=== PATIENT | male | born 1945 | race Caucasian/White ===

== ENCOUNTER 2016-10-16 18:36 | Inpatient (IN) ==
[2016-10-16] MEDS ORDERED: SOLU-MEDROL IV ONE (18:46)
[2016-10-16] MEDS ORDERED: DUONEB (A & A) INH ONE (18:46)
[2016-10-16] MEDS ORDERED: LEVAQUIN 750 MG in NS 150 ML IV ONE (18:46)
--- NOTE | 2016-10-16 18:56 | PROVIDER DOCUMENTATION ---
HPI-Respiratory General - General Chief Complaint: Shortness of Breath Stated Complaint: SOB/CP Time Seen by Provider: 10/16/16 18:45 Source: patient, EMS Allergies/Adverse Reactions: Patient Allergies Allergy/AdvReac Type Severity Reaction Status Date / Time codeine Allergy Unknown Verified 01/19/16 01:25 vancomycin Allergy NAUSEA/VOMI Verified 01/28/16 08:32 TING Home Medications: Home Medication List Medication Instructions Recorded Confirmed Last Taken Type Carvedilol [Coreg] 3.125 mg PO BID 08/24/12 10/16/16 10/16/16 08:00 History Pioglitazone HCl [Actos] 45 mg PO DAILY 08/24/12 10/16/16 10/16/16 08:00 History Gabapentin [Neurontin] 400 mg PO TID 07/28/14 10/16/16 10/16/16 08:00 History Furosemide [Lasix] 40 mg PO DAILY 08/08/14 10/16/16 10/16/16 08:00 History Omeprazole [Prilosec] 20 mg PO DAILY 06/24/15 10/16/16 10/16/16 08:00 History Potassium Chloride 10 meq PO DAILY 06/24/15 10/16/16 10/16/16 08:00 History Ipratropium/Albuterol INH 2 puff INH PRN PRN 10/18/15 10/16/16 10/16/16 History [Combivent Respimat Inhaler] Meclizine HCl [Antivert] 25 mg PO Q6H PRN PRN #20 tablet 10/18/15 10/16/1610/16 08:00 Rx Metformin HCl [Fortamet] 1,000 mg PO BID 10/18/15 10/16/16 10/16/16 08:00 History Topiramate [Topamax] 25 mg PO BID 10/18/15 10/16/16 10/16/16 History Escitalopram [Lexapro] 10 mg PO DAILY 01/19/16 10/16/16 10/16/16 08:00 History Glipizide [Glucotrol] 5 mg PO BID 01/19/16 10/16/16 10/16/16 08:00 History Sulindac 200 mg PO BID 01/19/16 10/16/16 10/16/16 08:00 History Morphine Sulfate [Morphine Sulfate 15 mg PO TID PRN 07/24/16 10/16/16 10/16/16 History ER] Atorvastatin Calcium [Lipitor] 40 mg PO DAILY 10/16/16 10/16/16 10/16/16 08:00 History Levofloxacin [Levaquin] 500 mg PO DAILY 10/16/16 10/16/16 10/16/16 08:00 History 1po qd Losartan [Cozaar] 50 mg PO DAILY 10/16/16 10/16/16 10/16/16 08:00 History Prednisone 10 mg PO DIRECTED 10/16/16 10/16/16 10/16/16 08:00 History Trazodone HCl 150 mg PO QHS 10/16/16 10/16/16 10/15/16 History - History of Present Illness-Resp Nature of Presenting Problem: Pt is a 71 yom who presents to ER via EMS with CC of chest pain and shortness of breath that has been intermittent since yesterday. Pt reports that his chest hurts more on his L side, but reports it's not as bad anymore (pt was given 4x81mg aspirin, 1xnitro, and breathing treatment [employer]). Pt is a diabetic and EMS reports that pt's blood sugar was 483 when they arrived on scene, and pt was also on his CPAPP. Pt reports that he has been diagnosed with a cold x3 days and is currently taking antibiotics. Quality of Pain: reports: tightness Severity in ED: reports: severe Onset/Duration: reports: 24 hours ago Timing: reports: still present, intermittent Cough Quality/Degree: reports: moderate, productive cough, sputum Current Respiratory Medication Therapy: Initiated A/A nebulizer Modifying Factors: improves with: albuterol nebulizer Associated Symptoms: reports: chest pain/soreness, cough, heart racing, hurts to breathe, hyperventilating, shortness of breath, short of breath, wheezing. denies: dizziness, lightheadedness, sinus pain, sore throat, sweaty Recently seen or treated by another doctor?: Yes (x3 days ago) Review of Systems - Adult - REVIEW OF SYSTEMS - ADULT Constitutional: denies: chills, fever, fatique, night sweats, weight gain, weight loss Eyes: reports: no symptoms reported Ears, Nose, Mouth & Throat: reports: no symptoms reported Cardiovascular: reports: chest pain, irregular heart rate, palpitations. denies : edema, heart murmur, orthopnea, poor circulation, PND, syncope Respiratory: reports: chronic cough, cough, shortness of breath, wheezing. denies: dyspnea on exertion, excessive sputum production, hemoptysis, pleurisy Gastrointestinal: reports: no symptoms reported Genitourinary: reports: no symptoms reported Musculoskeletal: reports: no symptoms reported Integumentary: reports: no symptoms reported Neurological: reports: no symptoms reported Psychiatric: reports: no symptoms reported Endocrine: reports: no symptoms reported Hematologic/Lymphatic: reports: no symptoms reported Allergic/Immunologic: reports: no symptoms reported All Other Systems: Reviewed and Negative Past History - Adult - PAST MEDICAL HISTORY-ADULT Review of Records: reports: Nursing Assessment Review, Medications Reviewed Cardiovascular: reports: HTN Respiratory: reports: COPD, sleep apnea Musculoskeletal: reports: intervertebral disc disease Endocrine/Immune: reports: Diabetes - PRIOR SURGERIES/PROCEDURES Surgical/Procedure History: reports: appendectomy, cholecystectomy, tonsillectomy, joint replacement (bilateral knees x 3), back/neck, other ( cataract surgery; right bka) - IMMUNIZATION STATUS Childhood Immunizations: See Nurse Assessment Flu Vaccine: See Nurse Assessment Physical Exam-General - PHYSICAL EXAM-ADULT Initial Vital Signs Reviewed: Yes - CONSTITUTIONAL General Appearance: alert, severe distress, obese. negative: appears well, no apparent distress, mild distress, moderate distress, cachetic, thin, anxious, lethargic, slow to respond, obtunded, combative - NECK Neck: non-tender, full range of motion, supple. negative: C-spine tenderness, limited range of motion, lymphadenopathy - RESPIRATORY Respiratory: chest non-tender, respiratory distress, accessory muscle use, rhonchi (bilateral), wheezing (bilateral inspiratory/expiratory). negative: lungs clear, normal breath sounds, decreased breath sounds - CARDIOVASCULAR Cardiovascular: normal peripheral pulses, tachycardia. negative: regular rate, rhythm, bradycardia - MUSCULOSKELETAL Extremity: normal range of motion, non-tender, normal gait, normal inspection, pedal edema (+3 LLE edema), swelling, other (Pt had RLE amputated at knee). negative: pulse deficit, tenderness - SKIN Integumentary: normal color, normal turgor, warm/dry. negative: abrasion(s), laceration(s), swelling, tenderness - NEUROLOGIC Neurologic: grossly normal, no motor/sensory deficits. negative: focal weakness , motor weakness, sensory deficit - PSYCHIATRIC Psych/Mental Status: normal thought content, normal thought process, oriented x 3, anxious, disheveled. negative: normal mood/affect, disoriented x 3, depressed affect, paranoid, tearful Progress - PLAN OF CARE/RESULTS Progress/Plan/Lab Results: Orders Category Date Time Status Saline Loc NOW Care 10/16/16 18:46 Active CHEST-PORTABLE [RAD] Stat Exams 10/16/16 19:33 Taken ABG [RESP] Routine Lab 10/16/16 20:15 Completed BLOOD CULTURE [BLDCUL] Stat Lab 10/16/16 19:01 Results CBC WITH DIFF [HEME] Stat Lab 10/16/16 18:42 Completed COMPREHENSIVE METABOLIC PANEL [CHEM] Stat Lab 10/16/16 18:42 Completed LACTATE, PLASMA [CHEM] Stat Lab 10/16/16 19:01 Completed PRO B-NATRIURETIC PEPTIDE Stat Lab 10/16/16 18:42 Completed TROPONIN T Stat Lab 10/16/16 18:42 Completed Albuterol 2.5MG/Ipratrop 0.5MG [Duoneb (A & A)] Med 10/16/16 18:46 Discontinued 3 ml INH NOW ONE CefTRIAXONE 1 GM/NS [Rocephin 1 gm/Ns] 50 ml Med 10/16/16 20:49 Discontinued IV NOW Insulin Human Regular [Humulin R] Med 10/16/16 20:48 Discontinued 10 unit IV NOW ONE Levofloxacin [Levaquin] 750 mg Med 10/16/16 18:46 Discontinued 0.9% Sodium Chloride Inj [Ns] 150 ml IV NOW Methylprednisolone Sod Succ [Solu-Medrol] Med 10/16/16 18:46 Discontinued 125 mg IV NOW ONE Aerosol Treatments Routine Oth 10/16/16 18:49 Completed Aerosol Treatments Stat Oth 10/16/16 18:49 Completed Pulse Oximetry Stat Oth 10/16/16 18:46 Completed EKG [EKG] Stat Ther 10/16/16 18:43 Ordered Laboratory Tests 10/16/16 10/16/16 03 18:42 18:42 18:42 WBC 10.32 RBC 4.47 L Hgb 13.6 L Hct 39.3 L MCV 87.9 MCH 30.4 MCHC 34.6 RDW Std Deviation 15.3 H Plt Count 273 MPV 9.9 Immature Gran % (Auto) 0.5 Neut % (Auto) 88.4 H Lymph % (Auto) 8.5 L [place] % (Auto) 2.4 Eos % (Auto) 0.1 Baso % (Auto) 0.1 Immature Gran # (Auto) 0.05 H Neut # (Auto) 9.12 H Lymph # (Auto) 0.88 L [place] # (Auto) 0.25 Eos # (Auto) 0.01 Baso # (Auto) 0.01 Segmented Neutrophils 88 H Band Neutrophils 2 H Lymphocytes 8 L Monocytes 2 Anisocytosis OCCASIONAL Spherocytes OCCASIONAL Ovalocytes OCCASIONAL Specimen Type Sample Site pH pCO2 pO2 HCO3 Base Excess Oxyhemoglobin ABG O2 Sat (Calculated) ABG O2 Saturation ABG Carboxyhemoglobin ABG Methemoglobin Vinay Test Total Hemoglobin Lactate Liter Flow Blood Gas Modality Sodium 133 L Potassium 4.5 Chloride 97 L Carbon Dioxide 17 L Anion Gap 19 BUN 19 Creatinine 1.0 Estimated GFR/1.73 m2 > 60 BUN/Creatinine Ratio 19 Glucose 436 H* Calculated Osmolality 287 Calcium 9.1 Total Bilirubin 0.29 AST 15 ALT 29 Alkaline Phosphatase 105 Troponin T < 0.010 Eie-N-Llvqwjtzvtf Pept Total Protein 7.1 Albumin 4.1 Globulin 3.0 Albumin/Globulin Ratio 1.4 Plasma Lactate 10/16/16 10/16/16 10/16/16 18:42 19:01 20:15 WBC RBC Hgb Hct MCV MCH MCHC RDW Std Deviation Plt Count MPV Immature Gran % (Auto) Neut % (Auto) Lymph % (Auto) [place] % (Auto) Eos % (Auto) Baso % (Auto) Immature Gran # (Auto) Neut # (Auto) Lymph # (Auto) [place] # (Auto) Eos # (Auto) Baso # (Auto) Segmented Neutrophils Band Neutrophils Lymphocytes Monocytes Anisocytosis Spherocytes Ovalocytes Specimen Type ARTERIAL Sample Site R RADIAL pH 7.35 pCO2 36 pO2 132 H HCO3 20.8 Base Excess -5.1 L Oxyhemoglobin 93.0 L ABG O2 Sat (Calculated) 17.7 ABG O2 Saturation 98.0 ABG Carboxyhemoglobin 3.70 H ABG Methemoglobin 1.5 Vinay Test YES Total Hemoglobin 13.4 Lactate 2.60 H Liter Flow 6.0 Blood Gas Modality COOL AEROSOL Sodium Potassium Chloride Carbon Dioxide Anion Gap BUN Creatinine Estimated GFR/1.73 m2 BUN/Creatinine Ratio Glucose Calculated Osmolality Calcium Total Bilirubin AST ALT Alkaline Phosphatase Troponin T Eok-Y-Lzliuigpfcj Pept 1068 H Total Protein Albumin Globulin Albumin/Globulin Ratio Plasma Lactate 3.2 H - EKG 1 Time of EKG reading by physician:: 18:46 EKG Read and Signed by:: Alpa Pearl EKG Interpretation (*Must complete 3 of following elements*): Abnormal (Low voltage QRS; Septal infarct, age undetermined) Rate: 92 Rhythm: NSR - XRAY 1 XRAY: Bilateral XRAY Study: Chest (Bronchitis; COPD; Possible RLL pneumonia) Impression: See EMR Report XRAY Interpretation: See report - CONSULTS/PCP/HOSPITALIST Notification #1 *Consult/PCP/Hospitalist*: Dr. Orantes (Hospitalist) Time Discussed: 02:02 Consult Disposition: Admit Departure - Departure Time of Disposition Order: 02:01 DIAGNOSIS: COPD exacerbation, Shortness of breath Disposition: ADMITTED INPATIENT 09 Certified Medical Emergency: Emergent Condition: Stable Attestation - Scribe Verification/Attestation Scribe:: Philip Jenkins Acting as Scribe for:: Robinson Parker Scribe documention review:: This chart was documented by a scribe and accurately reflects the service the provider performed and the decisions made by the provider.
[2016-10-16 19:45] LABS: BASO% 0.1 % (0.0-0.8); EOS# 0.01 X1000 (0.0-0.7); EOS% 0.1 % (0.0-10.0); HEMATOCRIT 39.3 % (42.0-52.0); HEMOGLOBIN 13.6 g/dL (14.0-18.0); IMM GRAN# 0.05 X1000 (0.0-0.04); IMM GRAN% 0.5 % (0.0-0.5); LYMPH# 0.88 X1000 (1.2-3.4); LYMPH% 8.5 % (20.5-51.1); MANUAL DIFF NEEDED? YES; MCH 30.4 PG (27-31); MCHC 34.6 g/dL (33-37); MCV 87.9 FL (81-99); MONO# 0.25 X1000 (0.11-0.59); MONO% 2.4 % (1.7-9.3); MPV 9.9 FL (7.4-10.4); NEUT% 88.4 % (42.2-75.2); PLT 273 X1000 (130-400); RBC 4.47 XMIL (4.7-6.1)
[2016-10-16 19:55] LABS: AGAP 19; ALBUMIN 4.1 g/dL (3.5-5.0); ALKALINE PHOSPHATASE 105 U/L (32-122); BUN 19 mg/dL (8-22); CALCIUM 9.1 mg/dL (8.8-10.2); CHLORIDE 97 mmol/L (98-107); COSMO 287; GOT 15 U/L (10-34); GPT 29 U/L (10-44); POTASSIUM 4.5 mmol/L (3.5-5.1); SODIUM 133 mmol/L (136-145); TCO2 17 mmol/L (25-35); TOTAL BILIRUBIN 0.29 mg/dL (0.20-1.00); TOTAL PROTEIN 7.1 g/dL (6.3-8.3)
[2016-10-16 20:29] LABS: ALLEN TEST YES; BE -5.1 mmoll (-3.0-3.0); BLOOD TYPE ARTERIAL; DRAW SITE R RADIAL; METHB 1.5 % (0.0-1.5); O2(CT) 17.7 mL/dL (15.0-23.0); PCO2(98.6) 36 mmHg (35-45); PO2(98.6) 132 mmHg (60-100); SAMPLE BLOOD; THB 13.4 g/dL (11.5-17.4); pH(98.6) 7.35 (7.35-7.45)
[2016-10-16 20:30] LABS: MODALITY COOL AEROSOL
[2016-10-16] MEDS ORDERED: HUMULIN R IV ONE (20:48)
[2016-10-16] MEDS ORDERED: ROCEPHIN 1 GM/NS 50 ML IV ONE (20:49)
[2016-10-16 21:08] LABS: BANDS 2 % (0-1); LYMPHS 8 % (21-51); MONO 2 % (1-9)
[2016-10-17] MEDS ORDERED: HUMULIN R IV ONE ×2 (02:02→02:37)
[2016-10-17] MEDS ORDERED: LASIX IV ONE (02:04)
[2016-10-17 02:17] LABS: URINE MICRO REVIEW NEEDED? NO; URINE SOURCE VOIDED
[2016-10-17 02:20] LABS: BILIRUBIN URINE NEGATIVE (NEGATIVE); BLOOD URINE NEGATIVE (NEGATIVE); COLOR YELLOW; GLUCOSE URINE >1000 mg/dL (NEGATIVE); LEUKOCYTES URINE NEGATIVE (NEGATIVE); NITRITE URINE NEGATIVE (NEGATIVE); PROTEIN URINE NEGATIVE (NEGATIVE); SP GRAVITY URINE 1.025; TURBIDITY URINE CLEAR (CLEAR); UROBILINOGEN URINE NORMAL (NORMAL)
[2016-10-17 02:21] LABS: UR EPITHELIAL CELLS <10 /HPF (<10); URINE BACTERIA NEGATIVE /HPF; URINE RBC <10 /HPF (<10); URINE WBC <10 /HPF (<10)
[2016-10-17] MEDS ORDERED: NICODERM PATCH TD ONE (06:25)
[2016-10-17] MEDS ORDERED: TESSALON PO PRN (06:25)
[2016-10-17] MEDS: HUMULIN R SUBQ SCH ×4 (07:00→20:04)
--- NOTE | 2016-10-17 08:08 | HISTORY AND PHYSICAL ---
CHIEF COMPLAINT: Shortness of breath x3 days. HISTORY OF PRESENTING ILLNESS: A 71-year-old, obese male with a history of COPD , hypertension, diabetes mellitus type 2, presents to the emergency department with 3-days' history of worsening shortness of breath. The patient states that he was having difficulty breathing. He could not catch his breath at times. He was using his CPAP machine all night long but he did not have any improvement. He was evaluated in the ER and due to his presenting symptoms, it was thought that he would need hospitalization for further management. At the time of my examination, he had denied any headache, fever, chills, chest pain, hemoptysis, melena, weight changes, or complaint of shortness of breath. PAST MEDICAL HISTORY: Include diabetes mellitus type 2, hypertension, hyperlipidemia, COPD, sleep apnea. PAST SURGICAL HISTORY: Back surgery, cervical fusion, cataract surgery, cholecystectomy, appendectomy. ALLERGIES: Codeine and vancomycin. CURRENT MEDICATIONS: Listed in the MAR. SOCIAL HISTORY: Fifty pack years history of smoking. Denies any history of alcohol or illicit drug use. FAMILY HISTORY: Positive for coronary disease in mother. REVIEW OF SYSTEMS: Twelve point systems listed as in HPI. Other systems negative. PHYSICAL EXAMINATION: GENERAL: Cooperative, friendly, obese male. He is resting more comfortably now. VITAL SIGNS: Temperature 97.9 degrees, pulse 80, respirations 26, blood pressure 177/97. HEENT: Atraumatic, normocephalic. Extraocular movements intact. PERRLA. NECK: No masses. CHEST: Rhonchi. CARDIOVASCULAR: Regular rate and rhythm. ABDOMEN: Soft, obese, positive bowel sounds. EXTREMITIES: Trace edema. 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 NEURO: He is awake, alert, oriented x3. : No bladder distention. SKIN: Warm. LABORATORIES AND STUDIES: Sodium 133, potassium 4.5, chloride 97, CO2 17, BUN is 19, creatinine is 1.0, glucose is 436. WBC 10.32, hemoglobin 13.6, hematocrit 39.3, platelets is 273,000. ASSESSMENT: A 71-year-old male with a history of chronic obstructive pulmonary disease, diabetes mellitus type 2, and hypertension, presented to the emergency department with 3 days' history of worsening shortness of breath. He is found to be in chronic obstructive pulmonary disease exacerbation. He will need hospitalization for further management. 1. Acute chronic obstructive pulmonary disease exacerbation. 2. Diabetes mellitus type 2 with hyperglycemia. 3. Hypertension, uncontrolled. 4. Elevated B-type natriuretic peptide, suspected congestive heart failure. PLAN: 1. We will admit patient to medical floor with telemetry. 2. Continue with DuoNeb, IV Solu-Medrol. 3. Will use BiPAP if he does not have any improvement. 4. We will monitor blood glucose closely and put patient on sliding scale insulin regimen. 5. We will monitor blood pressure. Resume antihypertensive agent. 6. Continue with gentle diuresis, 6. We will continue to follow and reassess. 7. Please note the we will put patient on DVT prophylaxis with SCDs. ULYSSES
[2016-10-17] MEDS ORDERED: PRILOSEC PO SCH (09:00)
[2016-10-17] MEDS ORDERED: MUCOMYST 20% INH ONE (09:29)
[2016-10-17] MEDS: DUONEB (A & A) INH PRN ×4 (09:34→23:40)
[2016-10-17] MEDS: TOPAMAX PO SCH ×2 (10:00→20:02)
[2016-10-17] MEDS: COZAAR PO SCH (10:00)
[2016-10-17] MEDS: KLOR-CON PO SCH (10:00)
[2016-10-17] MEDS: LIPITOR PO SCH (10:00)
[2016-10-17] MEDS: LEXAPRO PO SCH (10:00)
[2016-10-17] MEDS: COREG PO SCH ×2 (10:04→20:02)
[2016-10-17] MEDS: NEURONTIN PO SCH ×3 (10:08→17:15)
[2016-10-17] MEDS: ROCEPHIN 1 GM/NS 50 ML IV SCH (10:17)
[2016-10-17] MEDS: LASIX IV SCH ×3 (10:17→17:29)
--- NOTE | 2016-10-17 11:28 | Diag Imaging Result Document ---
PROCEDURE NAME: CHEST-PORTABLE - 10/16/2016 PORTABLE CHEST: COMPARISON: 01/29/2016. FINDINGS: Heart size is normal. There is mild prominence of lower lung interstitial markings. There is no dense consolidation, substantial pleural effusion, or pneumothorax identified. There are prominent left first costochondral junction calcifications noted which appear essentially stable dating back to 06/10/2011. IMPRESSION: Mild prominence of lower lung interstitial markings. No other acute changes.
[2016-10-17] MEDS: SOLU-MEDROL IV SCH ×2 (12:34→20:02)
[2016-10-17] MEDS: MS CONTIN PO PRN (13:32)
[2016-10-17] MEDS ORDERED: INSULIN PEN NEEDLES ONE (14:22)
--- NOTE | 2016-10-17 16:18 | ECHO REPORT ---
ORDER DATE: 10/17/2016 INDICATIONS: COPD, obesity, CHF. FINDINGS: 1. Right atrium is moderately enlarged at 5.1 cm. 2. Mild tricuspid regurgitation. RV systolic pressure of 39. 3. Right ventricle does appear to be enlarged with normal RV systolic function. 4. Trace pulmonic insufficiency. 5. Mild left atrial enlargement 4.7 cm. 6. No mitral valve prolapse. Trace mitral regurgitation. No evidence of mitral stenosis. 7. Normal LV size, end-diastolic dimension of 5.7. Normal wall thicknesses with a posterior and interventricular septal wall thickness 1.0 and 1.1 cm respectively. Hyperdynamic LV systolic function. Estimated EF is greater than 70%. 8. Aortic valve opens well. It appears trileaflet. No evidence of stenosis or insufficiency. 9. Aorta appears normal in visualized segments. 10. No pericardial effusion seen. 11. This is technically difficult study secondary to the patient's obesity as well as COPD.
[2016-10-17] MEDS: PROTONIX IV SCH (17:15)
[2016-10-17] MEDS: ANTIVERT PO PRN (17:54)
[2016-10-17] MEDS: DESYREL PO SCH (20:02)
[2016-10-17] MEDS: MUCOMYST 20% INH SCH (20:18)
[2016-10-17] MEDS ORDERED: LEVEMIR SUBQ SCH (21:00)
[2016-10-18] MEDS: DUONEB (A & A) INH PRN ×6 (03:49→23:25)
[2016-10-18] MEDS: SOLU-MEDROL IV SCH ×3 (05:48→20:53)
[2016-10-18] MEDS: LASIX IV SCH ×2 (05:48→18:26)
[2016-10-18] MEDS: HUMULIN R SUBQ SCH ×4 (06:48→20:54)
[2016-10-18 07:39] LABS: BASO% 0.1 % (0.0-0.8); HEMATOCRIT 40.3 % (42.0-52.0); HEMOGLOBIN 13.9 g/dL (14.0-18.0); IMM GRAN# 0.04 X1000 (0.0-0.04); IMM GRAN% 0.4 % (0.0-0.5); LYMPH# 1.14 X1000 (1.2-3.4); LYMPH% 10.1 % (20.5-51.1); MANUAL DIFF NEEDED? YES; MCH 29.9 PG (27-31); MCHC 34.5 g/dL (33-37); MCV 86.7 FL (81-99); MONO# 0.36 X1000 (0.11-0.59); MONO% 3.2 % (1.7-9.3); MPV 9.4 FL (7.4-10.4); NEUT% 86.2 % (42.2-75.2); PLT 256 X1000 (130-400); RBC 4.65 XMIL (4.7-6.1)
[2016-10-18] MEDS: MUCOMYST 20% INH SCH ×2 (07:53→20:17)
[2016-10-18 08:06] LABS: AGAP 12; BUN 22 mg/dL (8-22); CALCIUM 9.3 mg/dL (8.8-10.2); CHLORIDE 97 mmol/L (98-107); COSMO 280; POTASSIUM 3.7 mmol/L (3.5-5.1); SODIUM 134 mmol/L (136-145); TCO2 25 mmol/L (25-35)
[2016-10-18 08:18] LABS: BANDS 2 % (0-1); LYMPHS 14 % (21-51); MONO 4 % (1-9)
[2016-10-18] MEDS: TOPAMAX PO SCH ×2 (11:14→20:52)
[2016-10-18] MEDS: COZAAR PO SCH (11:15)
[2016-10-18] MEDS: LEXAPRO PO SCH (11:15)
[2016-10-18] MEDS: COREG PO SCH ×2 (11:15→20:52)
[2016-10-18] MEDS: LIPITOR PO SCH (11:15)
[2016-10-18] MEDS: NEURONTIN PO SCH ×3 (11:15→18:25)
[2016-10-18] MEDS: ROCEPHIN 1 GM/NS 50 ML IV SCH (11:15)
[2016-10-18] MEDS: KLOR-CON PO SCH (11:15)
[2016-10-18] MEDS: NICODERM PATCH TD SCH (11:16)
[2016-10-18] MEDS: ANTIVERT PO PRN (12:09)
[2016-10-18] MEDS: MS CONTIN PO PRN ×2 (12:09→21:02)
--- NOTE | 2016-10-18 13:12 | PROGRESS NOTE ---
DATE: 10/18/2016 SUBJECTIVE: The patient is resting comfortably in bed. He states that his shortness of breath and wheezing have improved. He has no other complaints. OBJECTIVE: Vital signs: Temperature is 97.7, blood pressure 140/74, respiratory rate 17, O2 saturation is 100% on 3 L nasal cannula. General: This is a morbidly obese male lying in bed, in no acute distress. HEENT: Head is normocephalic and atraumatic. Heart: S1, S2, normal. Regular rate and rhythm. Lungs: Coarse breath sounds bilaterally. Mild expiratory wheezes. Abdomen: Positive bowel sounds. Soft, obese, nontender and nondistended. Extremities: No edema, no cyanosis, no calf tenderness. Neurologic: The patient is alert and oriented x3. DIAGNOSTIC DATA: White blood cell count is 11, hemoglobin 13, hematocrit 40, platelets 256. Sodium is 134, potassium 3.7, chloride 97, CO2 is 25, BUN is 22, creatinine 0.7, glucose 254. ASSESSMENT AND PLAN: 1. Acute chronic obstructive pulmonary disease exacerbation, slowly improving. Continue on IV steroids, IV antibiotics and scheduled bronchodilator therapy. The patient has been counseled to quit smoking. 2. Obstructive sleep apnea. Continue with CPAP at bedtime. 3. Diabetes mellitus type 2, uncontrolled. This is being worsened by the patient's high dose steroids that he is receiving right now. We will increase the patient's Levemir to 30 units subcutaneous twice a day. 4. Tobacco dependence. The patient has been counseled about smoking cessation. 5. Morbid obesity. Aware. 6. Hypertension. Controlled. 7. Diabetic neuropathy. Continue on Neurontin. 8. DVT prophylaxis. We will start the patient on Lovenox 40 mg subcutaneous daily. 9. We will consult Physical Therapy.
[2016-10-18] MEDS: PROTONIX IV SCH (15:20)
[2016-10-18] MEDS: DESYREL PO SCH (20:52)
[2016-10-18] MEDS: LEVEMIR SUBQ SCH (20:53)
[2016-10-19] MEDS: MS CONTIN PO PRN ×3 (04:03→21:35)
[2016-10-19] MEDS: SOLU-MEDROL IV SCH ×3 (04:04→21:38)
[2016-10-19 05:30] LABS: ALLEN TEST YES; BE -0.2 mmoll (-3.0-3.0); BLOOD TYPE ARTERIAL; DRAW SITE R RADIAL; METHB 1.3 % (0.0-1.5); O2(CT) 17.3 mL/dL (15.0-23.0); PCO2(98.6) 44 mmHg (35-45); PO2(98.6) 79 mmHg (60-100); SAMPLE BLOOD; SAO2 95.6 % (95.0-100.0); THB 13.1 g/dL (11.5-17.4); pH(98.6) 7.37 (7.35-7.45)
[2016-10-19 05:31] LABS: MODALITY CANNULA
[2016-10-19] MEDS: LASIX IV SCH ×2 (05:31→18:20)
[2016-10-19] MEDS: HUMULIN R SUBQ SCH ×4 (06:31→21:37)
[2016-10-19] MEDS: DUONEB (A & A) INH PRN ×5 (07:25→23:43)
[2016-10-19] MEDS: MUCOMYST 20% INH SCH ×2 (07:25→19:23)
[2016-10-19 07:47] LABS: BASO% 0.1 % (0.0-0.8); HEMATOCRIT 39.5 % (42.0-52.0); HEMOGLOBIN 13.6 g/dL (14.0-18.0); IMM GRAN# 0.04 X1000 (0.0-0.04); IMM GRAN% 0.3 % (0.0-0.5); LYMPH# 0.92 X1000 (1.2-3.4); LYMPH% 6.9 % (20.5-51.1); MANUAL DIFF NEEDED? YES; MCH 29.6 PG (27-31); MCHC 34.4 g/dL (33-37); MCV 86.1 FL (81-99); MPV 9.4 FL (7.4-10.4); NEUT% 89.7 % (42.2-75.2); PLT 261 X1000 (130-400); RBC 4.59 XMIL (4.7-6.1)
--- NOTE | 2016-10-19 07:53 | Diag Imaging Result Document ---
PROCEDURE NAME: CHEST-PORTABLE - 10/19/2016 PORTABLE CHEST X-RAY, 10/19/2016: COMPARISON: 10/16/2016 FINDINGS: The lungs are normally expanded and clear. Heart size and mediastinal contours are normal. No pneumothorax or pleural effusion. IMPRESSION: Negative exam.
[2016-10-19 08:02] LABS: AGAP 15; ALBUMIN 3.9 g/dL (3.5-5.0); BUN 27 mg/dL (8-22); CALCIUM 9.2 mg/dL (8.8-10.2); CHLORIDE 95 mmol/L (98-107); COSMO 285; POTASSIUM 3.9 mmol/L (3.5-5.1); SODIUM 135 mmol/L (136-145); TCO2 25 mmol/L (25-35)
[2016-10-19 08:55] LABS: LYMPHS 14 % (21-51); MONO 4 % (1-9)
[2016-10-19] MEDS: LEXAPRO PO SCH (09:24)
[2016-10-19] MEDS: COREG PO SCH ×2 (09:24→21:36)
[2016-10-19] MEDS: LIPITOR PO SCH (09:24)
[2016-10-19] MEDS: NICODERM PATCH TD SCH (09:24)
[2016-10-19] MEDS: ROCEPHIN 1 GM/NS 50 ML IV SCH (09:25)
[2016-10-19] MEDS: COZAAR PO SCH (09:25)
[2016-10-19] MEDS: KLOR-CON PO SCH (09:25)
[2016-10-19] MEDS: LEVEMIR SUBQ SCH ×2 (09:25→21:36)
[2016-10-19] MEDS: TOPAMAX PO SCH ×2 (09:25→21:38)
[2016-10-19] MEDS: NEURONTIN PO SCH ×3 (09:25→21:37)
[2016-10-19] MEDS ORDERED: SODIUM CHLORIDE 0.9% 20 ML ONE (10:17)
--- NOTE | 2016-10-19 10:51 | EKG Report ---
Test Performed on : 10/16/2016 6:46:11 PM Test Reason : CHEST PAIN Blood Pressure : / mmHG Vent. Rate : 092 BPM Atrial Rate : 092 BPM P-R Int : 142 ms QRS Dur : 084 ms QT Int : 366 ms P-R-T Axes : 053 -26 056 degrees QTc Int : 452 ms Normal sinus rhythm. Low voltage QRS Septal infarct (cited on or before 19-JAN-2016) Abnormal ECG When compared with ECG of 21-JUL-2016 15:36, Questionable change in initial forces of Anteroseptal leads Unconfirmed Result
[2016-10-19] MEDS: PROTONIX IV SCH (14:24)
--- NOTE | 2016-10-19 16:00 | PROGRESS NOTE ---
DATE: 10/19/2016 SUBJECTIVE: Mr. Hutton states he is breathing better. He says he is ready go home. He is still on oxygen. We need to find out if he needs oxygen at home. He came in on 10/17/2016 with shortness of breath for days. He is a 71-year-old with a history of COPD, hypertension, diabetes mellitus type 2. He came into emergency room with a 3-day history of worsening shortness of breath. States he was having difficulty breathing. Could not catch his breath at times. Using CPAP machine all night long but did not have any improvement. He was evaluated in the emergency room and with the presenting symptoms thought he would benefit from hospitalization. PAST MEDICAL HISTORY: Diabetes mellitus type 2, hypertension, hyperlipidemia, COPD sleep apnea. He has had back surgery, cervical fusion, cataract surgery, cholecystectomy, appendectomy. So patient was admitted with acute on chronic obstructive pulmonary disease, diabetes mellitus, hypertension. He had an elevated B type natriuretic peptide. He had an echocardiogram on 10/[address] Neumann. He has a little bit enlarged RV with normal RV systolic function, normal left ventricular size, hyperdynamic left systolic function, estimated ejection fraction 70%. OBJECTIVE: General: On exam today, awake and alert, but stated he wanted to go home, felt better. Vital signs: Temp 98 degrees, pulse 79, respirations 22, blood pressure 120/61. HEENT: Pupils equal, round, reactive. Lungs: Clear in all lung bennett. Cardiovascular: Regular rhythm and rate without murmur or S3. Abdomen: Soft. Skin: Warm and dry. Intake and output: Urine output was 2700 mL. LAB: From today, white count 13,270, hematocrit 39, platelet count 261,000. Sodium 135, potassium 3.9, chloride 95, BUN 27, creatinine 0.8, blood sugar 267, 278, 285. Chest x-ray: Negative exam. Lungs are normally expanded and clear. ASSESSMENT AND PLAN: 1. Acute on chronic chronic obstructive pulmonary disease or chronic obstructive pulmonary disease exacerbation. He was getting IV antibiotics mainly for potential bronchitis. He seems to have improved. We need to decide whether he needs oxygen at home. 2. Chronic obstructive pulmonary disease and sleep apnea. He is on CPAP at home at bedtime. 3. Diabetes mellitus type 2. Sugars have been well controlled. 4. Tobacco dependence. I have counseled him about smoking cessation. 5. Morbid obesity. 6. Hypertension. 7. Diabetic neuropathy, status post right [id number] amputation. 8. Reports that he is able to transfer from the bed to the wheelchair. Would like to have home health. We reviewed his orders and I do not see anything to change at this time. He is on methylprednisone. Will decrease this. He might get to go home tomorrow, depending on his O2 status. He is on a nicotine patch. He is getting insulin detemir 30 units subcutaneously b.i.d., Protonix 40 mg IV daily, Lipitor 40 mg a day, Neurontin 40 mg t.i.d., Lexapro 10 mg a day, Lasix 40 mg IV q.12 which I think we can stop, Cozaar 50 mg a day, Coreg 3.125 mg b.i.d., Antivert 25 mg p.o. t.i.d., Tessalon Perles as needed.
[2016-10-19] MEDS: DESYREL PO SCH (21:37)
[2016-10-20] MEDS: SOLU-MEDROL IV SCH (05:18)
[2016-10-20] MEDS: LASIX IV SCH (05:19)
[2016-10-20] MEDS: ANTIVERT PO PRN (05:23)
[2016-10-20 07:01] LABS: MANUAL DIFF NEEDED? NO
[2016-10-20] MEDS: DUONEB (A & A) INH PRN (07:12)
[2016-10-20] MEDS: MUCOMYST 20% INH SCH (07:12)
[2016-10-20 07:14] LABS: BASO% 0.1 % (0.0-0.8); HEMATOCRIT 40.2 % (42.0-52.0); IMM GRAN# 0.06 X1000 (0.0-0.04); IMM GRAN% 0.5 % (0.0-0.5); LYMPH# 1.24 X1000 (1.2-3.4); MCH 29.8 PG (27-31); MCHC 34.8 g/dL (33-37); MCV 85.5 FL (81-99); MONO# 0.68 X1000 (0.11-0.59); MONO% 5.5 % (1.7-9.3); MPV 9.3 FL (7.4-10.4); NEUT% 83.9 % (42.2-75.2); PLT 275 X1000 (130-400)
[2016-10-20 07:31] LABS: AGAP 14; ALBUMIN 3.7 g/dL (3.5-5.0); BUN 29 mg/dL (8-22); CHLORIDE 98 mmol/L (98-107); COSMO 283; POTASSIUM 4.1 mmol/L (3.5-5.1); SODIUM 136 mmol/L (136-145); TCO2 24 mmol/L (25-35)
[2016-10-20] MEDS: HUMULIN R SUBQ SCH (07:54)
[2016-10-20] MEDS: LEXAPRO PO SCH (08:00)
[2016-10-20] MEDS: COREG PO SCH (08:00)
[2016-10-20] MEDS: TOPAMAX PO SCH (08:00)
[2016-10-20] MEDS: NEURONTIN PO SCH (08:00)
[2016-10-20] MEDS: COZAAR PO SCH (08:00)
[2016-10-20] MEDS: LIPITOR PO SCH (08:00)
[2016-10-20] MEDS: NICODERM PATCH TD SCH (08:00)
[2016-10-20] MEDS: KLOR-CON PO SCH (08:00)
[2016-10-20] MEDS: LEVEMIR SUBQ SCH (08:01)
[2016-10-20] MEDS: ROCEPHIN 1 GM/NS 50 ML IV SCH (08:01)
[2016-10-20 08:36] VITALS: BP 144/66
--- NOTE | 2016-10-20 15:07 | DISCHARGE SUMMARY ---
ADMISSION DATE: 10/17/2016 DISCHARGE DATE: 10/20/2016 He presented on 10/17/2016 with shortness of breath, obese male with history of COPD, hypertension, diabetes mellitus type 2. Presented to the emergency room with 3-day history of worsening shortness of breath. He is having difficulty breathing. He could not catch his breath at times. Was using the CPAP machine all night long but did not have any improvement. He was evaluated in the ER and due to present symptoms thought he would need hospitalization. At the time of examination he denied headache, fever, chills, chest pain, hemoptysis, melena, weight changes or complained of shortness of breath. PAST MEDICAL HISTORY: Includes diabetes mellitus type 2, hypertension, hyperlipidemia, COPD, sleep apnea. PAST SURGICAL HISTORY: Back surgery, cervical fusion, cataract surgery, cholecystectomy, appendectomy. ALLERGIES: Codeine and vancomycin. 1. So he was admitted with acute chronic obstructive pulmonary disease exacerbation. Put on bronchodilators, put on some Solu-Medrol and steroid inhalers and he showed steady improvement with the and gas exchange. Able to taper down his methylprednisone to 40 mg IV daily. 2. Chronic COPD and sleep apnea with CPAP at night and he has CPAP at home. 3. He was not eligible for oxygen. 4. Diabetes mellitus type 2. Sugars were under good control. 5. Tobacco dependence. We got him on a nicotine patch. We will give him a prescription to take home. 6. Morbid obesity. 7. Hypertension. 8. Diabetic neuropathy status post right [id number] amputation. 9. Strength is good. Able to transfer from bed to chair. He did want home health. HOME MEDICATIONS: It looks like he will be on his DuoNeb, Lipitor 40 mg a day, Tessalon Perles 200 mg t.i.d. p.r.n. Coreg 3.125 mg b.i.d. We will stop his Rocephin. Lexapro 10 mg a day. Lasix, he was getting 40 mg by IV. Neurontin 400 mg t.i.d. Levemir 30 units subcutaneously b.i.d. Cozaar 50 mg a day. Antivert 25 mg t.i.d. p.r.n. He has a Medrol Dosepak at home which I will let him use, stop the Solu-Medrol. NicoDerm patch 21 mg a day. Protonix, he was getting 40 mg IV, I think we will stop that. Topamax 25 mg b.i.d. Desyrel 150 mg at bedtime. We will set him up to go home with home health.
== END 2016-10-20 09:22 | disposition home health service (06) | DRG 192 ==
LOC: EDBD → SUPCPDRO 18:36 → ED 18:36 → EDIPHOLD 10-17 03:38 → 3N 10-17 12:54
PROVIDERS: ATTEND Emergency Medicine
DX: J44.1 Chronic obstructive pulmonary disease with (acute) exacerbation (principal); E11.40 Type 2 diabetes mellitus with diabetic neuropathy, unspecified; E11.65 Type 2 diabetes mellitus with hyperglycemia; G47.33 Obstructive sleep apnea (adult) (pediatric); I10 Essential (primary) hypertension; E66.01 Morbid (severe) obesity due to excess calories; Z96.653 Presence of artificial knee joint, bilateral; F17.210 Nicotine dependence, cigarettes, uncomplicated; Z98.1 Arthrodesis status; Z82.49 Family history of ischemic heart disease and other diseases of the circulatory system; Z89.611 Acquired absence of right leg above knee; Z68.36 Body mass index [BMI] 36.0-36.9, adult
CPT/HCPCS: 71010; 80048; 80053; 80069; 81001; 82805; 82948; 83605; 83880; 84484; 85025; 87040; 93005; 93306; 94640; 94760; 94761; 94762; 94799; 96365; 96366; 96367; 96375; 96376; C9113; J0696; J1940; J2920; J2930; 97530-GP; S0164

== ENCOUNTER 2016-10-23 19:27 | Inpatient (IN) ==
[2016-10-23] MEDS ORDERED: ASPIRIN PO STA (19:35)
--- NOTE | 2016-10-23 19:41 | ED EKG INTERP ---
EKG Interpretation - EKG Time of EKG reading by physician:: 19:40 EKG Read and Signed by:: Robinson Parker EKG Interpretation (*Must complete 3 of following elements*): Abnormal (Low voltage QRS; Septal infarct, age undetermined) Rate: 78 Rhythm: NSR wiht sinus arrhythmia Attestation - Scribe Verification/Attestation Scribe:: Philip Jenkins Acting as Scribe for:: Robinson Parker Scribe documention review:: This chart was documented by a scribe and accurately reflects the service the provider performed and the decisions made by the provider.
[2016-10-23 19:49] LABS: MANUAL DIFF NEEDED? NO
[2016-10-23 19:54] LABS: BASO% 0.1 % (0.0-0.8); EOS# 0.12 X1000 (0.0-0.7); EOS% 0.8 % (0.0-10.0); HEMATOCRIT 40.5 % (42.0-52.0); HEMOGLOBIN 14.3 g/dL (14.0-18.0); IMM GRAN# 0.11 X1000 (0.0-0.04); IMM GRAN% 0.7 % (0.0-0.5); LYMPH# 2.78 X1000 (1.2-3.4); LYMPH% 18.1 % (20.5-51.1); MCH 30.3 PG (27-31); MCHC 35.3 g/dL (33-37); MCV 85.8 FL (81-99); MONO# 0.68 X1000 (0.11-0.59); MONO% 4.4 % (1.7-9.3); MPV 9.6 FL (7.4-10.4); NEUT% 75.9 % (42.2-75.2); PLT 274 X1000 (130-400); RBC 4.72 XMIL (4.7-6.1)
[2016-10-23 20:04] LABS: ALLEN TEST YES; BE -2.1 mmoll (-3.0-3.0); BLOOD TYPE ARTERIAL; DRAW SITE L BRACHIAL; METHB 1.3 % (0.0-1.5); O2(CT) 18.5 mL/dL (15.0-23.0); PCO2(98.6) 29 mmHg (35-45); PO2(98.6) 484 mmHg (60-100); SAMPLE BLOOD; SAO2 98.6 % (95.0-100.0); THB 13.2 g/dL (11.5-17.4); pH(98.6) 7.46 (7.35-7.45)
[2016-10-23 20:05] LABS: PROTIME 10.6 Seconds (9.2-11.7); PTT 28.4 Seconds (22.0-36.0)
[2016-10-23 20:06] LABS: MODALITY BI PAP
[2016-10-23 20:25] LABS: AGAP 14; ALBUMIN 3.7 g/dL (3.5-5.0); ALKALINE PHOSPHATASE 86 U/L (32-122); BUN 25 mg/dL (8-22); CALCIUM 9.2 mg/dL (8.8-10.2); CHLORIDE 96 mmol/L (98-107); CK PROFILE 53 U/L (24-204); COSMO 284; GOT 9 U/L (10-34); GPT 14 U/L (10-44); MAGNESIUM 1.8 mg/dL (1.5-2.7); POTASSIUM 4.3 mmol/L (3.5-5.1); SODIUM 129 mmol/L (136-145); TCO2 19 mmol/L (25-35); TOTAL BILIRUBIN 0.39 mg/dL (0.20-1.00); TOTAL PROTEIN 6.5 g/dL (6.3-8.3)
--- NOTE | 2016-10-23 20:32 | PROVIDER DOCUMENTATION ---
HPI-Respiratory General <Robinson Parker - Last Filed: 10/23/16 21:00> - General Source: patient - History of Present Illness-Resp Quality of Pain: reports: other (sob) Severity in ED: reports: moderate Onset/Duration: reports: 24 hours ago (yesterday afternoon) Timing: reports: still present Episode Frequency: occasional episodes Associated Symptoms: reports: chest pain/soreness, cough, hyperventilating, lightheadedness, shortness of breath, short of breath, wheezing. denies: dizziness, fever/chills, flu-like symptoms, headache, heart racing, hurts to breathe, muscle/bodyaches, nasal congestion, nasal drainage, sinus pain, sore throat, sweaty Similar Symptoms Previously?: Yes Recently seen or treated by another doctor?: Yes <Philip Jenkins - Last Filed: 10/23/16 22:04> - General Chief Complaint: Shortness of Breath Stated Complaint: sob Time Seen by Provider: 10/23/16 19:34 Allergies/Adverse Reactions: Patient Allergies Allergy/AdvReac Type Severity Reaction Status Date / Time codeine Allergy Unknown Verified 10/23/16 20:14 vancomycin Allergy NAUSEA/VOMI Verified 10/23/16 20:14 TING Home Medications: Home Medication List Medication Instructions Recorded Confirmed Last Taken Type Carvedilol [Coreg] 3.125 mg PO BID 08/24/12 10/23/16 10/23/16 History Pioglitazone HCl [Actos] 45 mg PO DAILY 08/24/12 10/23/16 10/23/16 History Gabapentin [Neurontin] 400 mg PO TID 07/28/14 10/23/16 10/23/16 History Furosemide [Lasix] 40 mg PO DAILY 08/08/14 10/23/16 10/23/16 History Omeprazole [Prilosec] 20 mg PO DAILY 06/24/15 10/23/16 10/23/16 History Potassium Chloride 1 tab PO DAILY 06/24/15 10/23/16 10/23/16 History Metformin HCl [Fortamet] 1 tab PO BID 10/18/15 10/23/16 10/23/16 History Topiramate [Topamax] 25 mg PO BID 10/18/15 10/23/16 10/23/16 History Glipizide [Glucotrol] 5 mg PO BID 01/19/16 10/23/16 10/23/16 History Sulindac 1 tab PO BID 01/19/16 10/23/16 10/23/16 History Atorvastatin Calcium [Lipitor] 1 tab PO DAILY 10/16/16 10/23/16 10/23/16 History Prednisone 10 mg PO DIRECTED 10/16/16 10/23/16 10/23/16 History Trazodone HCl 2 tab PO QHS 10/16/16 10/23/16 10/23/16 History Benzonatate [Tessalon] 200 mg PO TID PRN PRN #40 capsule 10/20/16 10/23/1610/23 Rx Docusate Sodium 1 tab PO PRN PRN 10/23/16 10/23/16 10/23/16 History Escitalopram Oxalate [Lexapro] 1 tab PO DAILY 10/23/16 10/23/16 10/23/16 History Meclizine HCl [Antivert] 1 tab PO BID 10/23/16 10/23/16 10/23/16 History Oxycodone HCl/Acetaminophen 0.5 - 1 tab PO PRN PRN 10/23/16 10/23/16 10/23/16 History [Oxycodone-Acetaminophen 10-325] - History of Present Illness-Resp Nature of Presenting Problem: Pt is a 71 yom who presents to ER via EMS with CC of sob. Pt reports that is started yesterday afternoon and now complains of chest tightness and increasing sob. Pt has hx of COPD and diabetes. (Philip Jenkins) Review of Systems - Adult - REVIEW OF SYSTEMS - ADULT Constitutional: denies: chills, fever, fatique, night sweats, weight gain, weight loss Eyes: reports: no symptoms reported Ears, Nose, Mouth & Throat: reports: no symptoms reported Cardiovascular: reports: chest pain. denies: edema, heart murmur, irregular heart rate, orthopnea, palpitations, poor circulation, PND, syncope Respiratory: reports: chronic cough, cough, shortness of breath, wheezing. denies: dyspnea on exertion, excessive sputum production, hemoptysis, pleurisy Gastrointestinal: reports: no symptoms reported Genitourinary: reports: no symptoms reported Musculoskeletal: denies: bone pain, back pain, frequent leg cramps, joint pain, joint swelling, muscle aches, muscle weakness, neck pain Integumentary: reports: no symptoms reported Neurological: reports: no symptoms reported Psychiatric: reports: no symptoms reported Endocrine: reports: no symptoms reported Hematologic/Lymphatic: reports: no symptoms reported Allergic/Immunologic: reports: no symptoms reported All Other Systems: Reviewed and Negative <Philip Jenkins - Last Filed: 10/23/16 22:04> Past History - Adult - PAST MEDICAL HISTORY-ADULT Review of Records: reports: Nursing Assessment Review, Medications Reviewed Cardiovascular: reports: HTN Respiratory: reports: COPD, sleep apnea Musculoskeletal: reports: intervertebral disc disease Endocrine/Immune: reports: Diabetes - PRIOR SURGERIES/PROCEDURES Surgical/Procedure History: reports: appendectomy, cholecystectomy, tonsillectomy, joint replacement (bilateral knees x 3), back/neck, other ( cataract surgery; right bka) - IMMUNIZATION STATUS Childhood Immunizations: See Nurse Assessment Flu Vaccine: See Nurse Assessment <Philip Jenkins - Last Filed: 10/23/16 22:04> Physical Exam-General - PHYSICAL EXAM-ADULT Initial Vital Signs Reviewed: Yes - CONSTITUTIONAL General Appearance: appears well, alert, moderate distress, obese, anxious. negative: no apparent distress, mild distress, severe distress, cachetic, thin, lethargic, slow to respond, obtunded, combative - NECK Neck: non-tender, full range of motion, supple. negative: C-spine tenderness, limited range of motion, lymphadenopathy - RESPIRATORY Respiratory: chest non-tender, respiratory distress (mild), rales, wheezing ( mild expiratory). negative: lungs clear, normal breath sounds - CARDIOVASCULAR Cardiovascular: normal peripheral pulses, regular rate, rhythm. negative: bradycardia, tachycardia, irregularly irregular - CHEST (BREASTS) Chest/Breast: no masses/lumps, no tenderness. negative: tenderness - GASTROINTESTINAL (ABDOMEN) Abdominal Exam: normal bowel sounds, non tender, soft. negative: abnormal bowel sounds, distended, tenderness, mass - MUSCULOSKELETAL Extremity: normal range of motion, non-tender, normal gait, swelling (+2 LLE pitting edema), other (Amputated RLE). negative: erythema, inflammation - SKIN Integumentary: normal color, normal turgor, warm/dry, swelling (+2 LLE pitting edema). negative: abrasion(s), diaphoresis, erythema, laceration(s), tenderness , warm - NEUROLOGIC Neurologic: grossly normal, no motor/sensory deficits. negative: facial droop, focal weakness, motor weakness, sensory deficit - PSYCHIATRIC Psych/Mental Status: normal thought content, normal thought process, oriented x 3, anxious, disheveled. negative: normal mood/affect <Philip Jenkins - Last Filed: 10/23/16 22:04> Progress - CONSULTS/PCP/HOSPITALIST Notification #1 *Consult/PCP/Hospitalist*: dr lora Time Discussed: 21:01 <Robinson Parker - Last Filed: 10/23/16 21:00> - XRAY 1 XRAY: Bilateral XRAY Study: Chest Impression: See EMR Report XRAY Interpretation: CHF; Cardiomegaly <Philip Jenkins - Last Filed: 10/23/16 22:04> - PLAN OF CARE/RESULTS Progress/Plan/Lab Results: Vital Signs - 24 hr 10/23/16 10/23/16 19:20 20:50 Temperature 98.2 F 98.0 F Pulse Rate 82 69 Respiratory 12 24 Rate Blood Pressure 150/73 133/82 O2 Sat by Pulse 100 100 Oximetry Orders Category Date Time Status Cardiac Monitoring DIRECTED Care 10/23/16 19:35 Active Saline Loc NOW Care 10/23/16 19:35 Active CHEST-1 VIEW [RAD] Stat Exams 10/23/16 19:36 Taken ABG [RESP] Routine Lab 10/23/16 19:58 Completed CBC WITH ELECTRONIC DIFF [HEME] Stat Lab 10/23/16 19:30 Completed CK PROFILE [SP CHEM] Stat Lab 10/23/16 19:30 Completed COMPREHENSIVE METABOLIC PANEL [CHEM] Stat Lab 10/23/16 19:30 Completed D-DIMER [CHEM] Stat Lab 10/23/16 19:30 Completed LACTATE, PLASMA [CHEM] Stat Lab 10/23/16 19:30 Completed MAGNESIUM [CHEM] Stat Lab 10/23/16 19:30 Completed PRO B-NATRIURETIC PEPTIDE Stat Lab 10/23/16 19:30 Completed PROTIME WITH INR [COAG] Stat Lab 10/23/16 19:30 Completed PTT [COAG] Stat Lab 10/23/16 19:30 Completed TROPONIN T Stat Lab 10/23/16 19:30 Completed 0.9% Sodium Chloride Inj [Ns] 500 ml Med 10/23/16 20:57 Active IV 250 mls/hr Aspirin Med 10/23/16 19:35 Discontinued 325 mg PO STAT STA CefTRIAXONE 1 GM/NS [Rocephin 1 gm/Ns] 50 ml Med 10/23/16 20:57 Discontinued IV NOW Insulin Human Regular [Humulin R] Med 10/23/16 20:57 Discontinued 15 unit IV NOW ONE Methylprednisolone Sod Succ [Solu-Medrol] Med 10/23/16 20:59 Discontinued 125 mg IV NOW ONE Ondansetron [Zofran] Med 10/23/16 20:57 Discontinued 4 mg IV NOW ONE BIPAP Stat Oth 10/23/16 19:30 Active EKG [EKG] Stat Ther 10/23/16 19:35 Ordered Laboratory Tests 10/23/16 10/23/16 10/23/16 19:30 19:30 19:30 WBC 15.39 H RBC 4.72 Hgb 14.3 Hct 40.5 L MCV 85.8 MCH 30.3 MCHC 35.3 RDW Std Deviation 14.6 H Plt Count 274 MPV 9.6 Immature Gran % (Auto) 0.7 H Neut % (Auto) 75.9 H Lymph % (Auto) 18.1 L [place] % (Auto) 4.4 Eos % (Auto) 0.8 Baso % (Auto) 0.1 Immature Gran # (Auto) 0.11 H Neut # (Auto) 11.69 H Lymph # (Auto) 2.78 [place] # (Auto) 0.68 H Eos # (Auto) 0.12 Baso # (Auto) 0.01 PT INR PTT (Actin FS) D-Dimer 0.25 Specimen Type Sample Site pH pCO2 pO2 HCO3 Base Excess Oxyhemoglobin ABG O2 Sat (Calculated) ABG O2 Saturation ABG Carboxyhemoglobin ABG Methemoglobin Vinay Test A-a O2 Difference Total Hemoglobin Lactate Blood Gas Modality Vent Mode FiO2 % Inspiratory BiPAP Expiratory BiPAP Sodium 129 L Potassium 4.3 Chloride 96 L Carbon Dioxide 19 L Anion Gap 14 BUN 25 H Creatinine 0.9 Estimated GFR/1.73 m2 > 60 BUN/Creatinine Ratio 28 Glucose 476 H* POC Glucose Calculated Osmolality 284 Calcium 9.2 Magnesium 1.8 Total Bilirubin 0.39 AST 9 L ALT 14 Alkaline Phosphatase 86 Creatine Kinase 53 Troponin T Gvg-B-Sxkyrlbvuck Pept Total Protein 6.5 Albumin 3.7 Globulin 2.8 Albumin/Globulin Ratio 1.3 Plasma Lactate 10/23/16 10/23/16 10/23/16 19:30 19:30 19:30 WBC RBC Hgb Hct MCV MCH MCHC RDW Std Deviation Plt Count MPV Immature Gran % (Auto) Neut % (Auto) Lymph % (Auto) [place] % (Auto) Eos % (Auto) Baso % (Auto) Immature Gran # (Auto) Neut # (Auto) Lymph # (Auto) [place] # (Auto) Eos # (Auto) Baso # (Auto) PT 10.6 INR 1.00 PTT (Actin FS) 28.4 D-Dimer Specimen Type Sample Site pH pCO2 pO2 HCO3 Base Excess Oxyhemoglobin ABG O2 Sat (Calculated) ABG O2 Saturation ABG Carboxyhemoglobin ABG Methemoglobin Vinay Test A-a O2 Difference Total Hemoglobin Lactate Blood Gas Modality Vent Mode FiO2 % Inspiratory BiPAP Expiratory BiPAP Sodium Potassium Chloride Carbon Dioxide Anion Gap BUN Creatinine Estimated GFR/1.73 m2 BUN/Creatinine Ratio Glucose POC Glucose Calculated Osmolality Calcium Magnesium Total Bilirubin AST ALT Alkaline Phosphatase Creatine Kinase Troponin T < 0.010 Uqx-P-Rwayxjpyhag Pept 586 H Total Protein Albumin Globulin Albumin/Globulin Ratio Plasma Lactate 10/23/16 10/23/16 10/23/16 19:30 19:34 19:58 WBC RBC Hgb Hct MCV MCH MCHC RDW Std Deviation Plt Count MPV Immature Gran % (Auto) Neut % (Auto) Lymph % (Auto) [place] % (Auto) Eos % (Auto) Baso % (Auto) Immature Gran # (Auto) Neut # (Auto) Lymph # (Auto) [place] # (Auto) Eos # (Auto) Baso # (Auto) PT INR PTT (Actin FS) D-Dimer Specimen Type ARTERIAL Sample Site L BRACHIAL pH 7.46 H pCO2 29 L pO2 484 H HCO3 23.2 Base Excess -2.1 Oxyhemoglobin 92.6 L ABG O2 Sat (Calculated) 18.5 ABG O2 Saturation 98.6 ABG Carboxyhemoglobin 4.80 H ABG Methemoglobin 1.3 Vinay Test YES A-a O2 Difference 193.0 Total Hemoglobin 13.2 Lactate 2.20 Blood Gas Modality BI PAP Vent Mode BIPAP FiO2 % 100.0 Inspiratory BiPAP 16.0 Expiratory BiPAP 6.0 Sodium Potassium Chloride Carbon Dioxide Anion Gap BUN Creatinine Estimated GFR/1.73 m2 BUN/Creatinine Ratio Glucose POC Glucose 382 H D Calculated Osmolality Calcium Magnesium Total Bilirubin AST ALT Alkaline Phosphatase Creatine Kinase Troponin T Mvl-E-Udbiceetysb Pept Total Protein Albumin Globulin Albumin/Globulin Ratio Plasma Lactate 2.8 H (Philip Jenkins) Departure - Departure Time of Disposition Order: 21:00 Certified Medical Emergency: Emergent <Robinson Parker - Last Filed: 10/23/16 21:00> - Departure Time of Disposition Order: 22:04 Certified Medical Emergency: Emergent <Philip Jenkins - Last Filed: 10/23/16 22:04> - Departure DIAGNOSIS: Shortness of breath, COPD exacerbation Disposition: ADMITTED INPATIENT 09 Condition: Stable Attestation - Scribe Verification/Attestation Scribe:: Philip Jenkins Acting as Scribe for:: Robinson Parker Scribe documention review:: This chart was documented by a scribe and accurately reflects the service the provider performed and the decisions made by the provider. <Philip Jenkins - Last Filed: 10/23/16 22:04> Physician Attestation
[2016-10-23] MEDS ORDERED: NS 500 ML IV ONE (20:57)
[2016-10-23] MEDS ORDERED: ROCEPHIN 1 GM/NS 50 ML IV ONE (20:57)
[2016-10-23] MEDS ORDERED: HUMULIN R IV ONE (20:57)
[2016-10-23] MEDS ORDERED: ZOFRAN IV ONE (20:57)
[2016-10-23] MEDS ORDERED: SOLU-MEDROL IV ONE (20:59)
--- NOTE | 2016-10-23 22:44 | HISTORY AND PHYSICAL ---
CHIEF COMPLAINT: Shortness of breath. HISTORY OF PRESENTING ILLNESS: This is a 71-year-old male with a history of diabetes mellitus type 2, COPD and hypertension who was just discharged from the hospital about 3 days ago after treatment for COPD exacerbation. He presents again with similar complaints that he could not breathe. He states that he was gasping for breath at times and it seemed to be worsening. He states that he uses a CPAP machine and he did not have any improvement however. Subsequently he came to the emergency room where he was evaluated and was somewhat dyspneic. He was put on BiPAP and he had improvement. However, due to his presenting symptoms he will need hospitalization for further management. At the time of my examination he denied any headache, fever, chills, chest pain, hemoptysis, melena, weight changes, but complained of shortness of breath. PAST MEDICAL HISTORY: Diabetes mellitus type 2, COPD, hypertension. PAST SURGICAL HISTORY: Cholecystectomy, cervical fusion, cataract surgery, back surgery. ALLERGIES: Codeine and vancomycin. CURRENT MEDICATIONS: Insulin. SOCIAL HISTORY: 50+ pack years history of smoking. Denies any history of alcohol or illicit drug use. FAMILY HISTORY: No history of coronary disease. REVIEW OF SYSTEMS: [employer] point systems is as in HPI. Other systems negative. PHYSICAL EXAMINATION: GENERAL: Cooperative, friendly, obese male. He is in some moderate respiratory distress. VITAL SIGNS: Temperature 98.2 degrees, pulse 82, respiration 24, blood pressure 133/82. HEENT: Atraumatic, normocephalic. Extraocular movements intact. PERRLA. NECK: No masses. CHEST: Rhonchi. CARDIOVASCULAR: Regular rate and rhythm. ABDOMEN: Soft, obese, positive bowel sounds. EXTREMITIES: Trace edema. NEUROLOGIC: He is awake, alert, oriented x3. GENITOURINARY: No bladder distention. SKIN: Warm. LABORATORIES AND STUDIES: WBC 15.39, hemoglobin 14.3, hematocrit 40.5, platelets 274,000. Sodium 129, potassium 4.3, chloride 96, CO2 is 19, BUN is 25, creatinine 0.9, glucose 476. ASSESSMENT: A 71-year-old male with a history of COPD who was just discharged from the hospital about 3 days ago. He presents again with similar symptoms of shortness of breath. He is found to be in COPD exacerbation. He will be hospitalized for further management. 1. Chronic obstructive pulmonary disease exacerbation. 2. Hyponatremia. 3. Diabetes mellitus type 2 with hyperglycemia. 4. Hypertension. 5. Morbid obesity. PLAN: 1. We will admit patient to medical floor with telemetry. 2. Continue patient on BiPAP and continue gentle hydration. 3. Monitor blood glucose and put patient on sliding scale insulin regimen. 4. Monitor blood pressure and antihypertensive agent. 5. Counseled patient on weight reduction. 6. Put patient on DVT prophylaxis with SCDs. 7. We will continue to follow and reassess.
--- NOTE | 2016-10-23 23:14 | Diag Imaging Result Document ---
PROCEDURE NAME: CHEST-1 VIEW - 10/23/2016 SINGLE FRONTAL RADIOGRAPH OF THE CHEST: COMPARISON: 10/19/2016. FINDINGS: The lungs are grossly clear. There is no discrete pleural fluid collection or pneumothorax. The cardiomediastinal silhouette and upper airway are grossly unremarkable. IMPRESSION: No evidence of acute chest pathology.
[2016-10-23] MEDS ORDERED: COLACE PO PRN (23:35)
[2016-10-24] MEDS ORDERED: PERCOCET-10 PO PRN (00:12)
[2016-10-24] MEDS: LEVAQUIN 500 MG/D5W 100 ML IV SCH ×2 (00:40→23:17)
[2016-10-24] MEDS: PERCOCET-10 PO PRN ×2 (00:40→08:28)
[2016-10-24] MEDS: DUONEB (A & A) INH PRN ×3 (01:05→07:22)
[2016-10-24 05:19] LABS: EOS# 0.02 X1000 (0.0-0.7); EOS% 0.2 % (0.0-10.0); HEMATOCRIT 38.5 % (42.0-52.0); IMM GRAN# 0.09 X1000 (0.0-0.04); IMM GRAN% 0.9 % (0.0-0.5); LYMPH# 1.05 X1000 (1.2-3.4); LYMPH% 10.4 % (20.5-51.1); MANUAL DIFF NEEDED? YES; MCHC 33.8 g/dL (33-37); MCV 85.9 FL (81-99); MONO# 0.13 X1000 (0.11-0.59); MONO% 1.3 % (1.7-9.3); MPV 9.4 FL (7.4-10.4); NEUT% 87.2 % (42.2-75.2); PLT 240 X1000 (130-400); RBC 4.48 XMIL (4.7-6.1)
[2016-10-24] MEDS: SOLU-MEDROL IV SCH ×3 (05:26→16:09)
[2016-10-24 05:28] LABS: BANDS 4 % (0-1); LYMPHS 10 % (21-51); MONO 2 % (1-9)
[2016-10-24 05:36] LABS: AGAP 10; BUN 26 mg/dL (8-22); CALCIUM 8.8 mg/dL (8.8-10.2); CHLORIDE 97 mmol/L (98-107); COSMO 282; POTASSIUM 5.3 mmol/L (3.5-5.1); SODIUM 131 mmol/L (136-145); TCO2 24 mmol/L (25-35)
[2016-10-24] MEDS: HUMULIN R SUBQ SCH ×4 (06:29→20:21)
[2016-10-24] MEDS: ANTIVERT PO SCH ×2 (08:27→20:21)
[2016-10-24] MEDS: NEURONTIN PO SCH ×3 (08:28→16:13)
[2016-10-24] MEDS: COREG PO SCH ×2 (08:28→20:20)
[2016-10-24] MEDS: LASIX PO SCH (08:28)
[2016-10-24] MEDS: PRILOSEC PO SCH (08:28)
[2016-10-24] MEDS: LEXAPRO PO SCH (08:29)
[2016-10-24] MEDS: LIPITOR PO SCH (08:29)
[2016-10-24] MEDS: TOPAMAX PO SCH ×2 (08:29→20:21)
[2016-10-24] MEDS: DUONEB (A & A) INH SCH ×2 (15:52→23:07)
--- NOTE | 2016-10-24 16:20 | PROGRESS NOTE ---
DATE: 10/24/2016 SUBJECTIVE: Patient reports feeling a little bit better although still short of breath and he had a mildly labored breathing. OBJECTIVE: Vitals: Temperature 98.8 degrees, heart rate 89, respiratory rate 20, blood pressure 130/60, O2 saturation 100% on 5 L nasal cannula. General Examination: This is a chronically ill- looking and frail 71-year-old male lying in bed in no acute distress. HEENT: Head is normocephalic, atraumatic. Anicteric sclerae and pale conjunctivae. Mucous membranes moist. Neck: Supple. No JVD noted. No carotid bruits. No lymphadenopathy. No thyromegaly. Cardiovascular: S1, S2 heard. No murmurs, gallops or rubs. Regular rate and rhythm. Respiratory: Clear bilaterally to auscultation. No work of breathing or using accessory muscles. Decreased breath sounds in both pulmonary bennett with wheezing mostly in both bases, although patient is not using accessory muscles patient noticed to be in mild respiratory distress. Abdomen: Soft, nontender to palpation. Bowel sounds present. No organomegaly. Extremities: No clubbing, cyanosis or edema. Peripheral pulses present in both legs. Neurological: Patient alert and oriented x3. Able to move 4 extremities. Cranial nerves 2-12 grossly normal. LABORATORY DATA: White cell count 10.11, hemoglobin 13.0, hematocrit 38.5, platelets 240,000. BMP, sodium 131, potassium 5.3, chloride 97, bicarb 24, BUN 26, creatinine 0.9, glucose 365. ASSESSMENT/PLAN: 1. Chronic obstructive pulmonary disease exacerbation. 2. Active smoking. 3. Hyponatremia. 4. Uncontrolled diabetes mellitus type 2 with hyperglycemia. 5. Hypertension. 6. Morbid obesity. PLAN: Patient was readmitted to the hospital after he was home 3 days because of COPD exacerbation. We have explored all the possible reasons for exacerbation and patient unfortunately continues to smoke 1 pack per day. Patient has been explained in depth that the reason why he keeps coming to the hospital for exacerbation of COPD is the smoking. Patient reports that he is unable to stop smoking. Patient has been informed on depth about the consequence of keep smoking. He acknowledged understanding. He has been recommended to try either Champix or Wellbutrin to try to stop smoking and he said that he will try after he is discharged. At this point will continue with breathing treatments and steroid that unfortunately is making his diabetes more complicated. Regarding diabetes we mentioned before is not well controlled so we are going to use Lantus 30 units while he is on IV steroids. Regarding hyponatremia will continue with the same management of IV fluids.
[2016-10-24] MEDS: LANTUS SUBQ SCH (17:30)
[2016-10-24] MEDS: DESYREL PO SCH (20:20)
[2016-10-25] MEDS: DUONEB (A & A) INH SCH ×7 (03:40→23:20)
[2016-10-25 05:25] LABS: ALLEN TEST YES; BE 1.3 mmoll (-3.0-3.0); BLOOD TYPE ARTERIAL; DRAW SITE R RADIAL; METHB 1.3 % (0.0-1.5); MODALITY CANNULA; O2(CT) 18.6 mL/dL (15.0-23.0); PCO2(98.6) 36 mmHg (35-45); PO2(98.6) 98 mmHg (60-100); SAMPLE BLOOD; SAO2 97.7 % (95.0-100.0); THB 13.8 g/dL (11.5-17.4); pH(98.6) 7.45 (7.35-7.45)
[2016-10-25] MEDS: HUMULIN R SUBQ SCH ×4 (06:24→22:47)
--- NOTE | 2016-10-25 06:37 | EKG Report ---
Test Performed on : 10/23/2016 7:31:10 PM Test Reason : CP/Re-Ordered Blood Pressure : / mmHG Vent. Rate : 078 BPM Atrial Rate : 078 BPM P-R Int : 136 ms QRS Dur : 084 ms QT Int : 380 ms P-R-T Axes : 041 -16 050 degrees QTc Int : 433 ms Normal sinus rhythm. with sinus arrhythmia. Low voltage QRS Septal infarct (cited on or before 19-JAN-2016) Abnormal ECG When compared with ECG of 16-OCT-2016 18:46, No significant change was found Unconfirmed Result
[2016-10-25] MEDS: LIPITOR PO SCH (09:05)
[2016-10-25] MEDS: SOLU-MEDROL IV SCH ×3 (09:05→17:55)
[2016-10-25] MEDS: LANTUS SUBQ SCH (09:05)
[2016-10-25] MEDS: LEXAPRO PO SCH (09:05)
[2016-10-25] MEDS: LASIX PO SCH (09:05)
[2016-10-25] MEDS: TOPAMAX PO SCH ×2 (09:05→22:45)
[2016-10-25] MEDS: NEURONTIN PO SCH ×3 (09:05→17:55)
[2016-10-25] MEDS: PRILOSEC PO SCH (09:05)
[2016-10-25] MEDS: ANTIVERT PO SCH ×2 (09:05→22:46)
[2016-10-25] MEDS: COREG PO SCH ×2 (09:05→22:46)
[2016-10-25 09:58] LABS: MANUAL DIFF NEEDED? NO
[2016-10-25 10:01] LABS: BASO% 0.1 % (0.0-0.8); EOS# 0.08 X1000 (0.0-0.7); EOS% 0.4 % (0.0-10.0); HEMATOCRIT 37.9 % (42.0-52.0); HEMOGLOBIN 13.2 g/dL (14.0-18.0); IMM GRAN# 0.08 X1000 (0.0-0.04); IMM GRAN% 0.4 % (0.0-0.5); LYMPH% 17.8 % (20.5-51.1); MCH 29.7 PG (27-31); MCHC 34.8 g/dL (33-37); MCV 85.2 FL (81-99); MONO# 1.22 X1000 (0.11-0.59); MONO% 6.8 % (1.7-9.3); MPV 9.3 FL (7.4-10.4); NEUT% 74.5 % (42.2-75.2); PLT 229 X1000 (130-400); RBC 4.45 XMIL (4.7-6.1)
--- NOTE | 2016-10-25 10:19 | PROGRESS NOTE ---
DATE: 10/25/2016 SUBJECTIVE: Patient reports breathing a little bit better in comparing with yesterday. Denies any fever or chills. OBJECTIVE: Vital Signs: Temperature 97.6 degrees, heart rate 64, respiratory rate 16, blood pressure 109/52, O2 saturation 98% on 5 L nasal cannula. General Examination: This is a chronically ill-looking and frail, 71-year-old, male, lying in bed, in no acute distress. HEENT: Head is normocephalic and atraumatic. Anicteric sclerae and pale conjunctivae. Mucous membranes moist. Neck: Supple. No JVD noted, although it is difficult to evaluate this because of the neck girth. No carotid bruits. No lymphadenopathy. No thyromegaly. Cardiovascular Examination: S1 and S2 heard. No murmurs, gallops, or rubs. Regular rate and rhythm. Respiratory Examination: Decreased breath sounds globally with some wheezing in both pulmonary bennett. The patient is not using any accessory muscles or having work of breathing. Abdomen: Soft, nontender to palpation. Bowel sounds present. No organomegaly. Extremities: No clubbing, cyanosis, or edema. Peripheral pulses present in both legs. Neurological Examination: Patient is alert and oriented x3. Able to move 4 extremities. Cranial nerves 2 -12 are grossly normal. Laboratory Data: Pending. ASSESSMENT: 1. Chronic obstructive pulmonary disease exacerbation. 2. Active smoking. 3. Hyponatremia. 4. Uncontrolled diabetes mellitus. 5. Acute respiratory failure. 6. Hypertension. 7. Morbid obesity. PLAN: The patient was admitted to the hospital after he was discharged 3 days ago because of COPD exacerbation. Patient continues to smoke. The patient has been in the hospital for last 2 days and is still requiring 5 L of oxygen. One concern could be a pulmonary embolism considering that he was discharged 3 days from the hospital and he was on room air. In any case , we prefer to check 1st a D-dimer and then we may need to proceed with a CT angiogram of the lungs. Patient currently is on DuoNeb every 4 hours. For optimizing medical treatment, we are going to add Spiriva and Advair to his current medications. We will see how he responds to these new medications. For diabetes mellitus, we have started Lantus 35 units. He was on Actos and also on glipizide. Will hold those medications for now. He is also on sliding scale insulin as well. For hypertension, we will continue with the same medications. Blood pressure is under control. Further recommendations to follow according to the clinical situation of the patient. MTDGene
[2016-10-25 10:26] LABS: AGAP 10; BUN 21 mg/dL (8-22); CALCIUM 8.3 mg/dL (8.8-10.2); CHLORIDE 99 mmol/L (98-107); COSMO 276; POTASSIUM 3.8 mmol/L (3.5-5.1); SODIUM 133 mmol/L (136-145); TCO2 24 mmol/L (25-35)
[2016-10-25] MEDS: ADVAIR 500/50 DISKUS INH SCH ×2 (11:11→19:55)
[2016-10-25] MEDS: SPIRIVA INH SCH (11:11)
--- NOTE | 2016-10-25 14:32 | Diag Imaging Result Document ---
PROCEDURE NAME: CT THORAX W/O CONTRAST - 10/25/2016 CT CHEST WITHOUT CONTRAST: COMPARISON: 05/21/2014. FINDINGS: There is mild subsegmental atelectasis at the lung bases and in the lingula. There are stable tiny air cysts scattered bilaterally suggesting minimal emphysema. There is probably trace pleural fluid bilaterally at the bases. The lungs are grossly clear otherwise. There is no definite pleural fluid collection. The heart is not enlarged. There is coronary artery atherosclerotic calcification and patchy aortic atherosclerotic calcification. There is no evidence of significant mediastinal or hilar lymphadenopathy. IMPRESSION: 1. Very minimal atelectasis at the lung bases and in the lingula and suggestion of trace basilar effusions. 2. Other incidental/nonacute findings detailed above.
[2016-10-25] MEDS: NORCO-5 PO PRN ×2 (14:44→22:44)
[2016-10-25] MEDS: DESYREL PO SCH (22:45)
[2016-10-26] MEDS: LEVAQUIN 500 MG/D5W 100 ML IV SCH (01:24)
[2016-10-26] MEDS: DUONEB (A & A) INH SCH ×3 (03:28→11:15)
[2016-10-26 06:09] LABS: MANUAL DIFF NEEDED? NO
[2016-10-26 06:15] LABS: BASO% 0.1 % (0.0-0.8); EOS# 0.01 X1000 (0.0-0.7); EOS% 0.1 % (0.0-10.0); HEMATOCRIT 36.7 % (42.0-52.0); HEMOGLOBIN 12.8 g/dL (14.0-18.0); IMM GRAN# 0.06 X1000 (0.0-0.04); IMM GRAN% 0.4 % (0.0-0.5); LYMPH# 1.78 X1000 (1.2-3.4); LYMPH% 12.9 % (20.5-51.1); MCH 29.6 PG (27-31); MCHC 34.9 g/dL (33-37); MONO# 0.76 X1000 (0.11-0.59); MONO% 5.5 % (1.7-9.3); MPV 9.7 FL (7.4-10.4); PLT 222 X1000 (130-400); RBC 4.32 XMIL (4.7-6.1)
[2016-10-26 06:28] LABS: AGAP 12; BUN 25 mg/dL (8-22); CALCIUM 8.8 mg/dL (8.8-10.2); CHLORIDE 98 mmol/L (98-107); COSMO 284; POTASSIUM 4.3 mmol/L (3.5-5.1); SODIUM 136 mmol/L (136-145); TCO2 26 mmol/L (25-35)
[2016-10-26] MEDS: HUMULIN R SUBQ SCH ×2 (06:49→14:18)
[2016-10-26] MEDS: ADVAIR 500/50 DISKUS INH SCH (07:27)
[2016-10-26] MEDS: SPIRIVA INH SCH (07:27)
[2016-10-26 07:49] VITALS: BP 136/71
[2016-10-26] MEDS: LIPITOR PO SCH (08:08)
[2016-10-26] MEDS: SOLU-MEDROL IV SCH ×2 (08:08→14:18)
[2016-10-26] MEDS: TOPAMAX PO SCH (08:08)
[2016-10-26] MEDS: LEXAPRO PO SCH (08:08)
[2016-10-26] MEDS: PRILOSEC PO SCH (08:09)
[2016-10-26] MEDS: ANTIVERT PO SCH (08:09)
[2016-10-26] MEDS: NEURONTIN PO SCH ×2 (08:09→14:18)
[2016-10-26] MEDS: LANTUS SUBQ SCH (08:09)
[2016-10-26] MEDS: COREG PO SCH (08:09)
[2016-10-26] MEDS: NORCO-5 PO PRN ×2 (08:10→14:23)
[2016-10-26] MEDS: LASIX PO SCH (08:10)
--- NOTE | 2016-10-26 20:21 | PALLIATIVE CARE CONSULTATION ---
DATE: 10/26/2016 REQUESTING PHYSICIAN: Ashleigh Carter. REASON FOR CONSULTATION: Goals of care. HISTORY OF PRESENT ILLNESS: This is a 71-year-old male with past medical history of diabetes mellitus type 2, COPD, hypertension, sleep apnea, hyperlipidemia, right loogb-tva-zajj amputation, chronic back pain, gastroesophageal reflux disease, peripheral vascular disease and depression. He was most recently admitted on 10/23/2016 only after being discharged from the hospital for 3 days. He presented with complaints of progressive shortness of breath and increased edema. His prior admission was for the same symptoms. Currently he is sitting up in the hospital bed. He has no acute complaints. He states that he is much improved since admission. He does not have any family at bedside. The palliative care team has been consulted to assist with goals of care. REVIEW OF SYSTEMS: Twelve point review of systems has been conducted and otherwise negative except those mentioned in the HPI. PAST MEDICAL HISTORY: See HPI. PAST SURGICAL HISTORY: 1. Cholecystectomy. 2. Appendectomy. 3. Tonsillectomy. 4. Multiple back surgeries. 5. Right raynh-wqp-yubr amputation. SOCIAL HISTORY: Prior to this admission he lived alone. He is not . He has 2 children but they are estranged. He is a every day smoker. He denies alcohol or drug use. FAMILY HISTORY: Positive for heart disease. PHYSICAL EXAMINATION: General: This is an obese 71-year-old male who does not appear to be in any acute distress at this time. HEENT: Atraumatic, normocephalic. Neck: Supple. Cardiovascular: Normal S1, S2. Pulmonary: Lung sounds are diminished. Respirations are nonlabored. Abdomen: Soft. Bowel sounds are active. Extremity: Upper extremity pulses are palpable. Left lower extremity pulses palpable. Skin: Warm and dry. Neuro: Alert and oriented times person, place and time. IMPRESSION: This is a 71-year-old male with a past medical history as listed above in the history of present illness. I met with Mr. Hutton to discuss his goals of care. He states plan is to discharge home. He states he is much improved since date of admission. As previously mentioned, he does not have any acute complaints at this time. We did discuss power of city attorney and advanced directive. He states that he has a friend that he has confided in with all of his end of life wishes. However nothing is documented. An advanced directive and jlulj-ne-wprsxtzs form will be given a Mr. Hutton to complete. Currently Mr. Hutton's palliative performance scale appears to be 60%. The palliative care team will continue to follow as needed. Thank you for this consultation. Dictated by TAVO Romero for Lamberto Bolivar MD
[2016-10-26] MEDS ORDERED: GLUCOPHAGE XR PO SCH (21:00)
[2016-10-27] MEDS ORDERED: ACTOS PO SCH (09:00)
--- NOTE | 2016-10-27 14:11 | DISCHARGE SUMMARY ---
ADMISSION DATE: 10/23/2016 DISCHARGE DATE: 10/26/2016 CONSULTATIONS: None pertinent. PROCEDURES: Chest CT showed very minimal atelectasis at the lung bases and in the lingula and just trace basilar effusions. DISCHARGE DIAGNOSES: 1. Chronic obstructive pulmonary disease exacerbation improved. 2. Active smoking. Patient has been educated on smoking cessation as well as the means to quit. 3. Hyponatremia resolved. 4. Uncontrolled diabetes mellitus. Continue medications. 5. Acute respiratory failure resolved. 6. Hypertension. Continue medications. 7. Morbid obesity. Patient has been counseled for diet as well as exercise education. HOSPITAL COURSE: Mr. Hutton is a 71-year-old male, who has a history of COPD, who continues to smoke, diabetes mellitus type 2, hypertension. Patient was recently discharged from the hospital 3 days prior to his admission because of his COPD exacerbation and his continuation to smoke. The patient has been in the hospital for the last 2 days still requiring 5 L of oxygen. Previously before he had not had to be on any home O2. A CT of the chest was done for concern of pulmonary embolism. It did not show any PE just showed bibasilar atelectasis. The patient throughout his hospital stay has been on DuoNeb and added Spiriva and Advair to his current medication. Clinically the patient did improve. His work of breathing improved. The patient is going to be discharged with home health services as well as home O2. The patient is being discharged back with his regular home health, [facility]. VITAL SIGNS: Temperature is 98.7 degrees, heart rate 69, respirations 16, blood pressure is 136/71, O2 is 98% on 2 L nasal cannula. Palliative care was also brought in to speak with the patient today about his comorbidities with his COPD. DISCHARGE DIET: Diabetic. DISCHARGE MEDICATIONS: Please see MAR as per Dr. Alexander. FOLLOWUP: Patient is being discharged home with home health with [facility] as well as home O2. He will need to follow up with his primary care physician, Dr. Ben Camara in 1-2 weeks. Patient can return to the ED for any worsening of symptoms. Discharge time 30 minutes. Dictated by TAVO Brooks for Ceferino Gaytan MD
== END 2016-10-26 16:01 | disposition home health service (06) | DRG 189 ==
LOC: EDBD → ED 19:27 → 3S 22:25 → 4N 10-25 15:23
PROVIDERS: ATTEND Internal Medicine
DX: J96.00 Acute respiratory failure, unspecified whether with hypoxia or hypercapnia (principal); E11.65 Type 2 diabetes mellitus with hyperglycemia; J44.1 Chronic obstructive pulmonary disease with (acute) exacerbation; E87.1 Hypo-osmolality and hyponatremia; I10 Essential (primary) hypertension; Z68.36 Body mass index [BMI] 36.0-36.9, adult; G47.30 Sleep apnea, unspecified; E66.01 Morbid (severe) obesity due to excess calories; Z96.653 Presence of artificial knee joint, bilateral; Z89.511 Acquired absence of right leg below knee; Z98.1 Arthrodesis status; F17.210 Nicotine dependence, cigarettes, uncomplicated
CPT/HCPCS: 36415; 71010; 71250; 80048; 80053; 82550; 82805; 82948; 83036; 83605; 83735; 83880; 84484; 85025; 85379; 85610; 85730; 93005; 94640; 94660; 94761; 94762; 94799; 96365; 96375; J0696; J2405; J2920; J2930; J7040

== ENCOUNTER 2016-12-06 20:14 | Inpatient (IN) ==
[2016-12-06] MEDS ORDERED: ASPIRIN PO STA (20:17)
[2016-12-06] MEDS ORDERED: DUONEB (A & A) INH ONE (20:23)
[2016-12-06] MEDS ORDERED: SOLU-MEDROL IV ONE (20:23)
--- NOTE | 2016-12-06 20:27 | PROVIDER DOCUMENTATION ---
HPI-Respiratory General - General Chief Complaint: Shortness of Breath Stated Complaint: sob Time Seen by Provider: 12/06/16 20:22 Source: patient (Patient is a 71 year old white male with history of COPD, diabetes, recent pneumonia, and tobacco abuse who presents by EMS complaining of increasing sob, productive clear cough, and pleuritic chest pain since yesterday.) Allergies/Adverse Reactions: Patient Allergies Allergy/AdvReac Type Severity Reaction Status Date / Time codeine AdvReac NAUSEA Verified 12/06/16 20:30 vancomycin AdvReac NAUSEA/VOMI Verified 12/06/16 20:30 TING Home Medications: Home Medication List Medication Instructions Recorded Confirmed Last Taken Type Carvedilol [Coreg] 3.125 mg PO BID 08/24/12 12/06/16 12/06/16 08:00 History Pioglitazone HCl [Actos] 45 mg PO DAILY 08/24/12 12/06/16 12/06/16 08:00 History Gabapentin [Neurontin] 400 mg PO TID 07/28/14 12/06/16 12/06/16 18:00 History Furosemide [Lasix] 40 mg PO DAILY 08/08/14 12/06/16 12/06/16 08:00 History Omeprazole [Prilosec] 20 mg PO DAILY 06/24/15 12/06/16 12/06/16 08:00 History Potassium Chloride 1 tab PO DAILY 06/24/15 12/06/16 12/06/16 08:00 History Metformin HCl [Fortamet] 1 tab PO BID 10/18/15 12/06/16 12/06/16 08:00 History Topiramate [Topamax] 25 mg PO BID 10/18/15 12/06/16 12/06/16 15:00 History Glipizide [Glucotrol] 5 mg PO BID 01/19/16 12/06/16 12/06/16 08:00 History Atorvastatin Calcium [Lipitor] 1 tab PO DAILY 10/16/16 12/06/16 12/05/16 20:00 History Prednisone 10 mg PO DIRECTED 10/16/16 12/06/16 10/23/16 History Trazodone HCl 2 tab PO QHS 10/16/16 12/06/16 12/05/16 20:30 History Docusate Sodium 1 tab PO PRN PRN 10/23/16 12/06/16 12/06/16 08:00 History Escitalopram Oxalate [Lexapro] 1 tab PO DAILY 10/23/16 12/06/16 12/06/16 08:00 History Meclizine HCl [Antivert] 1 tab PO BID 10/23/16 12/06/16 12/06/16 18:00 History Oxycodone HCl/Acetaminophen 0.5 - 1 tab PO Q4H PRN PRN 10/23/16 12/06/16 08:00 History [Oxycodone-Acetaminophen 10-325] Albuterol 2.5MG/Ipratrop 0.5MG 3 ml INH Q4H PRN #10 neb 10/26/16 12/06/16 19:30 Rx [Duoneb (A & A)] Fluticasone/Salmet 500/50 INH 1 puff INH RTBID #1 inhaler 10/26/16 12/06/16 19:30 Rx [Advair 500/50 Diskus] Tiotropium Waterfall [Spiriva 4 gm IH DAILY #1 mist.inhal 10/26/16 12/06/16 19:30 Rx Respimat] Review of Systems - Adult - REVIEW OF SYSTEMS - ADULT Constitutional: reports: see HPI Past History - Adult - PAST MEDICAL HISTORY-ADULT Review of Records: reports: Old Records Reviewed, Nursing Assessment Review, Medications Reviewed Major Childhood Illnesses: reports: denies history Cardiovascular: reports: HTN Respiratory: reports: COPD, sleep apnea Musculoskeletal: reports: intervertebral disc disease Endocrine/Immune: reports: Diabetes - PRIOR SURGERIES/PROCEDURES Surgical/Procedure History: reports: appendectomy, cholecystectomy, tonsillectomy, joint replacement (bilateral knees x 3), back/neck, other ( cataract surgery; right bka) - IMMUNIZATION STATUS Childhood Immunizations: See Nurse Assessment Flu Vaccine: See Nurse Assessment - FAMILY HISTORY Family History: reviewed, not pertinent Physical Exam-General - CONSTITUTIONAL General Appearance: alert, moderate distress, obese Progress - PLAN OF CARE/RESULTS Progress/Plan/Lab Results: Vital Signs - 8 hr 12/06/16 20:11 12/06/16 20:24 12/06/16 20:25 Temperature 98.3 F 98.3 F Pulse Rate 68 69 70 Respiratory Rate 22 21 16 Blood Pressure 121/70 121/70 O2 Sat by Pulse Oximetry 99 98 Laboratory Results - last 24 hr 12/06/16 12/06/16 12/06/16 20:19 20:19 20:19 WBC 9.63 RBC 4.68 L Hgb 14.2 Hct 41.0 L MCV 87.6 MCH 30.3 MCHC 34.6 RDW Std Deviation 17.1 H Plt Count 228 MPV 9.7 Immature Gran % (Auto) 0.2 Neut % (Auto) 65.0 Lymph % (Auto) 25.9 Traverse % (Auto) 5.8 Eos % (Auto) 2.7 Baso % (Auto) 0.4 Immature Gran # (Auto) 0.02 Neut # (Auto) 6.26 Lymph # (Auto) 2.49 Traverse # (Auto) 0.56 Eos # (Auto) 0.26 Baso # (Auto) 0.04 PT INR PTT (Actin FS) D-Dimer 0.51 H Sodium 135 L Potassium 3.6 Chloride 98 Carbon Dioxide 20 L Anion Gap 17 BUN 16 Creatinine 0.9 Estimated GFR/1.73 m2 > 60 BUN/Creatinine Ratio 18 Glucose 108 H Calculated Osmolality 272 Calcium 9.5 Magnesium 1.6 Total Bilirubin 0.37 AST 23 ALT 24 Alkaline Phosphatase 125 H Creatine Kinase 43 Troponin T Acp-S-Rnerbhepojs Pept Total Protein 7.4 Albumin 4.0 Globulin 3.4 Albumin/Globulin Ratio 1.2 Plasma Lactate 12/06/16 12/06/16 12/06/16 20:19 20:19 20:19 WBC RBC Hgb Hct MCV MCH MCHC RDW Std Deviation Plt Count MPV Immature Gran % (Auto) Neut % (Auto) Lymph % (Auto) Traverse % (Auto) Eos % (Auto) Baso % (Auto) Immature Gran # (Auto) Neut # (Auto) Lymph # (Auto) Traverse # (Auto) Eos # (Auto) Baso # (Auto) PT 10.9 INR 1.04 PTT (Actin FS) 31.4 D-Dimer Sodium Potassium Chloride Carbon Dioxide Anion Gap BUN Creatinine Estimated GFR/1.73 m2 BUN/Creatinine Ratio Glucose Calculated Osmolality Calcium Magnesium Total Bilirubin AST ALT Alkaline Phosphatase Creatine Kinase Troponin T < 0.010 Fiu-F-Askzsuftnrn Pept 771 H Total Protein Albumin Globulin Albumin/Globulin Ratio Plasma Lactate 12/06/16 20:19 WBC RBC Hgb Hct MCV MCH MCHC RDW Std Deviation Plt Count MPV Immature Gran % (Auto) Neut % (Auto) Lymph % (Auto) Traverse % (Auto) Eos % (Auto) Baso % (Auto) Immature Gran # (Auto) Neut # (Auto) Lymph # (Auto) Traverse # (Auto) Eos # (Auto) Baso # (Auto) PT INR PTT (Actin FS) D-Dimer Sodium Potassium Chloride Carbon Dioxide Anion Gap BUN Creatinine Estimated GFR/1.73 m2 BUN/Creatinine Ratio Glucose Calculated Osmolality Calcium Magnesium Total Bilirubin AST ALT Alkaline Phosphatase Creatine Kinase Troponin T Tcx-F-Qcktbovzeci Pept Total Protein Albumin Globulin Albumin/Globulin Ratio Plasma Lactate 2.3 H Orders Category Date Time Status Cardiac Monitoring DIRECTED Care 12/06/16 20:18 Active Shelby Cath Insertion ORDERED Care 12/06/16 21:20 Active Intake and Output-Strict ORDERED Care 12/06/16 21:20 Active Oxygen Therapy- ED Nursing DIRECTED Care 12/06/16 20:18 Active Repeat Vital Signs .Blood Pressure Care 12/06/16 21:20 Active Repeat Vital Signs .Heart Rate Care 12/06/16 21:20 Active Repeat Vital Signs .Oxygen Saturation Care 12/06/16 21:20 Active Repeat Vital Signs .Respiratory Rate Care 12/06/16 21:20 Active Repeat Vital Signs .Temp Care 12/06/16 21:20 Active Saline Loc NOW Care 12/06/16 20:18 Active CHEST-PORTABLE [RAD] Stat Exams 12/06/16 20:18 Taken BLOOD CULTURE [BLDCUL] Stat Lab 12/06/16 20:19 Results CBC WITH ELECTRONIC DIFF [HEME] Stat Lab 12/06/16 20:19 Completed CK PROFILE [SP CHEM] Stat Lab 12/06/16 20:19 Completed COMPREHENSIVE METABOLIC PANEL [CHEM] Stat Lab 12/06/16 20:19 Completed D-DIMER [CHEM] Stat Lab 12/06/16 20:19 Completed LACTATE, PLASMA [CHEM] Stat Lab 12/06/16 20:19 Completed MAGNESIUM [CHEM] Stat Lab 12/06/16 20:19 Completed PRO B-NATRIURETIC PEPTIDE Stat Lab 12/06/16 20:19 Completed PROTIME WITH INR [COAG] Stat Lab 12/06/16 20:19 Completed PTT [COAG] Stat Lab 12/06/16 20:19 Completed TROPONIN T Stat Lab 12/06/16 20:[address] W/POSS RFLX CULT [URINALYSIS] Stat Lab 12/06/16 21:41 Ordered 0.9% Sodium Chloride Inj [Ns] 1,000 ml Med 12/06/16 21:19 Discontinued IV As Directed 0.9% Sodium Chloride Inj [Ns] 500 ml Med 12/06/16 21:19 Active IV 999 mls/hr Albuterol 2.5MG/Ipratrop 0.5MG [Duoneb (A & A)] Med 12/06/16 20:23 Discontinued 3 ml INH NOW ONE Aspirin Med 12/06/16 20:17 Discontinued 325 mg PO STAT STA Methylprednisolone Sod Succ [Solu-Medrol] Med 12/06/16 20:23 Discontinued 125 mg IV NOW ONE Piperacil/Tazobact 3.375 gm/Ns [Zosyn 3.375 gm/Ns] Med 12/06/16 21:19 Active 3.375 gm in 50 ml IV NOW Aerosol Treatments Routine Oth 12/06/16 20:23 Completed Aerosol Treatments Stat Oth 12/06/16 20:23 Completed EKG [EKG] Stat Ther 12/06/16 20:17 Ordered EKG [EKG] Stat Ther 12/06/16 20:18 Ordered Result Diagrams: 12/06/16 20:19 12/06/16 20:19 Departure - Departure Time of Disposition Decision: 21:40 DIAGNOSIS: COPD exacerbation RLL pneumonia Qualifiers: Pneumonia type: due to unspecified organism Qualified Code(s): J18.1 - Lobar pneumonia, unspecified organism Diabetes Qualifiers: Diabetes mellitus type: type 2 Diabetes mellitus complication status: with unspecified complications Diabetes mellitus oil heaterman insulin use: unspecified senior living insulin use status Qualified Code(s): E11.8 - Type 2 diabetes mellitus with unspecified complications Disposition: ADMITTED INPATIENT 09 Certified Medical Emergency: Emergent Condition: Stable - Critical Care Note This patient required my direct personal management.: Yes
[2016-12-06 20:32] LABS: MANUAL DIFF NEEDED? NO
[2016-12-06 20:44] LABS: BASO% 0.4 % (0.0-0.8); EOS# 0.26 X1000 (0.0-0.7); EOS% 2.7 % (0.0-10.0); HEMOGLOBIN 14.2 g/dL (14.0-18.0); IMM GRAN# 0.02 X1000 (0.0-0.04); IMM GRAN% 0.2 % (0.0-0.5); LYMPH# 2.49 X1000 (1.2-3.4); LYMPH% 25.9 % (20.5-51.1); MCH 30.3 PG (27-31); MCHC 34.6 g/dL (33-37); MCV 87.6 FL (81-99); MONO# 0.56 X1000 (0.11-0.59); MONO% 5.8 % (1.7-9.3); MPV 9.7 FL (7.4-10.4); PLT 228 X1000 (130-400); RBC 4.68 XMIL (4.7-6.1)
[2016-12-06 20:53] LABS: INR 1.04; PROTIME 10.9 Seconds (9.2-11.7); PTT 31.4 Seconds (22.0-36.0)
[2016-12-06] MEDS ORDERED: NS 1,000 ML IV ONE (21:19)
[2016-12-06] MEDS: NS 500 ML IV ONE ×2 (21:19)
[2016-12-06] MEDS ORDERED: ZOSYN 3.375 GM/NS 3.375 GM/50 ML IVPB IV ONE (21:19)
[2016-12-06 21:29] LABS: AGAP 17; ALKALINE PHOSPHATASE 125 U/L (32-122); BUN 16 mg/dL (8-22); CALCIUM 9.5 mg/dL (8.8-10.2); CHLORIDE 98 mmol/L (98-107); CK PROFILE 43 U/L (24-204); COSMO 272; GOT 23 U/L (10-34); GPT 24 U/L (10-44); MAGNESIUM 1.6 mg/dL (1.5-2.7); POTASSIUM 3.6 mmol/L (3.5-5.1); SODIUM 135 mmol/L (136-145); TCO2 20 mmol/L (25-35); TOTAL BILIRUBIN 0.37 mg/dL (0.20-1.00); TOTAL PROTEIN 7.4 g/dL (6.3-8.3)
[2016-12-06 21:46] LABS: URINE MICRO REVIEW NEEDED? NO; URINE SOURCE CATH
--- NOTE | 2016-12-06 21:47 | PROVIDER DOCUMENTATION ---
This chart was entered by Philip Jenkins Scribe, acting as scribe for Roni Maldonado MD. HPI-Respiratory General - General Chief Complaint: Shortness of Breath Stated Complaint: sob Time Seen by Provider: 12/06/16 20:22 Source: patient, EMS Allergies/Adverse Reactions: Patient Allergies Allergy/AdvReac Type Severity Reaction Status Date / Time codeine AdvReac NAUSEA Verified 12/06/16 20:30 vancomycin AdvReac NAUSEA/VOMI Verified 12/06/16 20:30 TING Home Medications: Home Medication List Medication Instructions Recorded Confirmed Last Taken Type Carvedilol [Coreg] 3.125 mg PO BID 08/24/12 12/06/16 12/06/16 08:00 History Pioglitazone HCl [Actos] 45 mg PO DAILY 08/24/12 12/06/16 12/06/16 08:00 History Gabapentin [Neurontin] 400 mg PO TID 07/28/14 12/06/16 12/06/16 18:00 History Furosemide [Lasix] 40 mg PO DAILY 08/08/14 12/06/16 12/06/16 08:00 History Omeprazole [Prilosec] 20 mg PO DAILY 06/24/15 12/06/16 12/06/16 08:00 History Potassium Chloride 1 tab PO DAILY 06/24/15 12/06/16 12/06/16 08:00 History Metformin HCl [Fortamet] 1 tab PO BID 10/18/15 12/06/16 12/06/16 08:00 History Topiramate [Topamax] 25 mg PO BID 10/18/15 12/06/16 12/06/16 15:00 History Glipizide [Glucotrol] 5 mg PO BID 01/19/16 12/06/16 12/06/16 08:00 History Atorvastatin Calcium [Lipitor] 1 tab PO DAILY 10/16/16 12/06/16 12/05/16 20:00 History Prednisone 10 mg PO DIRECTED 10/16/16 12/06/16 10/23/16 History Trazodone HCl 2 tab PO QHS 10/16/16 12/06/16 12/05/16 20:30 History Docusate Sodium 1 tab PO PRN PRN 10/23/16 12/06/16 12/06/16 08:00 History Escitalopram Oxalate [Lexapro] 1 tab PO DAILY 10/23/16 12/06/16 12/06/16 08:00 History Meclizine HCl [Antivert] 1 tab PO BID 10/23/16 12/06/16 12/06/16 18:00 History Oxycodone HCl/Acetaminophen 0.5 - 1 tab PO Q4H PRN PRN 10/23/16 12/06/16 08:00 History [Oxycodone-Acetaminophen 10-325] Albuterol 2.5MG/Ipratrop 0.5MG 3 ml INH Q4H PRN #10 neb 10/26/16 12/06/16 19:30 Rx [Duoneb (A & A)] Fluticasone/Salmet 500/50 INH 1 puff INH RTBID #1 inhaler 10/26/16 12/06/16 19:30 Rx [Advair 500/50 Diskus] Tiotropium [place] [Spiriva 4 gm IH DAILY #1 mist.inhal 10/26/16 12/06/16 19:30 Rx Respimat] - History of Present Illness-Resp Nature of Presenting Problem: Pt is a 71 yom who presents to ER via EMS with CC of increasing shortness of breath since yesterday. Pt was seen 1.5 weeks ago for PNADonny Donovan, pt complains of dyspnea on L lung, subjective F/chills, and a clear-sputum productive cough. Pt has hx of COPD and smokes .5-1 ppd. Quality of Pain: reports: other (shortness of breath) Severity in ED: reports: moderate Onset/Duration: reports: last night Timing: reports: still present, getting worse Cough Quality/Degree: reports: moderate, productive cough, sputum (clear) Associated Symptoms: reports: chest pain/soreness (L lateral on exertion), cough , fever/chills, shortness of breath, short of breath. denies: headache, heart racing, sinus pain, sore throat, sweaty, wheezing Similar Symptoms Previously?: Yes Recently seen or treated by another doctor?: Yes Review of Systems - Adult - REVIEW OF SYSTEMS - ADULT Constitutional: reports: chills, fever, fatique. denies: night sweats, weight gain, weight loss Eyes: reports: no symptoms reported Ears, Nose, Mouth & Throat: reports: no symptoms reported Cardiovascular: denies: chest pain, edema, heart murmur, irregular heart rate, orthopnea, palpitations, poor circulation, PND, syncope Respiratory: reports: chronic cough, cough, dyspnea on exertion, shortness of breath. denies: excessive sputum production, hemoptysis, pleurisy, wheezing Gastrointestinal: reports: no symptoms reported Genitourinary: reports: no symptoms reported Musculoskeletal: reports: no symptoms reported Integumentary: reports: no symptoms reported Neurological: reports: no symptoms reported Psychiatric: reports: no symptoms reported Endocrine: reports: no symptoms reported Hematologic/Lymphatic: reports: no symptoms reported Allergic/Immunologic: reports: no symptoms reported All Other Systems: Reviewed and Negative Past History - Adult - PAST MEDICAL HISTORY-ADULT Review of Records: reports: Nursing Assessment Review, Medications Reviewed Cardiovascular: reports: HTN Respiratory: reports: COPD, sleep apnea Musculoskeletal: reports: intervertebral disc disease Endocrine/Immune: reports: Diabetes - PRIOR SURGERIES/PROCEDURES Surgical/Procedure History: reports: appendectomy, cholecystectomy, tonsillectomy, joint replacement (bilateral knees x 3), back/neck, other ( cataract surgery; right bka) - IMMUNIZATION STATUS Childhood Immunizations: See Nurse Assessment Flu Vaccine: See Nurse Assessment - FAMILY HISTORY Family History: reviewed, not pertinent Physical Exam-General - PHYSICAL EXAM-ADULT Initial Vital Signs Reviewed: Yes - CONSTITUTIONAL General Appearance: appears well, alert, mild distress. negative: no apparent distress - EYES Eyes: PERRL/EOMI, pink conjunctivae, fundi clear, no AV nicking - HEAD, EARS, NOSE, MOUTH & THROAT HENMT: normocephalic/atraumatic, moist mucous membranes, normal ENT inspection, TMs normal, pharynx normal. negative: pharyngeal erythema, tonsillar exudate, TM abnormal - NECK Neck: non-tender, full range of motion, supple, normal inspection. negative: C- spine tenderness, limited range of motion, lymphadenopathy - RESPIRATORY Respiratory: chest non-tender, lungs clear, no accessory muscle use, respiratory distress, decreased breath sounds (bilateral, more prominent on L side), rhonchi. negative: normal breath sounds, no pleuratic chest pain, no respiratory distress - CARDIOVASCULAR Cardiovascular: normal peripheral pulses, regular rate, rhythm. negative: bradycardia, tachycardia, irregularly irregular - GASTROINTESTINAL (ABDOMEN) Abdominal Exam: normal bowel sounds, non tender, soft, no organomegaly, no pulsatile mass. negative: guarding, rebound, tenderness - MUSCULOSKELETAL Back Exam: normal inspection, no CVA tenderness, no vertebral tenderness. negative: CVA tenderness, decreased range of motion, ecchymosis, muscle spasm, swelling, vertebral tenderness Extremity: normal range of motion, non-tender, normal gait, normal inspection, no pedal edema, no calf tenderness, normal capillary refill, other (RLE amputation). negative: deformity, erythema, inflammation, swelling, tenderness - SKIN Integumentary: normal color, normal turgor, warm/dry. negative: abrasion(s), diaphoresis, ecchymosis, erythema, laceration(s), swelling, tenderness, warm - NEUROLOGIC Neurologic: redipper II-XII nml as tested, grossly normal, no motor/sensory deficits . negative: facial droop, focal weakness, motor weakness, sensory deficit - PSYCHIATRIC Psych/Mental Status: normal thought content, normal thought process, oriented x 3, depressed affect. negative: normal mood/affect Progress - PLAN OF CARE/RESULTS Progress/Plan/Lab Results: Vital Signs - 8 hr 12/06/16 20:11 12/06/16 20:24 12/06/16 20:25 Temperature 98.3 F 98.3 F Pulse Rate 68 69 70 Respiratory Rate 22 21 16 Blood Pressure 121/70 121/70 O2 Sat by Pulse Oximetry 99 98 Laboratory Results - last 24 hr 12/06/16 12/06/16 12/06/16 20:19 20:19 20:19 WBC 9.63 RBC 4.68 L Hgb 14.2 Hct 41.0 L MCV 87.6 MCH 30.3 MCHC 34.6 RDW Std Deviation 17.1 H Plt Count 228 MPV 9.7 Immature Gran % (Auto) 0.2 Neut % (Auto) 65.0 Lymph % (Auto) 25.9 Edwards % (Auto) 5.8 Eos % (Auto) 2.7 Baso % (Auto) 0.4 Immature Gran # (Auto) 0.02 Neut # (Auto) 6.26 Lymph # (Auto) 2.49 Edwards # (Auto) 0.56 Eos # (Auto) 0.26 Baso # (Auto) 0.04 PT INR PTT (Actin FS) D-Dimer 0.51 H Sodium 135 L Potassium 3.6 Chloride 98 Carbon Dioxide 20 L Anion Gap 17 BUN 16 Creatinine 0.9 Estimated GFR/1.73 m2 > 60 BUN/Creatinine Ratio 18 Glucose 108 H Calculated Osmolality 272 Calcium 9.5 Magnesium 1.6 Total Bilirubin 0.37 AST 23 ALT 24 Alkaline Phosphatase 125 H Creatine Kinase 43 Troponin T Ngj-D-Rftkuwjmdyt Pept Total Protein 7.4 Albumin 4.0 Globulin 3.4 Albumin/Globulin Ratio 1.2 Plasma Lactate 12/06/16 12/06/16 12/06/16 20:19 20:19 20:19 WBC RBC Hgb Hct MCV MCH MCHC RDW Std Deviation Plt Count MPV Immature Gran % (Auto) Neut % (Auto) Lymph % (Auto) Edwards % (Auto) Eos % (Auto) Baso % (Auto) Immature Gran # (Auto) Neut # (Auto) Lymph # (Auto) Edwards # (Auto) Eos # (Auto) Baso # (Auto) PT 10.9 INR 1.04 PTT (Actin FS) 31.4 D-Dimer Sodium Potassium Chloride Carbon Dioxide Anion Gap BUN Creatinine Estimated GFR/1.73 m2 BUN/Creatinine Ratio Glucose Calculated Osmolality Calcium Magnesium Total Bilirubin AST ALT Alkaline Phosphatase Creatine Kinase Troponin T < 0.010 Mfk-H-Rjkonsngagw Pept 771 H Total Protein Albumin Globulin Albumin/Globulin Ratio Plasma Lactate 12/06/16 20:19 WBC RBC Hgb Hct MCV MCH MCHC RDW Std Deviation Plt Count MPV Immature Gran % (Auto) Neut % (Auto) Lymph % (Auto) Edwards % (Auto) Eos % (Auto) Baso % (Auto) Immature Gran # (Auto) Neut # (Auto) Lymph # (Auto) Edwards # (Auto) Eos # (Auto) Baso # (Auto) PT INR PTT (Actin FS) D-Dimer Sodium Potassium Chloride Carbon Dioxide Anion Gap BUN Creatinine Estimated GFR/1.73 m2 BUN/Creatinine Ratio Glucose Calculated Osmolality Calcium Magnesium Total Bilirubin AST ALT Alkaline Phosphatase Creatine Kinase Troponin T Git-B-Srjvwjudluv Pept Total Protein Albumin Globulin Albumin/Globulin Ratio Plasma Lactate 2.3 H Orders Category Date Time Status Cardiac Monitoring DIRECTED Care 12/06/16 20:18 Active Shelby Cath Insertion ORDERED Care 12/06/16 21:20 Active Intake and Output-Strict ORDERED Care 12/06/16 21:20 Active Oxygen Therapy- ED Nursing DIRECTED Care 12/06/16 20:18 Active Repeat Vital Signs .Blood Pressure Care 12/06/16 21:20 Active Repeat Vital Signs .Heart Rate Care 12/06/16 21:20 Active Repeat Vital Signs .Oxygen Saturation Care 12/06/16 21:20 Active Repeat Vital Signs .Respiratory Rate Care 12/06/16 21:20 Active Repeat Vital Signs .Temp Care 12/06/16 21:20 Active Saline Loc NOW Care 12/06/16 20:18 Active CHEST-PORTABLE [RAD] Stat Exams 12/06/16 20:18 Taken BLOOD CULTURE [BLDCUL] Stat Lab 12/06/16 20:19 Results CBC WITH ELECTRONIC DIFF [HEME] Stat Lab 12/06/16 20:19 Completed CK PROFILE [SP CHEM] Stat Lab 12/06/16 20:19 Completed COMPREHENSIVE METABOLIC PANEL [CHEM] Stat Lab 12/06/16 20:19 Completed D-DIMER [CHEM] Stat Lab 12/06/16 20:19 Completed LACTATE, PLASMA [CHEM] Stat Lab 12/06/16 20:19 Completed MAGNESIUM [CHEM] Stat Lab 12/06/16 20:19 Completed PRO B-NATRIURETIC PEPTIDE Stat Lab 12/06/16 20:19 Completed PROTIME WITH INR [COAG] Stat Lab 12/06/16 20:19 Completed PTT [COAG] Stat Lab 12/06/16 20:19 Completed TROPONIN T Stat Lab 12/06/16 20:19 Completed URINALYSIS W/POSS RFLX CULT-1 [URINALYSIS] Routine Lab 12/06/16 21:35 Received 0.9% Sodium Chloride Inj [Ns] 1,000 ml Med 12/06/16 21:19 Discontinued IV As Directed 0.9% Sodium Chloride Inj [Ns] 500 ml Med 12/06/16 21:19 Active IV 999 mls/hr Albuterol 2.5MG/Ipratrop 0.5MG [Duoneb (A & A)] Med 12/06/16 20:23 Discontinued 3 ml INH NOW ONE Aspirin Med 12/06/16 20:17 Discontinued 325 mg PO STAT STA Methylprednisolone Sod Succ [Solu-Medrol] Med 12/06/16 20:23 Discontinued 125 mg IV NOW ONE Piperacil/Tazobact 3.375 gm/Ns [Zosyn 3.375 gm/Ns] Med 12/06/16 21:19 Active 3.375 gm in 50 ml IV NOW Aerosol Treatments Routine Oth 12/06/16 20:23 Completed Aerosol Treatments Stat Oth 12/06/16 20:23 Completed EKG [EKG] Stat Ther 12/06/16 20:17 Ordered EKG [EKG] Stat Ther 12/06/16 20:18 Ordered Result Diagrams: 12/06/16 20:19 12/06/16 20:19 - EKG 1 Time of EKG reading by physician:: 20:24 EKG Read and Signed by:: Roni Maldonado EKG Interpretation (*Must complete 3 of following elements*): Abnormal (L axis deviation; Low voltage QRS; Septal infarct, age undetermined.) Rate: 67 Rhythm: Sinus rhythm with fusion complexes - XRAY 1 XRAY: Bilateral XRAY Study: Chest Impression: See EMR Report XRAY Interpretation: R lung infiltrate - ER Preliminary - CONSULTS/PCP/HOSPITALIST Notification #1 *Consult/PCP/Hospitalist*: Dr. 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 Qualified Code(s): E11.8 - Type 2 diabetes mellitus with unspecified complications PNA (pneumonia) Qualifiers: Pneumonia type: due to unspecified organism Laterality: right Lung location: lower lobe of lung Qualified Code(s): J18.1 - Lobar pneumonia, unspecified organism Disposition: ADMITTED INPATIENT 09 Certified Medical Emergency: Emergent Condition: Stable - Critical Care Note This patient required my direct personal management.: Yes This chart was documented by the indicated scribe, (Philip Jenkins Scribe) and accurately reflects the services I performed and decisions made by me, Roni Maldonado MD, as attested by the provider's signature.
[2016-12-06 21:54] LABS: BILIRUBIN URINE NEGATIVE (NEGATIVE); BLOOD URINE NEGATIVE (NEGATIVE); COLOR YELLOW; GLUCOSE URINE NEGATIVE (NEGATIVE); LEUKOCYTES URINE NEGATIVE (NEGATIVE); NITRITE URINE NEGATIVE (NEGATIVE); PROTEIN URINE NEGATIVE (NEGATIVE); SP GRAVITY URINE 1.014; TURBIDITY URINE CLEAR (CLEAR); UROBILINOGEN URINE NORMAL (NORMAL)
[2016-12-06 21:55] LABS: UR EPITHELIAL CELLS <10 /HPF (<10); URINE BACTERIA 4+ /HPF; URINE CULTURE NEEDED? YES; URINE RBC <10 /HPF (<10); URINE WBC <10 /HPF (<10)
--- NOTE | 2016-12-06 22:55 | HISTORY AND PHYSICAL ---
CHIEF COMPLAINT: Shortness of breath x2 days. PRIMARY CARE PHYSICIAN: Dr. Ben Lee. HISTORY OF PRESENTING ILLNESS: A 71-year-old male with a history of diabetes mellitus type 2, COPD, hypertension, had presented to the emergency department with 2 days history of having cough and worsening shortness of breath. The patient states that he was coughing some clearish to yellowish material at time and he was getting more short of breath. He states symptoms were worsening, that he could not tolerate and subsequently had come to the emergency department. In the ER, he was evaluated and due to his presenting symptoms, and also no findings of infiltrate in the right lower lobe, it was thought that he would need hospitalization for further management. At the time of my examination, he had denied any headache, fever, chills, chest pain, hemoptysis, or weight changes, but complained of shortness of breath and having cough. PAST MEDICAL HISTORY: Diabetes mellitus type 2. Benign positional vertigo. Hypertension. Hypercholesterolemia. COPD. PAST SURGICAL HISTORY: Back surgery. Cervical fusion. Left knee replacement. Right above-the- knee amputation. Cholecystectomy. Appendectomy. ALLERGIES: Codeine and vancomycin. CURRENT MEDICATIONS: As listed in the MAR. SOCIAL HISTORY: A 45 pack year history of smoking. Denies any history of alcohol or illicit drug use. FAMILY HISTORY: Positive for coronary disease in mother and father. REVIEW OF SYSTEMS: Twelve point review of systems as listed in HPI. Other systems negative. PHYSICAL EXAMINATION: GENERAL: Cooperative, friendly male. He is resting more comfortably now. VITAL SIGNS: Temperature 98.3 degrees, pulse 68, respirations 22, blood pressure 121/70. He is saturating 99% on room air. HEENT: Atraumatic, normocephalic. Extraocular movements intact. PERRLA. NECK: No masses. CHEST: Rhonchi. CARDIOVASCULAR: Regular rate and rhythm. ABDOMEN: Soft. Positive bowel sounds. EXTREMITIES: Right above-knee amputation noted. : No bladder distention. SKIN: Warm. LABORATORIES AND STUDIES: WBCs 9.63, hemoglobin 14.2, hematocrit 41, platelets 228,000. Sodium 135, potassium 3.6, chloride 98, CO2 20, BUN is 16, creatinine 0.9, glucose 108. ASSESSMENT: This is a 71-year-old male with a history of diabetes mellitus type 2, hypertension, chronic obstructive pulmonary disease who presented to the emergency department with 2 days history of worsening shortness of breath and cough. He was found to have a right lower lobe infiltrate as per ER physician on imaging, and due to his presenting symptoms, he will need hospitalization for further management. 1. Suspected pneumonia. 2. Chronic obstructive pulmonary disease exacerbation. 3. Diabetes mellitus type 2. 4. Hypertension. 5. Probable urinary tract infection. PLAN: 1. We will admit patient to medical floor with telemetry. 2. We will check blood cultures. Start patient on IV antibiotics. 3. We will continue with DuoNebs and Mucinex. 4. We will monitor blood glucose and put patient on sliding scale insulin regimen. 5. We will monitor blood pressure. Resume antihypertensive agents. 6. We will check a urine culture. Continue with IV antibiotics. 7. We will put patient on Lovenox for deep venous thrombosis prophylaxis. 8. We will continue to follow and reassess. cc: Travis Orantes MD
[2016-12-07] MEDS ORDERED: COLACE PO PRN (02:27)
[2016-12-07] MEDS: PERCOCET-10 PO PRN ×5 (03:08→21:00)
[2016-12-07] MEDS: LEVAQUIN 750 MG/D5W 750 MG/150 ML IVPB IV SCH (03:09)
[2016-12-07] MEDS: DUONEB (A & A) INH SCH ×6 (03:44→22:43)
[2016-12-07] MEDS: HUMULIN R SUBQ SCH ×4 (06:35→23:27)
[2016-12-07 06:46] LABS: BASO% 0.1 % (0.0-0.8); EOS# 0.01 X1000 (0.0-0.7); EOS% 0.1 % (0.0-10.0); HEMATOCRIT 40.1 % (42.0-52.0); HEMOGLOBIN 13.5 g/dL (14.0-18.0); IMM GRAN# 0.03 X1000 (0.0-0.04); IMM GRAN% 0.3 % (0.0-0.5); LYMPH# 0.74 X1000 (1.2-3.4); LYMPH% 7.7 % (20.5-51.1); MANUAL DIFF NEEDED? YES; MCH 29.5 PG (27-31); MCHC 33.7 g/dL (33-37); MCV 87.7 FL (81-99); MONO# 0.09 X1000 (0.11-0.59); MONO% 0.9 % (1.7-9.3); MPV 9.6 FL (7.4-10.4); NEUT% 90.9 % (42.2-75.2); PLT 208 X1000 (130-400); RBC 4.57 XMIL (4.7-6.1)
[2016-12-07 07:01] LABS: LYMPHS 18 % (21-51)
[2016-12-07 07:18] LABS: AGAP 14; BUN 15 mg/dL (8-22); CALCIUM 9.1 mg/dL (8.8-10.2); CHLORIDE 106 mmol/L (98-107); COSMO 289; POTASSIUM 3.9 mmol/L (3.5-5.1); SODIUM 139 mmol/L (136-145); TCO2 19 mmol/L (25-35)
--- NOTE | 2016-12-07 07:21 | EKG Report ---
Test Performed on : 12/06/2016 8:24:17 PM Test Reason : sob Blood Pressure : / mmHG Vent. Rate : 067 BPM Atrial Rate : 067 BPM P-R Int : 146 ms QRS Dur : 086 ms QT Int : 426 ms P-R-T Axes : 000 -50 031 degrees QTc Int : 450 ms Sinus rhythm. with fusion complexes Left axis deviation Low voltage QRS Septal infarct (cited on or before 19-JAN-2016) Abnormal ECG When compared with ECG of 23-OCT-2016 19:31, fusion complexes are now present Unconfirmed Result
[2016-12-07] MEDS: PRILOSEC PO SCH (08:01)
[2016-12-07] MEDS: ANTIVERT PO SCH ×2 (08:01→23:24)
[2016-12-07] MEDS: LEXAPRO PO SCH (08:02)
[2016-12-07] MEDS: LIPITOR PO SCH (08:02)
[2016-12-07] MEDS: NEURONTIN PO SCH ×3 (08:02→17:16)
[2016-12-07] MEDS: TOPAMAX PO SCH ×2 (08:02→23:24)
[2016-12-07] MEDS: COREG PO SCH ×2 (08:02→23:24)
[2016-12-07] MEDS: LASIX PO SCH (08:02)
--- NOTE | 2016-12-07 08:57 | Diag Imaging Result Document ---
PROCEDURE NAME: CHEST-PORTABLE - 12/06/2016 PORTABLE CHEST: COMPARISON: 10/23/2016. FINDINGS: Heart size is normal. There is slight prominence of lower lung interstitial markings but these may be exaggerated by soft tissue overlap. There is no dense consolidation, substantial pleural effusion, or pneumothorax identified. IMPRESSION: Nonspecific slight prominence of lower lung interstitial markings. No other evidence of acute disease.
[2016-12-07] MEDS ORDERED: PNEUMOVAX 23 IM ONE (09:00)
--- NOTE | 2016-12-07 14:03 | PROGRESS NOTE ---
DATE: 12/07/2016 SUBJECTIVE: The patient reports breathing a little bit better, but is still mildly short of breath. No fever or chills reported. OBJECTIVE: Vital Signs: Temperature 97.9 degrees, heart rate 90, respiratory rate 18, blood pressure 151/73. O2 saturation 96% 2 L nasal cannula. General Examination: This is a 71-year- old male, looking older than his age, lying in bed in no acute distress. HEENT: Head is normocephalic, atraumatic. Anicteric sclerae and pale conjunctivae. Mucous membranes moist. Neck: Supple. No JVD noted. No carotid bruits. No lymphadenopathy. No thyromegaly. Cardiovascular Exam: S1-S2 heard. No murmurs, gallops, or rubs. Regular rate and rhythm. Respiratory: Clear bilaterally to auscultation. No work of breathing or using accessory muscles. Abdomen: Soft, nontender to palpation. Bowel sounds present. No organomegaly. Extremities: No clubbing, cyanosis, or edema. Peripheral pulses present in both legs. Respiratory: There are decreased breath sounds globally with wheezing in both pulmonary bennett. The patient is not using any accessory muscles or having work of breathing. Abdomen: Soft, nontender to palpation. Bowel sounds present. No organomegaly. Extremities: Right ludlz-hah-epwf amputation noted. Neurological: Patient is alert and oriented x3. Able to move 4 extremities. LABORATORY DATA: White cell count 9.64, hemoglobin 13.5, hematocrit 40.1, platelets 208,000 and the BMP is unremarkable except glucose 293. ASSESSMENT AND PLAN: 1. Chronic obstructive pulmonary disease exacerbation. 2. Pneumonia suspected. 3. Diabetes mellitus, type 2. 4. Hypertension. PLAN: 1. Patient has been admitted to the hospital because of COPD exacerbation and possible pneumonia because the x-ray was not completely clear. We preferred to order a CT of the chest without contrast to have a better visualization with the lung anatomy. We will continue with Levaquin at this time. We will continue with breathing treatments at this time. 2. For diabetes mellitus, type 2 we will continue with sliding scale insulin. Also, because this patient was receiving IV steroids, the glucose will be higher. In any case, we will continue with the same management. 3. For hypertension we will continue home medications. cc: Ceferino Gaytan MD
--- NOTE | 2016-12-07 14:50 | Diag Imaging Result Document ---
PROCEDURE NAME: CT THORAX W/O CONTRAST - 12/07/2016 COMPARISON: 10/25/2016. FINDINGS: There are traces of atelectasis seen at the dependent portions of both lungs posteriorly and at the bases. This is slightly more prominent than the previous study. However, the trace effusion seen on the previous study have resolved. There is mild stable scarring at the right lung apex. There is mild lingular atelectasis that is very similar to the previous study. The lungs are essentially clear, otherwise. No new mediastinal or hilar lymphadenopathy is appreciated. There is patchy coronary artery atherosclerotic calcification and aortic calcification. The heart does not appear to be significantly enlarged. IMPRESSION: 1. Trace atelectasis at the dependent portions of both lungs as described. 2. Other incidental/nonacute findings detailed above.
[2016-12-07] MEDS ORDERED: VANCOMYCIN IV PER PHARMACY MISC SCH (17:00)
[2016-12-07] MEDS: DESYREL PO SCH (23:24)
[2016-12-07] MEDS: TEFLARO 600 MG in NS 250 ML IV SCH (23:26)
[2016-12-08] MEDS: PERCOCET-10 PO PRN ×5 (00:45→23:48)
[2016-12-08] MEDS: LEVAQUIN 750 MG/D5W 750 MG/150 ML IVPB IV SCH ×2 (00:46→02:52)
[2016-12-08] MEDS: PRILOSEC PO SCH ×2 (03:39→08:06)
[2016-12-08] MEDS: DUONEB (A & A) INH SCH ×6 (03:51→23:14)
[2016-12-08] MEDS: NEURONTIN PO SCH ×3 (08:05→17:45)
[2016-12-08] MEDS: ANTIVERT PO SCH ×2 (08:05→20:49)
[2016-12-08] MEDS: TOPAMAX PO SCH ×2 (08:06→20:49)
[2016-12-08] MEDS: COREG PO SCH ×2 (08:06→20:49)
[2016-12-08] MEDS: LIPITOR PO SCH (08:06)
[2016-12-08] MEDS: LEXAPRO PO SCH (08:06)
[2016-12-08] MEDS: LASIX PO SCH (08:06)
[2016-12-08] MEDS: HUMULIN R SUBQ SCH ×4 (08:18→21:49)
[2016-12-08] MEDS: LANTUS SUBQ SCH (08:29)
[2016-12-08] MEDS: TEFLARO 600 MG in NS 250 ML IV SCH ×2 (09:34→20:47)
--- NOTE | 2016-12-08 14:33 | PROGRESS NOTE ---
DATE: 12/08/2016 SUBJECTIVE: This patient states that he is feeling better. He is not complaining today of shortness of breath. He is still coughing. OBJECTIVE: Vital Signs: Temperature 98.1 degrees, pulse 78, respiratory rate 20, blood pressure 141/79, oxygen saturation 93% on 2 L of nasal cannula. HEENT: Head normocephalic. No trauma. PERRLA. Neck: Supple. No JVD. No masses. Central trachea. Cardiovascular: RRR. No murmurs. Chest: Bilateral coarse breath sounds. Abdomen: Soft, nontender, nondistended. No hepatosplenomegaly. Extremities: No clubbing, cyanosis, or edema. He has a right lower extremity amputation. Neurological examination: The patient is alert and oriented x3. He moves all 4 extremities. LABORATORY: No lab work today. ASSESSMENT AND PLAN: 1. Chronic obstructive pulmonary disease exacerbation. This patient is getting better. He is not getting any kind of steroids today, he is breathing much better. Probably tomorrow we will discharge this patient. 2. Pneumonia, CT scan of the chest was done yesterday and showed a trace atelectasis at the dependent portions of both lungs, no acute findings. 3. Type 2 diabetes. Today I started this patient on Lantus 15. Will continue to monitor the blood sugar, and will continue with sliding scale insulin. 4. Hypertension. Blood pressure has been stable. Continue with the same management. I saw in his home medications that this patient has been on prednisone. I asked him about this and he denied it. He states that he has not been on prednisone for awhile. This patient is doing much better. Probably I will discharge this patient tomorrow if everything is okay. cc: Mikey Oreilly MD
[2016-12-08] MEDS: DESYREL PO SCH (20:48)
[2016-12-09] MEDS: LEVAQUIN 750 MG/D5W 750 MG/150 ML IVPB IV SCH ×2 (03:00→03:22)
[2016-12-09] MEDS: PERCOCET-10 PO PRN ×2 (03:00→08:41)
[2016-12-09] MEDS: TEFLARO 600 MG in NS 250 ML IV SCH ×2 (03:21→13:31)
[2016-12-09] MEDS: DUONEB (A & A) INH SCH ×3 (03:39→11:23)
[2016-12-09] MEDS ORDERED: INSULIN PEN NEEDLES ONE (06:30)
[2016-12-09 07:25] LABS: MANUAL DIFF NEEDED? NO
[2016-12-09 07:38] LABS: BASO% 0.3 % (0.0-0.8); EOS# 0.28 X1000 (0.0-0.7); EOS% 3.6 % (0.0-10.0); HEMATOCRIT 39.9 % (42.0-52.0); HEMOGLOBIN 13.2 g/dL (14.0-18.0); IMM GRAN# 0.02 X1000 (0.0-0.04); IMM GRAN% 0.3 % (0.0-0.5); LYMPH% 23.2 % (20.5-51.1); MCH 29.7 PG (27-31); MCHC 33.1 g/dL (33-37); MCV 89.7 FL (81-99); MONO# 0.56 X1000 (0.11-0.59); MONO% 7.2 % (1.7-9.3); MPV 9.6 FL (7.4-10.4); NEUT% 65.4 % (42.2-75.2); PLT 207 X1000 (130-400); RBC 4.45 XMIL (4.7-6.1)
[2016-12-09 08:00] LABS: AGAP 13; BUN 11 mg/dL (8-22); CHLORIDE 104 mmol/L (98-107); COSMO 283; POTASSIUM 3.9 mmol/L (3.5-5.1); SODIUM 140 mmol/L (136-145); TCO2 23 mmol/L (25-35)
[2016-12-09 08:02] VITALS: BP 141/72
[2016-12-09] MEDS: LANTUS SUBQ SCH (08:40)
[2016-12-09] MEDS: ANTIVERT PO SCH (08:41)
[2016-12-09] MEDS: LASIX PO SCH (08:41)
[2016-12-09] MEDS: LEXAPRO PO SCH (08:41)
[2016-12-09] MEDS: LIPITOR PO SCH (08:41)
[2016-12-09] MEDS: COREG PO SCH (08:41)
[2016-12-09] MEDS: TOPAMAX PO SCH (08:41)
[2016-12-09] MEDS: PRILOSEC PO SCH (08:41)
[2016-12-09] MEDS: NEURONTIN PO SCH (08:41)
[2016-12-09] MEDS: HUMULIN R SUBQ SCH ×2 (11:03→13:32)
--- NOTE | 2016-12-09 13:55 | DISCHARGE SUMMARY ---
ADMISSION DATE: 12/06/2016 DISCHARGE DATE: 12/09/2016 CONSULTATIONS: None. PERTINENT PROCEDURES: Chest CT showed trace atelectasis in the dependent portion of both lungs. DISCHARGE DIAGNOSES: 1. Chronic obstructive pulmonary disease exacerbation improved. 2. Pneumonia. CT scan of the chest was done that showed trace atelectasis at the dependent portion of both lungs. No acute findings. 3. Type 2 diabetes. The patient was started on Lantus. 4. Hypertension. Continue with home medications. HOSPITAL COURSE: Mr. Hutton is a 71-year-old male with a history of diabetes mellitus type 2, COPD, hypertension, benign positional vertigo, hypercholesterolemia. The patient presented to the emergency room with 2 days history of cough and worsening shortness of breath. He was evaluated in the ED with no findings of infiltrate. He was admitted for suspected pneumonia as well as COPD exacerbation. A CT of the chest was completed and it just showed trace atelectasis at the dependent portions of both lungs. It did not show any pneumonia. The patient was admitted and started on IV fluids, as well as IV antibiotics, bronchodilators and aggressive pulmonary toilet. As well, as resumed on all home medications. While he was admitted to the hospital, the patient was also initiated on Lantus to help control his diabetes. Clinically the patient has improved. His shortness of breath resolved. The patient is being discharged home today. Vital signs at time of his discharge, temperature is 98.5 degrees, heart rate 63, respirations 17, blood pressure is 141/72, O2 is 97% on 2 L nasal cannula. DISCHARGE DIET: Diabetic. DISCHARGE MEDICATIONS: 1. DuoNeb 3 mL inhaled q.4 hours p.r.n. 2. Lipitor 40 mg p.o. daily. 3. Coreg 3.125 mg p.o. b.i.d. 4. Colace 100 mg p.o. p.r.n. 5. Lexapro one 10 mg tab p.o. daily. 6. Advair 550 Diskus 1 puff inhaled RT b.i.d. 7. Lasix 40 mg p.o. daily. 8. Neurontin 400 mg p.o. t.i.d. 9. Glucotrol 5 mg p.o. b.i.d. 10. Levaquin 750 mg p.o. daily for 4 days. 11. Antivert 25 mg p.o. b.i.d. 12. Fortamet 1000 mg p.o. b.i.d. 13. Prilosec 20 mg p.o. daily. 14. Oxycodone acetaminophen 10/325, 1/2 to 1 tab p.o. q.4 hours p.r.n. 15. Actos 45 mg p.o. daily. 16. Potassium 10 mEq p.o. daily. 17. Prednisone 10 mg p.o. as directed. 18. Spiriva 4 g inhaled daily. 19. Topamax 25 mg p.o. b.i.d. 20. Desyrel 150 mg tablet 2 tabs p.o. at bedtime. DISPOSITION: Patient is being discharged home. DISCHARGE INSTRUCTIONS: He will need to continue a full course of antibiotics as well as steroid taper. The patient will follow up with a primary care physician from a list that has been provided to him in 1 week. The patient can return to the ED for any worsening of symptoms. DISCHARGE TIME: Thirty minutes. Dictated by TAVO Brooks for Mikey Oreilly MD cc: Mikey Oreilly MD
[2016-12-10] MEDS ORDERED: LEVAQUIN PO SCH (09:00)
== END 2016-12-09 13:44 | disposition home or self-care (01) ==
LOC: ED 20:14 → SUATTDRO 22:26 → 3N 22:26
PROVIDERS: ATTEND Internal Medicine

== ENCOUNTER 2016-12-15 17:42 | Inpatient (IN) ==
[2016-12-15] MEDS ORDERED: DUONEB (A & A) INH ONE (18:46)
[2016-12-15] MEDS ORDERED: SOLU-MEDROL IV ONE (18:46)
--- NOTE | 2016-12-15 18:53 | PROVIDER DOCUMENTATION ---
HPI-Respiratory General - General Chief Complaint: Shortness of Breath Stated Complaint: EMMANUEL, SOB X1 DAY Time Seen by Provider: 12/15/16 18:40 Source: patient Allergies/Adverse Reactions: Patient Allergies Allergy/AdvReac Type Severity Reaction Status Date / Time codeine AdvReac NAUSEA Verified 12/15/16 18:09 vancomycin AdvReac NAUSEA/VOMI Verified 12/15/16 18:09 TING Home Medications: Home Medication List Medication Instructions Recorded Confirmed Last Taken Type Carvedilol [Coreg] 3.125 mg PO BID 08/24/12 12/15/16 12/15/16 History Pioglitazone HCl [Actos] 45 mg PO DAILY 08/24/12 12/15/16 12/15/16 11:30 History Furosemide [Lasix] 40 mg PO DAILY 08/08/14 12/15/16 12/15/16 History Omeprazole [Prilosec] 20 mg PO DAILY 06/24/15 12/15/16 12/15/16 History Potassium Chloride 1 tab PO DAILY 06/24/15 12/15/16 12/15/16 11:30 History Metformin HCl [Fortamet] 1 tab PO BID 10/18/15 12/15/16 12/15/16 History Topiramate [Topamax] 25 mg PO BID 10/18/15 12/15/16 12/14/16 History Glipizide [Glucotrol] 5 mg PO BID 01/19/16 12/15/16 12/15/16 History Atorvastatin Calcium [Lipitor] 1 tab PO DAILY 10/16/16 12/15/16 12/14/16 20:00 History Trazodone HCl 2 tab PO QHS 10/16/16 12/15/16 12/14/16 20:30 History Docusate Sodium 1 tab PO PRN PRN 10/23/16 12/15/16 12/06/16 08:00 History Escitalopram Oxalate [Lexapro] 1 tab PO DAILY 10/23/16 12/15/16 12/15/16 History Meclizine HCl [Antivert] 1 tab PO BID 10/23/16 12/15/16 12/15/16 History Albuterol 2.5MG/Ipratrop 0.5MG 3 ml INH Q4H PRN #10 neb 10/26/16 12/15/16 15:30 Rx [Duoneb (A & A)] Fluticasone/Salmet 500/50 INH 1 puff INH RTBID #1 inhaler 10/26/16 12/15/1604/25 Rx [Advair 500/50 Diskus] Tiotropium [place] [Spiriva 4 gm IH DAILY #1 mist.inhal 10/26/16 12/15/16 Rx Respimat] Gabapentin [Neurontin] 400 mg PO TID #90 capsule 12/09/16 12/15/16 12/15/16 Rx Oxycodone HCl/Acetaminophen 0.5 - 1 tab PO Q4H PRN PRN #20 12/09/16 12/15/1604/25 Rx [Oxycodone-Acetaminophen 10-325] tablet Azithromycin 250 mg PO DAILY #5 tablet 12/18/16 Unknown Rx CefDINIR [Omnicef] 300 mg PO BID #14 capsule 12/18/16 Unknown Rx Prednisone 10 mg PO DAILY #30 tablet 12/18/16 Unknown Rx - History of Present Illness-Resp Nature of Presenting Problem: 71 yom with c/o SOB. Pt was released from the hospital on Wed after being diagnosed with R lung pneumonia. Pt now c/o left chest pain with this SOB. Quality of Pain: reports: aching, tightness Severity in ED: reports: moderate Onset/Duration: reports: 3 days ago Timing: reports: still present, getting worse Cough Quality/Degree: reports: moderate, productive cough Episode Frequency: no prior episodes Similar Symptoms Previously?: Yes Recently seen or treated by another doctor?: Yes Review of Systems - Adult - REVIEW OF SYSTEMS - ADULT Constitutional: reports: see HPI Eyes: reports: no symptoms reported Ears, Nose, Mouth & Throat: reports: no symptoms reported Cardiovascular: reports: see HPI, chest pain Respiratory: reports: see HPI Gastrointestinal: reports: no symptoms reported Genitourinary: reports: no symptoms reported Musculoskeletal: reports: no symptoms reported Integumentary: reports: no symptoms reported Neurological: reports: no symptoms reported All Other Systems: Reviewed and Negative Past History - Adult - PAST MEDICAL HISTORY-ADULT Review of Records: reports: Old Records Reviewed, Nursing Assessment Review, Medications Reviewed, Social history reviewed & non-contributory. Major Childhood Illnesses: reports: denies history Cardiovascular: reports: HTN Respiratory: reports: COPD, sleep apnea Musculoskeletal: reports: intervertebral disc disease Endocrine/Immune: reports: Diabetes - PRIOR SURGERIES/PROCEDURES Surgical/Procedure History: reports: appendectomy, cholecystectomy, tonsillectomy, joint replacement (bilateral knees x 3), back/neck, other ( cataract surgery; right bka) - IMMUNIZATION STATUS Childhood Immunizations: See Nurse Assessment Flu Vaccine: See Nurse Assessment - FAMILY HISTORY Family History: reviewed, not pertinent Physical Exam-General - PHYSICAL EXAM-ADULT Initial Vital Signs Reviewed: Yes - CONSTITUTIONAL General Appearance: appears well, alert, mild distress (due to SOB) - EYES Eyes: PERRL/EOMI, pink conjunctivae - HEAD, EARS, NOSE, MOUTH & THROAT HENMT: normocephalic/atraumatic, moist mucous membranes, normal ENT inspection - NECK Neck: non-tender, full range of motion, supple, normal inspection - RESPIRATORY Respiratory: chest non-tender, no pleuratic chest pain, no respiratory distress , no accessory muscle use, decreased breath sounds, rhonchi, wheezing - CARDIOVASCULAR Cardiovascular: normal peripheral pulses, regular rate, rhythm, no edema, no gallop, no JVD, no murmur - GASTROINTESTINAL (ABDOMEN) Abdominal Exam: normal bowel sounds, non tender, soft, no organomegaly, no pulsatile mass - LYMPHATIC Lymphatic: no adenopathy - MUSCULOSKELETAL Back Exam: normal inspection, no CVA tenderness, no vertebral tenderness Extremity: normal range of motion, non-tender, normal inspection, no pedal edema , no calf tenderness, normal capillary refill - SKIN Integumentary: normal color, normal turgor, warm/dry - NEUROLOGIC Neurologic: grossly normal - PSYCHIATRIC Psych/Mental Status: oriented x 3 Progress - PLAN OF CARE/RESULTS Progress/Plan/Lab Results: Orders Category Date Time Status Admit - [facility] - [facility] Routine AdmDCTranf 12/15/16 23:04 Ordered Activity - Up with Assistance ORDERED Care 12/15/16 23:04 Active FSBS/Accucheck Result AC + HS Care 12/15/16 23:04 Active Intake and Output-Strict ORDERED Care 12/15/16 23:04 Active Nursing- Assist w/ IS as order ORDERED Care 12/15/16 23:04 Active Nursing- MD Consult Request ROUTINE Care 12/15/16 23:04 Completed Saline Loc DIRECTED Care 12/15/16 23:04 Active Saline Loc NOW Care 12/15/16 18:46 Completed Turn, Cough and Deep Breathe Q4HR.AWAKE Care 12/15/16 23:04 Active Vital Signs Order Q 4-HR ASSESS Care 12/15/16 23:04 Active Physician/Provider Consults Routine Cons 12/15/16 23:04 Ordered Physician/Provider Consults Routine Cons 12/15/16 23:04 Ordered Diabetic Diet Diet 12/15/16 21:18 Completed CHEST-2 VIEWS [RAD] Stat Exams 12/15/16 18:46 Completed A1C HGB W EST AVG GLUCOSE [CHEM] Stat Lab 12/15/16 18:20 Completed ABG [RESP] Routine Lab 12/15/16 18:47 Completed BLOOD CULTURE [BLDCUL] Stat Lab 12/15/16 19:15 Completed CBC WITH DIFF [HEME] Routine Lab 12/16/16 05:55 Completed CBC WITH DIFF [HEME] Stat Lab 12/15/16 18:20 Completed CK PROFILE [SP CHEM] Stat Lab 12/15/16 18:20 Completed COMPREHENSIVE METABOLIC PANEL [CHEM] Routine Lab 12/16/16 05:55 Completed COMPREHENSIVE METABOLIC PANEL [CHEM] Stat Lab 12/15/16 18:20 Completed LACTATE, PLASMA [CHEM] Stat Lab 12/15/16 19:15 Completed LIPID PROFILE W/CALC LDL [LIPIDS] Routine Lab 12/16/16 05:55 Completed PRO B-NATRIURETIC PEPTIDE Stat Lab 12/15/16 18:20 Completed TROPONIN T Q6H Lab 12/15/16 23:04 Completed TROPONIN T Q6H Lab 12/16/16 05:55 Completed TROPONIN T Stat Lab 12/15/16 18:20 Completed 0.9% Sodium Chloride Inj [Ns] 1,000 ml Med 12/15/16 20:10 Discontinued IV 999 mls/hr ATORVAstatin [Lipitor] Med 12/16/16 21:00 Discontinued 40 mg PO HS Acetaminophen [Tylenol] Med 12/15/16 23:04 Discontinued 650 mg PO Q6H PRN PRN Albuterol 2.5MG/Ipratrop 0.5MG [Duoneb (A & A)] Med 12/15/16 18:46 Discontinued 3 ml INH NOW ONE Albuterol 2.5MG/Ipratrop 0.5MG [Duoneb (A & A)] Med 12/15/16 23:04 Discontinued 3 ml INH RTQ6H Aspirin Med 12/16/16 09:00 Discontinued 325 mg PO DAILY Azithromycin 500 mg/Ns [Zithromax 500 mg/Ns] Med 12/15/16 23:04 Discontinued 500 mg in 250 ml IV Q24H Carvedilol [Coreg] Med 12/15/16 23:04 Discontinued 3.125 mg PO BID Docusate Sodium [Colace] Med 12/15/16 23:04 Discontinued 200 mg PO BID Enoxaparin [Lovenox] Med 12/15/16 23:04 Discontinued 40 mg SUBQ Q24H Escitalopram [Lexapro] Med 12/16/16 09:00 Discontinued 10 mg PO DAILY Formoterol Neb [Perforomist Neb] Med 12/15/16 23:15 Discontinued 20 microgm INH RTBID Furosemide [Lasix] Med 12/16/16 09:00 Discontinued 40 mg PO DAILY Gabapentin [Neurontin] Med 12/16/16 09:00 Discontinued 400 mg PO TID Glipizide [Glucotrol] Med 12/15/16 23:04 Discontinued 5 mg PO BID Insulin Human Regular [Humulin R] Med 12/16/16 07:00 Discontinued See Protocol IV AC + HS Methylprednisolone Sod Succ [Solu-Medrol] Med 12/15/16 18:46 Discontinued 125 mg IV NOW ONE Methylprednisolone Sod Succ [Solu-Medrol] Med 12/16/16 03:00 Discontinued 60 mg IV Q8H Nicotine Patch [Nicoderm Patch] Med 12/16/16 09:00 Discontinued 21 mg TD DAILY Ondansetron [Zofran] Med 12/15/16 23:04 Discontinued 4 mg IV Q4H PRN PRN Oxycodone/APAP 10 mg/325 mg [Percocet-10] Med 12/15/16 23:04 Discontinued 1 each PO Q4H PRN PRN Scopolamine 1.5 mg/72 Hr Patch [Transderm-Scop] Med 12/15/16 23:04 Discontinued 1 each TD NOW ONE Theophylline E.r. [Magdaleno-Dur] Med 12/16/16 09:00 Discontinued 300 mg PO DAILY Topiramate [Topamax] Med 12/15/16 23:04 Discontinued 25 mg PO BID Trazodone HCl [Trazodone HCl] Med 12/15/16 23:04 Discontinued 2 tab PO QHS Aerosol Treatments Routine Ot 12/15/16 18:48 Completed Aerosol Treatments Stat Ot 12/15/16 18:48 Completed Incentive Spirometer Q4HR.AWAKE [facility] 12/16/16 01:00 Completed Incentive Spirometer Q4HR.AWAKE [facility] 12/16/16 05:00 Completed Incentive Spirometer Q4HR.AWAKE [facility] 12/16/16 09:00 Completed Incentive Spirometer Q4HR.AWAKE Ot 12/16/16 13:00 Completed Incentive Spirometer Q4HR.AWAKE Ot 12/16/16 17:00 Completed Incentive Spirometer Q4HR.AWAKE [facility] 12/16/16 21:00 Completed Oxygen Device Routine [facility] 12/15/16 23:04 Completed Peak Flow BID [facility] 12/16/16 09:00 Completed Peak Flow BID [facility] 12/16/16 21:00 Completed Pulse Oximetry Stat [facility] 12/15/16 18:46 Completed EKG [EKG] Stat Ther 12/16/16 06:00 Completed Transfer/Admit Order [TRANSFER] Routine Transfer 12/15/16 20:38 Completed Result Diagrams: 12/18/16 07:07 12/18/16 07:07 Departure - Departure Time of Disposition Decision: 22:00 DIAGNOSIS: PNA (pneumonia) Disposition: ADMITTED INPATIENT 09 Certified Medical Emergency: Emergent Condition: Stable - Critical Care Note This patient required my direct & personal management of CC.: No Attestation - Physician/ JORDY Attestation Patient care was provided by Advanced Practice Provider:: Yes Advanced Practice Provider:: Roni Cortez Advanced Practice Provider documentation review:: The Mid-level provider documentation, treatment plan and medical decision making was reviewed by the physician who agrees with all treatment and medical decision making by the [facility].
[2016-12-15 19:04] LABS: MANUAL DIFF NEEDED? NO
[2016-12-15 19:09] LABS: BASO% 0.3 % (0.0-0.8); EOS# 0.09 X1000 (0.0-0.7); EOS% 0.8 % (0.0-10.0); HEMATOCRIT 39.1 % (42.0-52.0); HEMOGLOBIN 13.2 g/dL (14.0-18.0); IMM GRAN# 0.03 X1000 (0.0-0.04); IMM GRAN% 0.3 % (0.0-0.5); LYMPH# 1.36 X1000 (1.2-3.4); LYMPH% 12.5 % (20.5-51.1); MCH 29.9 PG (27-31); MCHC 33.8 g/dL (33-37); MCV 88.5 FL (81-99); MONO# 0.49 X1000 (0.11-0.59); MONO% 4.5 % (1.7-9.3); MPV 9.7 FL (7.4-10.4); NEUT% 81.6 % (42.2-75.2); PLT 239 X1000 (130-400); RBC 4.42 XMIL (4.7-6.1)
[2016-12-15 19:26] LABS: ALLEN TEST YES; BLOOD TYPE ARTERIAL; DRAW SITE R RADIAL; METHB 1.7 % (0.0-1.5); O2(CT) 16.8 mL/dL (15.0-23.0); PCO2(98.6) 34 mmHg (35-45); PO2(98.6) 79 mmHg (60-100); SAMPLE BLOOD; SAO2 97.3 % (95.0-100.0); THB 13.4 g/dL (11.5-17.4)
[2016-12-15 19:27] LABS: MODALITY CANNULA
--- NOTE | 2016-12-15 19:29 | Diag Imaging Result Document ---
PROCEDURE NAME: CHEST-2 VIEWS - 12/15/2016 FRONTAL AND LATERAL CHEST, 2 VIEWS: COMPARISON: Compared to 12/06/2016 The lungs are well expanded. The heart is not enlarged. The vessels are not distended. There are no infiltrates. No pleural effusions. IMPRESSION: No pneumonia.
[2016-12-15 19:41] LABS: AGAP 14; ALBUMIN 3.7 g/dL (3.5-5.0); ALKALINE PHOSPHATASE 87 U/L (32-122); BUN 16 mg/dL (8-22); CALCIUM 9.6 mg/dL (8.8-10.2); CHLORIDE 100 mmol/L (98-107); CK PROFILE 57 U/L (24-204); COSMO 276; GOT 11 U/L (10-34); GPT 11 U/L (10-44); POTASSIUM 3.8 mmol/L (3.5-5.1); SODIUM 135 mmol/L (136-145); TCO2 21 mmol/L (25-35); TOTAL BILIRUBIN 0.26 mg/dL (0.20-1.00); TOTAL PROTEIN 6.5 g/dL (6.3-8.3)
[2016-12-15] MEDS ORDERED: NS 1,000 ML IV ONE (20:10)
--- NOTE | 2016-12-15 22:53 | HISTORY AND PHYSICAL ---
PRIMARY CARE PHYSICIAN: No documented primary care physician. I think it is Dr. Ben Lee. REASON FOR ADMISSION: Two-day history of worsening shortness of breath, cough and chest pain. HISTORY OF PRESENT ILLNESS: Mr. Raul Hutton 71-year-old man with past medical history of coronary artery disease, COPD, type 2 diabetes, hypertension, hyperlipidemia and chronic vertigo. He was recently admitted to our facility on 4 separate occasions for "COPD exacerbation" last 1 he was admitted for presumptive pneumonia of which the CT scan did not show any infiltrate. The patient was treated however for this and sent in-house and given 4-day course of Levaquin. Patient comes today complaining of 2-day history of acute on chronic shortness of breath with no fever or chills and a dry cough. He admits to having 2-day history of orthopnea with this but no PND, no leg swelling or extremity redness or pain. He also complains of chest pain which he says spontaneous, intermittent, lasting a few minutes and retrosternal in nature. Nonradiating. He says the chest pain sometimes is heaviness or sometimes a sharpness. It is not related to cough however. REVIEW OF SYSTEMS: Notable for positional vertigo and tinnitus and decreased hearing in left ear which has been going on for years. No visual symptoms. No diplopia. No neck stiffness. No focal neurological complaints. ALLERGIES: Codeine and vancomycin. HOME MEDICATIONS: Include meclizine 25 mg b.i.d., Lasix 40 mg daily, Advair 250 /50 b.i.d., Lexapro 1 daily, Colace 1 tablet 100 mg daily, Coreg 3.125 mg daily, Lipitor 40 mg daily, DuoNeb q.4 p.r.n., metformin 1000 b.i.d., Glucotrol 5 mg b.i.d., gabapentin 400 mg t.i.d., oxycodone 10 mg ativan 0.5-1 mg p.r.n. Actos 45 mg daily, potassium chloride 10 mEq daily, Topamax 25 mg b.i.d., trazodone 300 mg at bedtime, Spiriva 1 puff daily, omeprazole 20 mg daily. PAST SURGICAL HISTORY: He has had cataract surgery, 12 back surgeries, cervical fusion, left knee replacement with right [id number] amputation, cholecystectomy, appendectomy. FAMILY HISTORY: Notable for coronary artery disease and diabetes in first- degree relatives. SOCIAL HISTORY: Smokes about 1 pack a day, voices desire to quit but has no plan to quit in short term, No illicit drug use. LAB WORK: Chest film shows COPD, no infiltrate. White count 11.000, hemoglobin and hematocrit 13 and 39, platelets 239,000 with 81% neutrophils. Sodium is 135, BUN 16, creatinine 0.9, glucose 185. Troponins negative. ProBNP 488, CK 57, lactate is 2.9, pH 7.4, pCO2 34 , PO2 79 on 2 L. EKG shows normal sinus rhythm with questionable Q-waves, ME wave progression anterior leads. Also has what appears to be inferior lead Q-waves versus left axis deviation, normal sinus rhythm at 75 beats per minute. Nonspecific ST-wave changes in leads, no acute injury pattern noted. PHYSICAL EXAMINATION: VITAL SIGNS: Blood pressure 106/53, heart rate 88, respirations 16, temperature is 98.7 degrees with 97% O2 saturation on 2 L. GENERAL: He is an elderly man who is chronically ill. He is obese. He is alert and oriented to time, he is in mild distress from vertigo at this point in time. He has a sad affect and depressed mood. HEENT: Head is normocephalic, atraumatic. PERRLA, EOMI. He is anicteric and not pale. No nystagmus noted in either vertical or horizontal plane. ENT and oropharynx exam is grossly normal, some cyanosis. NECK: Short and thick. No JVD or carotid bruit, thyromegaly. CHEST: Decreased entry in both lung bennett. Scattered wheezes. No crepitations. CARDIOVASCULAR: First and second heart sounds are distant. Rhythm is regular. I cannot appreciate any murmurs or rubs. ABDOMEN: Protuberant, soft, no tenderness, megaly, bowel sounds are normal. RECTAL: Deferred at this time. EXTREMITIES: The patient has a right AKA stump which is which has intact skin , good femoral pulse. No breakdown or erythema distally, left lower extremity has good pulses distally. No clubbing or cyanosis. No edema. NEUROLOGICAL: Grossly intact. No focal deficits. SKIN: Intact. No breakdown noted. MUSCULAR EXAM: Is grossly normal. ASSESSMENT: This time. 1. Chronic obstructive pulmonary disease exacerbation. 2. Chest pain somewhat atypical. 3. Type 2 diabetes. 4. Coronary artery disease. 5. Chronic positional vertigo. 6. Hypertension. 7. Hyperlipidemia. 8. Tobacco use. PLAN: At this time we will treat patient for a COPD exacerbation with steroids, long and short- acting bronchodilators, short term macrolide antibiotics, the express purpose exploiting anti- inflammatory properties. Patient would need to be supervised to see if he is competent to use his MDI inhalers which could be a problem here. I have also taken a luxury of start him on short- term theophylline for its synergistic effect of steroids to help with his breathing. Will consult cardiology in view of his abnormal EKG, chest pain. His most recent EKG although a limited study was no comment on regional wall motion abnormality and he has not had a stress test done in years. Will just do serial cardiac enzymes. Will consult ENT because patient's of his most pressing problems is that his vertigo has gotten worse and will like this resolved because it is affecting the quality of his life. Check A1c, start patient on insulin and sliding scale but will continue Glucotrol. Check lipid panel to see if his statin dose can be modified further. I had a long talk with the patient about smoking cessation and he does not strike me as someone who really wants to quit at this point in time. As long as he continues to smoke I told him that he should expect further decline clinically in his lung function. cc: Jami Gibbs MD MTDD
[2016-12-15] MEDS ORDERED: TRANSDERM-SCOP TD ONE (23:04)
[2016-12-15] MEDS ORDERED: TYLENOL PO PRN (23:04)
[2016-12-15] MEDS ORDERED: TRAZODONE HCL PO SCH (23:04)
[2016-12-15] MEDS ORDERED: ZOFRAN IV PRN (23:04)
[2016-12-16] MEDS ORDERED: TRAZODONE HCL 300 MG PO SCH
[2016-12-16] MEDS: GLUCOTROL PO SCH ×3 (00:05→20:12)
[2016-12-16] MEDS: TOPAMAX PO SCH ×3 (00:05→20:12)
[2016-12-16] MEDS: LOVENOX SUBQ SCH (00:05)
[2016-12-16] MEDS: COREG PO SCH ×3 (00:05→20:12)
[2016-12-16] MEDS: ZITHROMAX 500 MG/NS 500 MG/250 ML IVPB IV SCH (00:05)
[2016-12-16] MEDS: COLACE PO SCH ×3 (01:05→20:12)
[2016-12-16] MEDS: DESYREL PO SCH ×2 (01:11→20:12)
[2016-12-16] MEDS: DUONEB (A & A) INH SCH ×6 (03:11→19:23)
[2016-12-16] MEDS: SOLU-MEDROL IV SCH ×3 (04:26→20:11)
--- NOTE | 2016-12-16 05:29 | EKG Report ---
Test Performed on : 12/15/2016 5:57:44 PM Test Reason : cp Blood Pressure : / mmHG Vent. Rate : 075 BPM Atrial Rate : 075 BPM P-R Int : 142 ms QRS Dur : 086 ms QT Int : 410 ms P-R-T Axes : 000 -57 021 degrees QTc Int : 457 ms Normal sinus rhythm. Left axis deviation Low voltage QRS Septal infarct (cited on or before 19-JAN-2016) Abnormal ECG When compared with ECG of 06-DEC-2016 20:24, fusion complexes are no longer present Unconfirmed Result
[2016-12-16] MEDS: HUMULIN R IV SCH ×2 (06:00→10:55)
[2016-12-16 06:21] LABS: BASO% 0.1 % (0.0-0.8); HEMATOCRIT 39.9 % (42.0-52.0); HEMOGLOBIN 13.4 g/dL (14.0-18.0); IMM GRAN# 0.04 X1000 (0.0-0.04); IMM GRAN% 0.4 % (0.0-0.5); LYMPH# 0.89 X1000 (1.2-3.4); LYMPH% 8.5 % (20.5-51.1); MANUAL DIFF NEEDED? YES; MCH 29.7 PG (27-31); MCHC 33.6 g/dL (33-37); MCV 88.5 FL (81-99); MONO# 0.08 X1000 (0.11-0.59); MONO% 0.8 % (1.7-9.3); MPV 9.5 FL (7.4-10.4); NEUT% 90.2 % (42.2-75.2); PLT 215 X1000 (130-400); RBC 4.51 XMIL (4.7-6.1)
[2016-12-16 06:30] LABS: AGAP 13; ALBUMIN 3.6 g/dL (3.5-5.0); ALKALINE PHOSPHATASE 86 U/L (32-122); BUN 21 mg/dL (8-22); CALCIUM 8.9 mg/dL (8.8-10.2); CHLORIDE 102 mmol/L (98-107); COSMO 290; GOT 9 U/L (10-34); GPT 10 U/L (10-44); HDL 42 mg/dL (35-55); LDL 78 mg/dL; POTASSIUM 3.9 mmol/L (3.5-5.1); SODIUM 136 mmol/L (136-145); TCO2 21 mmol/L (25-35); TOTAL BILIRUBIN 0.24 mg/dL (0.20-1.00); TOTAL PROTEIN 6.5 g/dL (6.3-8.3); TRIGLYCERIDES 67 mg/dL (39-160); VLDL 13 mg/dL
--- NOTE | 2016-12-16 06:31 | EKG Report ---
Test Performed on : 12/16/2016 05:59:46 AM Test Reason : cp Blood Pressure : / mmHG Vent. Rate : 082 BPM Atrial Rate : 082 BPM P-R Int : 134 ms QRS Dur : 090 ms QT Int : 404 ms P-R-T Axes : 056 -72 046 degrees QTc Int : 472 ms Normal sinus rhythm. Left axis deviation Low voltage QRS Septal infarct (cited on or before 19-JAN-2016) Abnormal ECG When compared with ECG of 15-DEC-2016 17:57, No significant change was found Confirmed by Galen Meyers MD ([id number]) on 12/16/2016 9:10:56 AM
[2016-12-16 06:46] LABS: BANDS 2 % (0-1); LYMPHS 8 % (21-51)
[2016-12-16] MEDS: LEXAPRO PO SCH (08:30)
[2016-12-16] MEDS: ASPIRIN PO SCH (08:30)
[2016-12-16] MEDS: NICODERM PATCH TD SCH (08:30)
[2016-12-16] MEDS: LASIX PO SCH (08:30)
[2016-12-16] MEDS: KLOR-CON PO SCH (08:31)
[2016-12-16] MEDS: NEURONTIN PO SCH ×3 (08:31→20:12)
[2016-12-16] MEDS: THEO-DUR PO SCH ×2 (08:31→11:12)
[2016-12-16] MEDS ORDERED: POTASSIUM CHLORIDE PO SCH (09:00)
--- NOTE | 2016-12-16 11:07 | CONSULTATION ---
DATE OF CONSULTATION: 12/16/2016 REASON FOR CONSULTATION: Cardiology consulted for chest pain. HISTORY OF PRESENT ILLNESS: Mr. Raul Hutton is a 71-year-old gentleman with a past medical history of COPD, diabetes, hypertension, hyperlipidemia. He was recently here with COPD exacerbation, treated with Levaquin. He comes with complaints of increasing cough with shortness of breath. Had left-sided chest discomfort as well. Symptoms of chest pain intermittent, lasted for few minutes, nonradiating. His main problems have also been with ongoing cough with some expectoration. REVIEW OF SYSTEMS: A 14-point review of system was done.Cardiovascular System: There are no palpitations. There is no syncope. There is no previous. history of coronary artery disease. System: There is no dysuria or hematuria. Respiratory system: As above. In addition, there is no hemoptysis. GI system: There is no history of nausea or vomiting. System: There is no dysuria or hematuria. PAST MEDICAL HISTORY: COPD, obesity, sleep apnea, diabetes, hypertension, gastroesophageal reflux disease, peripheral neuropathy.CAD: Last cardiac cath 08/2011/ lad 40%, Cic 40 % , OM 3, 40 %. RCA 100% left to right collaterals. Peripheral Vascular disease: left common femoral sev stenosis. ALLERGIES: Codeine and vancomycin. HOME MEDICATIONS: Meclizine 25 b.i.d., Advair 250/50, Coreg 3.125 daily, Lipitor 40, DuoNeb, metformin 1000 b.i.d., Glucotrol 5 b.i.d., gabapentin 400 t.i.d., oxycodone, Actos 45, potassium supplements, Topamax 25 b.i.d., trazodone 300, Spiriva, omeprazole. PAST SURGICAL HISTORY: Include cataract surgery, twelve back surgeries, cervical fusion surgery, left knee replacement, right [id number] amputation, cholecystectomy, appendectomy. SOCIAL HISTORY: Patient smokes 1 pack of cigarettes a day. There is no history of alcohol abuse. PHYSICAL EXAMINATION: Vital signs: Blood pressure was 106/53. Cardiovascular System: Jugular venous pressure was normal. First and second heart sounds were heard. There was bilateral expiratory wheeze. Abdomen: Obese, soft, nontender. There was no guarding or rigidity. Bowel sounds were heard. Central nervous system: Alert, oriented. Was moving extremities. He had a [id number] amputation. LABORATORY EXAMINATION: Revealed WBC 11, hemoglobin and hematocrit are 13 and 39, platelet 239,000. Sodium 135, BUN 16, creatinine 0.9. Troponins were negative. ProBNP 488. Electrocardiogram: Normal sinus rhythm, nonspecific ST-T changes. ASSESSMENT AND PLAN: Mr. Raul Hutton is a 71-year-old gentleman with chronic obstructive pulmonary disease, diabetes, cad, PVD, hypertension, obesity, amputation in the past, is admitted with recurrent cough with some expectoration. He also has obstructive sleep apnea, on CPAP. He also complains of chest pain. His cardiac enzymes were negative. PLAN: 1. On examination he has bilateral expiratory wheeze and symptomatically compared to yesterday he says his shortness of breath and cough is better. We will get a CT scan with contrast to make sure there is no ongoing pneumonia to account for his symptoms. 2. From a cardiac standpoint, we will get an echocardiogram to assess cardiac and valvular function. 3. We will get a resting scan today and a Cardiolite stress test in the morning. He has known CAD with occluded RCA by cath in 2011. 4. Continue with his medications for hypertension. 5. Continue with his medications for diabetes. 6. I have not made any other changes. As far as medications are concerned. Thank you for the consult. We will follow the hospital course. cc: Sunil Valles MD [facility]
--- NOTE | 2016-12-16 12:43 | Diag Imaging Result Document ---
PROCEDURE NAME: THORAX W/WO CONTRAST - 12/16/2016 CT CHEST WITHOUT AND WITH INTRAVENOUS CONTRAST: A CT dose reduction protocol was used. COMPARISON: 12/07/2016. FINDINGS: On the noncontrast exam, there is heavy calcified coronary artery disease particularly of the left anterior descending coronary artery. There is also severe vascular disease of the aorta and renal arteries. On the contrast-enhanced exam, there is some bronchial wall thickening mostly in the lower lobes, particularly the left side. This is compatible with extensive bronchitis. There is some linear atelectasis in the lower lobes and lingula. Otherwise, no new or focal infiltrates. No adenopathy. There are renal cysts bilaterally, otherwise, upper abdominal organs are grossly unremarkable. There is trace pericardial fluid, stable from prior. Heart size is, otherwise, normal. Advanced degeneration throughout the thoracic spine. Bony structures are intact. IMPRESSION: Worsening bronchitis in the lung bases particularly on the left side. Otherwise, little change from prior. [facility]
[2016-12-16] MEDS: PERFOROMIST NEB INH SCH ×2 (13:15→19:23)
--- NOTE | 2016-12-16 15:10 | PROGRESS NOTE ---
DATE: 12/16/2016 SUBJECTIVE: The patient has no focal complaints. Still difficulty breathing. OBJECTIVE: Vital Signs: Blood pressure 133/70, heart rate 78, respiratory rate 20, temperature 98.2 degrees, satting 95% on 2 L. Cardiovascular: Regular rate and rhythm. Pulmonary: He did have rhonchi and wheezing. GI: Soft, nontender, nondistended. Bowel sounds are positive. LABS AND X-RAYS: White count 10, hemoglobin and hematocrit 13 and 39, platelets 215. Chemistries: Blood sugars have been in the 300 range. PROBLEM LIST: 1. Recurrent chronic obstructive pulmonary disease exacerbation. He is on breathing treatments of Magdaleno-Dur, methylprednisolone which I am not going to wean today, Formoterol, and is still having breathing problems. 2. Chest pain. He is getting a cardiac workup including a Lexiscan tomorrow. Chest CT has been reordered and is showing worsening bronchitis. I am probably going to add some Rocephin to his azithromycin, and we will follow. I am going to get a pulmonary opinion as well since he has got recurrent chronic obstructive pulmonary disease issues. 3. Dyslipidemia. Continue regular medications. 4. Diabetes. We will monitor closely. He is not on any insulin at this point, but will get more hyperglycemic due to steroids. DISPOSITION: Pending his clinical course. cc: Srinath Louie MD
[2016-12-16] MEDS: PERCOCET-10 PO PRN (17:04)
[2016-12-16] MEDS: HUMULIN R SUBQ SCH ×2 (17:04→21:00)
[2016-12-16] MEDS: ROCEPHIN 1 GM/NS 1 GM/50 ML IVPB IV SCH (20:10)
[2016-12-16] MEDS: LIPITOR PO SCH (20:17)
[2016-12-17] MEDS: ZITHROMAX 500 MG/NS 500 MG/250 ML IVPB IV SCH (00:04)
[2016-12-17] MEDS: LOVENOX SUBQ SCH ×2 (00:04→22:05)
[2016-12-17] MEDS: DUONEB (A & A) INH SCH ×4 (04:32→20:18)
[2016-12-17] MEDS: SOLU-MEDROL IV SCH ×3 (04:54→20:02)
[2016-12-17] MEDS: PERCOCET-10 PO PRN ×2 (04:54→22:04)
[2016-12-17] MEDS: HUMULIN R SUBQ SCH ×4 (06:31→22:05)
[2016-12-17] MEDS: PERFOROMIST NEB INH SCH ×2 (07:18→20:17)
[2016-12-17 07:34] LABS: HEMATOCRIT 38.4 % (42.0-52.0); HEMOGLOBIN 12.7 g/dL (14.0-18.0); MCH 29.5 PG (27-31); MCHC 33.1 g/dL (33-37); MCV 89.1 FL (81-99); MPV 9.6 FL (7.4-10.4); RBC 4.31 XMIL (4.7-6.1)
[2016-12-17] MEDS ORDERED: LEXISCAN ONE (07:37)
[2016-12-17 07:45] LABS: AGAP 12; BUN 24 mg/dL (8-22); CALCIUM 9.2 mg/dL (8.8-10.2); CHLORIDE 105 mmol/L (98-107); COSMO 291; MAGNESIUM 1.9 mg/dL (1.5-2.7); POTASSIUM 4.1 mmol/L (3.5-5.1); SODIUM 138 mmol/L (136-145); TCO2 21 mmol/L (25-35)
[2016-12-17] MEDS: GLUCOTROL PO SCH ×2 (09:06→20:02)
[2016-12-17] MEDS: NEURONTIN PO SCH ×3 (09:07→17:03)
[2016-12-17] MEDS: COLACE PO SCH ×2 (09:07→20:02)
[2016-12-17] MEDS: THEO-24 PO SCH (09:07)
[2016-12-17] MEDS: LEXAPRO PO SCH (09:07)
[2016-12-17] MEDS: COREG PO SCH ×2 (09:07→20:02)
[2016-12-17] MEDS: TOPAMAX PO SCH ×2 (09:07→20:03)
[2016-12-17] MEDS: LASIX PO SCH (09:07)
[2016-12-17] MEDS: KLOR-CON PO SCH (09:07)
[2016-12-17] MEDS: ASPIRIN PO SCH (09:07)
[2016-12-17] MEDS: NICODERM PATCH TD SCH (09:07)
--- NOTE | 2016-12-17 09:15 | ECHO REPORT ---
ORDER DATE: 12/16/2016 INTERPRETING PHYSICIAN: Dr. Romero CLINICAL INDICATIONS: A 71-year-old male with chest pain, dizziness, coronary heart disease, hypertension, hyperlipidemia, and diabetes. M-MODE MEASUREMENTS: Right ventricle: 3.0 cm. Left ventricle end diastole: 5.1 cm. Left ventricle end systole: 3.2 cm. Posterior wall: 1.1 cm. Interventricular septum: 1.1 cm. Left atrium: 5.7 cm. Aortic root: 3.1 cm. SUMMARY OF 2-DIMENSIONAL IMAGIN. The left ventricular function is normal. The ejection fraction is estimated at 65% or better. 2. No wall motion abnormality is noted. 3. The study is technically difficult. 4. The right ventricle is at the upper limits of normal. 5. The aortic valve looks grossly normal. Color flow mapping unremarkable. 6. The mitral valve looks normal. Color flow mapping indicates a mild degree of regurgitation. The pulsed wave Doppler of mitral inflow is normal. Tissue Doppler of the septal and lateral mitral annulus averages 9 cm. Pulmonary venous flow is normal. There is no diastolic dysfunction. 7. The tricuspid valve shows a mild degree of regurgitation. The inferior vena cava is at the upper limits of normal. Pulmonary pressure is estimated at 44 mmHg. 8. The pulmonic valve is normal. Color flow mapping unremarkable. 9. There is no pericardial effusion, masses, nor thrombus. CONCLUSIONS: In summary, this study shows: 1. Normal/hyperdynamic left ventricle. 2. No evidence of any significant valvular abnormality. 3. No diastolic dysfunction. 4. Pulmonary pressure is elevated at 44 mmHg. Clinical correlation recommended. cc: MD Bonnie Gilliland PA
--- NOTE | 2016-12-17 10:13 | CONSULTATION ---
DATE OF CONSULTATION: 12/17/2016 REFERRING PHYSICIAN: Dr. Louie. CHIEF COMPLAINT: Shortness of breath. HISTORY OF PRESENT ILLNESS: This is a 71-year-old male with a past medical history of CAD, COPD, diabetes, hypertension, hyperlipidemia, and chronic vertigo that presented to the hospital with complaints of shortness of breath. He was admitted to the floor for a COPD exacerbation and started on antibiotics. Denies any fever, chills, cough, abdominal pain, nausea, vomiting, or diarrhea. REVIEW OF SYSTEMS: A 10-point review of systems was conducted. Pertinent is as noted in the HPI, otherwise noncontributory. PAST MEDICAL HISTORY: As mentioned in the HPI, otherwise noncontributory. PAST SURGERY HISTORY: Cataract surgery, multiple back surgeries, knee replacement, right AKA, cholecystectomy, and appendectomy. FAMILY HISTORY: Notable for CAD and diabetes. SOCIAL HISTORY: One pack per day smoker. Denies use of alcohol or illicit drugs. ALLERGIES: Codeine and vancomycin. PHYSICAL EXAMINATION: Vital Signs: Temperature 98.4, heart rate 69, respiratory rate 20, blood pressure 133/63, oxygen saturation 100%. General: Elderly, male, alert and oriented. No acute distress noted. HEENT: Normocephalic and atraumatic. PERRL. Cardiovascular: S1, S2 present. Regular rate and rhythm. Chest: Reduced entry. Abdomen: Soft. Bowel sounds present in all quadrants. Extremities: Distal pulses palpable. Neurologic: No focal deficits. ACTIVE MEDICATIONS: Tylenol, DuoNeb, Lipitor, Zithromax, Coreg, Rocephin, Colace, Lovenox, Lexapro, Lasix, Neurontin, Glucotrol, Humulin R, Solu-Medrol, NicoDerm, Zofran, Percocet, Klor-Con 24, Topamax, Desyrel. LABORATORY INVESTIGATIONS: WBC 20.1, RBC 4.31, hemoglobin 12.7, hematocrit 38.4, platelet count 231,000. Sodium 138, potassium 4.1, chloride 105, CO2 21, anion gap 12, BUN 24, creatinine 0.7, glucose 301. CT performed on 12/16/2016 shows worsening bronchitis. ASSESSMENT AND PLAN: This is a 71-year-old, male with a past medical history as mentioned in the history of present illness that presented to the hospital with complaints of shortness of breath. He is admitted for a chronic obstructive pulmonary disease exacerbation. He will continue to receive intravenous steroids, inhaled bronchodilators, broad-spectrum antibiotics, deep venous thrombosis prophylaxis. Further recommendations pending diagnostic studies. Thank you for the courtesy of this consult. Dictated by TAVO Mcbride for Chen Humphrey MD cc: TAVO Mcbride MD
--- NOTE | 2016-12-17 13:43 | Diag Imaging Result Document ---
PROCEDURE NAME: MYOCARDIAL PERF SCAN, STR/REST - 12/16/2016 DATE OF STUDY: 12/16/2016. INDICATION: Chest pain, shortness of breath. PROCEDURES PERFORMED: 1. Lexiscan stress. 2. Two-day stress/rest myocardial perfusion imaging. PROCEDURE IN DETAIL: Mr. Hutton was brought to the nuclear laboratory and had a resting study on the tenth with injection of 41.6 mCi of technetium-99m sestamibi with usual imaging protocol utilized. Subsequently, he was brought back and had a Lexiscan stress, and at peak stress, was injected with 40.7 mCi of technetium-99m sestamibi with usual imaging protocol utilized. FINDINGS: LEXISCAN STRESS RESULTS: 1. Baseline EKG shows sinus rhythm. 2. Lexiscan stress did not demonstrate any clear evidence of ischemic-related EKG changes or significant arrhythmias. PERFUSION IMAGING RESULTS: 1. No evidence of abnormal extracardiac uptake. 2. TID ratio 0.99. 3. Perfusion imaging shows a small size, mild intensity, fixed defect in the mid inferior and basal inferior segments. This defect improves somewhat from rest to stress suggesting soft tissue attenuation artifact. In addition, wall motion is intact in the affected area. There is no evidence of ischemia on this study. 4. Normal ejection fraction of 76%. End-diastolic volume 160, end-systolic volume of 38. Normal wall motion. cc: MD Bonnie Wong PA
[2016-12-17] MEDS ORDERED: MUCOMYST 20% INH ONE (13:56)
[2016-12-17] MEDS: MUCINEX PO SCH ×2 (15:31→20:00)
[2016-12-17] MEDS: LANTUS SUBQ SCH (15:34)
[2016-12-17] MEDS: ROCEPHIN 1 GM/NS 1 GM/50 ML IVPB IV SCH (19:57)
[2016-12-17] MEDS: LIPITOR PO SCH (20:00)
[2016-12-17] MEDS: DESYREL PO SCH (20:02)
[2016-12-17] MEDS: MUCOMYST 20% INH SCH (20:18)
[2016-12-17] MEDS ORDERED: HEPARIN ONE (20:38)
[2016-12-18] MEDS: ZITHROMAX 500 MG/NS 500 MG/250 ML IVPB IV SCH
[2016-12-18] MEDS: SOLU-MEDROL IV SCH ×3 (00:37→14:54)
[2016-12-18] MEDS: DUONEB (A & A) INH SCH ×3 (04:31→16:33)
[2016-12-18] MEDS: HUMULIN R SUBQ SCH ×2 (06:34→11:35)
[2016-12-18] MEDS: PERCOCET-10 PO PRN (06:36)
[2016-12-18 07:33] LABS: HEMATOCRIT 38.2 % (42.0-52.0); HEMOGLOBIN 12.7 g/dL (14.0-18.0); MCHC 33.2 g/dL (33-37); MCV 90.1 FL (81-99); MPV 9.6 FL (7.4-10.4); RBC 4.24 XMIL (4.7-6.1)
[2016-12-18 07:55] LABS: AGAP 11; BUN 21 mg/dL (8-22); CALCIUM 9.4 mg/dL (8.8-10.2); CHLORIDE 104 mmol/L (98-107); COSMO 288; POTASSIUM 4.1 mmol/L (3.5-5.1); SODIUM 138 mmol/L (136-145); TCO2 23 mmol/L (25-35)
[2016-12-18] MEDS: MUCINEX PO SCH (08:56)
[2016-12-18] MEDS: LANTUS SUBQ SCH (08:57)
[2016-12-18] MEDS: LEXAPRO PO SCH (08:57)
[2016-12-18] MEDS: TOPAMAX PO SCH (08:57)
[2016-12-18] MEDS: COLACE PO SCH (08:57)
[2016-12-18] MEDS: GLUCOTROL PO SCH (08:57)
[2016-12-18] MEDS: ASPIRIN PO SCH (08:57)
[2016-12-18] MEDS: NICODERM PATCH TD SCH (08:57)
[2016-12-18] MEDS: NEURONTIN PO SCH ×2 (08:57→13:13)
[2016-12-18] MEDS: LASIX PO SCH (08:57)
[2016-12-18] MEDS: THEO-24 PO SCH (08:57)
[2016-12-18] MEDS: KLOR-CON PO SCH (08:57)
[2016-12-18] MEDS: COREG PO SCH (08:57)
[2016-12-18] MEDS: MUCOMYST 20% INH SCH (10:31)
[2016-12-18] MEDS: PERFOROMIST NEB INH SCH (10:32)
[2016-12-18 17:14] VITALS: BP 141/65
[2016-12-19] MEDS ORDERED: SOLU-MEDROL IV SCH (03:00)
--- NOTE | 2016-12-25 06:19 | DISCHARGE SUMMARY ---
ADMISSION DATE: 12/15/2016 DISCHARGE DATE: 12/18/2016 DISCHARGE DIAGNOSES: 1. Chronic obstructive pulmonary disease exacerbation. 2. Bronchitis. 3. Atypical chest pain. 4. Dyslipidemia. 5. Diabetes. ADMISSION DIAGNOSES: 1. Chronic obstructive pulmonary disease exacerbation. 2. Atypical chest pain. CONSULTATIONS: Dr. Humphrey and Dr. Valles. HOSPITAL COURSE: Briefly, this is a 71-year-old male with recurrent COPD exacerbation admitted on the with shortness of breath. He was placed empirically on antibiotics, breathing treatments initially azithromycin. He had chronic dyspnea and dizziness so ENT was consulted but they recommended just follow up as an outpatient. Patient did have a chest CT done on the which showed worsening bronchitis on the left side but no adam pneumonia. He also had a myocardial perfusion scan which showed no reversible defects just a fixed defect. Normal EF. Echocardiogram showed no significant valvular abnormality. EF was 65%. Dr. Valles was consulted and felt that the process was likely atypical and that was not a cardiac issue primarily. Patient clinically improved on the . He still had some wheezing but overall stabilized on the . He had overall improved. He was felt stable for discharge on the and he requested to go home. We evaluated him for home O2 but he did not qualify. He has been evaluated the last 4 admissions for that and did not qualify. We will set him up with nocturnal O2 testing. DISCHARGE MEDICATIONS: 1. DuoNebs q. 6h. 2. Lipitor 40 daily. 3. Azithromycin 250 for five days. 4. Coreg 3.125 b.i.d. 5. Omnicef 300 p.o. b.i.d. for 7 days. 6. Docusate 100 p.r.n. 7. Lexapro 10 daily. 8. Advair 500/50 b.i.d. 9. Lasix 40 daily. 10. Neurontin 400 t.i.d. 11. Glucotrol 5 b.i.d. 12. Antivert 25 b.i.d. 13. Metformin 1 g b.i.d. 14. Prilosec 20 daily. 15. Percocet p.r.n. 16. Actos 45 daily. 17. Klor-Con 10 daily. 18. Prednisone taper. 19. Spiriva 4 daily. 20. Topamax 25 b.i.d. 21. Trazodone 300 at bedtime. DISCHARGE CONDITION: Stable. DISCHARGE TIME: 32 minutes. cc: MD Chen Iqbal MD
== END 2016-12-18 18:10 | disposition home health service (06) ==
LOC: ED 17:42 → 3N 23:07 → SUATTDRO 23:07
PROVIDERS: ATTEND Internal Medicine

== ENCOUNTER 2018-11-02 09:09 | Inpatient (IN) ==
--- NOTE | 2018-11-02 09:29 | PROVIDER DOCUMENTATION ---
HPI-Fever - General Stated Complaint: CONFUSION, BACK PAIN, MALE Time Seen by Provider: 11/02/18 09:12 Allergies/Adverse Reactions: Patient Allergies Allergy/AdvReac Type Severity Reaction Status Date / Time codeine AdvReac NAUSEA Verified 12/28/17 22:13 vancomycin AdvReac NAUSEA/VOMI Verified 12/28/17 22:13 TING Home Medications: Home Medication List Medication Instructions Recorded Confirmed Last Taken Type Pioglitazone HCl [Actos] 45 mg PO DAILY 08/24/12 12/28/17 12/28/17 History Furosemide [Lasix] 40 mg PO DAILY 08/08/14 12/28/17 12/28/17 History Omeprazole [Prilosec] 20 mg PO DAILY 06/24/15 12/28/17 12/28/17 History Potassium Chloride 1 tab PO DAILY 06/24/15 12/28/17 12/28/17 History Topiramate [Topamax] 25 mg PO BID 10/18/15 12/28/17 12/28/17 History Atorvastatin Calcium [Lipitor] 1 tab PO DAILY 10/16/16 12/28/17 12/28/17 History Trazodone HCl 2 tab PO QHS 10/16/16 12/28/17 12/27/17 History Meclizine HCl [Antivert] 1 tab PO BID PRN 10/23/16 12/28/17 03/09/17 History Gabapentin [Neurontin] 400 mg PO DIRECTED 03/09/17 12/28/17 12/28/17 History Ipratropium/Albuterol INH 1 puff INH RTQ6H 03/09/17 12/28/17 12/28/17 History [Combivent Respimat Inhaler] Metformin HCl [Glucophage] 1,000 mg PO BID 03/09/17 12/28/17 12/28/17 History Morphine Sulfate [Morphine Sulfate 30 mg PO BID 03/09/17 12/28/17 Unknown History Cr] Carvedilol [Coreg] 3.125 mg PO Q12HR #0 tablet 06/02/17 12/28/17 12/28/17 Rx Oxycodone I.r. [Oxy Ir] 10 mg PO Q6H PRN PRN #20 capsule 06/02/17 12/28/17 Unknown Rx Albuterol 2.5MG/Ipratrop 0.5MG 3 ml INH Q6H #120 neb 09/21/17 12/28/17 12/28/17 Rx [Duoneb (A & A)] Prednisone See Taper PO DAILY #30 tab 09/21/17 12/28/17 12/28/17 Rx Past History - Adult - PAST MEDICAL HISTORY-ADULT Major Childhood Illnesses: reports: denies history Cardiovascular: reports: HTN Respiratory: reports: asthma, COPD, sleep apnea Gastrointestinal: reports: denies history Obstetrical/Gynecological: reports: denies history Genitourinary: reports: denies history Musculoskeletal: reports: intervertebral disc disease Neurological: reports: denies history Endocrine/Immune: reports: Diabetes Other Conditions: reports: denies history - PRIOR SURGERIES/PROCEDURES Surgical/Procedure History: reports: appendectomy, cholecystectomy, tonsillectomy, orthopedic (extremity) (right AKA), joint replacement (bilateral knees x 3), back/neck, other (cataract surgery; right aka) - IMMUNIZATION STATUS Childhood Immunizations: See Nurse Assessment Flu Vaccine: See Nurse Assessment - FAMILY HISTORY Family History: reviewed, not pertinent Departure - Departure Referrals and Follow-Ups: Ace Warren MD [Primary Care Provider] -
[2018-11-02] MEDS ORDERED: DECADRON IV ONE (09:32)
[2018-11-02] MEDS ORDERED: DUONEB (A & A) INH ONE (09:40)
[2018-11-02] MEDS ORDERED: NS 500 ML IV ONE (09:55)
[2018-11-02] MEDS ORDERED: NS 500 ML ONE (09:57)
--- NOTE | 2018-11-02 10:04 | Diag Imaging Result Doc PS360 ---
CHEST-1 VIEW - 11/02/2018 INDICATION: sepsis COMPARISON: 12/28/2017 FINDINGS: The lungs are normally expanded and clear. Heart size and mediastinal contours are normal. No pneumothorax or pleural effusion. There is a stable pseudonodular opacity in the left upper lobe that is due to benign bony hypertrophy. IMPRESSION: Negative exam. Electronically signed by Martín Velez 11/02/2018 10:02 AM
[2018-11-02 10:14] LABS: URINE SOURCE CATH
[2018-11-02 10:16] LABS: BILIRUBIN URINE NEGATIVE (NEGATIVE); BLOOD URINE NEGATIVE (NEGATIVE); COLOR YELLOW; GLUCOSE URINE 300 mg/dL (NEGATIVE); KETONE URINE NEGATIVE (NEGATIVE); LEUKOCYTES URINE SMALL (NEGATIVE); NITRITE URINE NEGATIVE (NEGATIVE); PH URINE 7.5; PROTEIN URINE TRACE mg/dL (NEGATIVE); SP GRAVITY URINE 1.013; TURBIDITY URINE CLEAR (CLEAR); UROBILINOGEN URINE NORMAL (NORMAL)
[2018-11-02 10:18] LABS: UR EPITHELIAL CELLS <10 /HPF (<10); URINE BACTERIA NEGATIVE /HPF; URINE RBC <10 /HPF (<10)
[2018-11-02 10:21] LABS: BASO# 0.02 X1000 (0.0-0.2); BASO% 0.1 % (0.0-0.8); EOS# 0.03 X1000 (0.0-0.7); EOS% 0.1 % (0.0-10.0); HEMATOCRIT 37.2 % (42.0-52.0); HEMOGLOBIN 12.6 g/dL (14.0-18.0); IMM GRAN# 0.06 X1000 (0.0-0.04); IMM GRAN% 0.3 % (0.0-0.5); LYMPH% 3.8 % (20.5-51.1); MCH 30.6 PG (27-31); MCHC 33.9 g/dL (33-37); MCV 90.3 FL (81-99); MONO# 1.22 X1000 (0.11-0.59); MONO% 5.7 % (1.7-9.3); MPV 8.5 FL (7.4-10.4); NEUT# 19.19 X1000 (1.4-6.5); PLT 257 X1000 (130-400); RBC 4.12 XMIL (4.7-6.1); RDW 13.6 % (11.5-14.5); WBC 21.32 X1000 (4.8-10.8)
[2018-11-02 10:28] LABS: AGAP 12; ALB/GLOB RATIO 1.1; ALBUMIN 3.5 g/dL (3.5-5.0); ALKALINE PHOSPHATASE 83 U/L (32-122); BUN 14 mg/dL (8-22); CHLORIDE 104 mmol/L (98-107); CK PROFILE 36 U/L (24-204); COSMO 283; CREATININE 0.7 mg/dL (0.7-1.2); ESTIMATED GFR > 60; GLUCOSE 293 mg/dL (70-104); GOT 11 U/L (10-34); GPT 5 U/L (10-44); POTASSIUM 4.6 mmol/L (3.5-5.1); SODIUM 136 mmol/L (136-145); TCO2 20 mmol/L (25-35); TOTAL BILIRUBIN 0.24 mg/dL (0.20-1.00); TOTAL PROTEIN 6.8 g/dL (6.3-8.3)
[2018-11-02 10:44] LABS: INR 0.94; PROTIME 13.3 Seconds (11.0-16.0)
[2018-11-02 10:45] LABS: PTT 34.9 Seconds (22.3-41.8)
[2018-11-02 10:58] LABS: BANDS 6 % (0-1); LYMPHS 8 % (21-51); MONO 8 % (1-9); SEGS 78 % (42-75)
[2018-11-02] MEDS ORDERED: ROCEPHIN 1 GM in NS 50 ML IV SCH (11:00)
--- NOTE | 2018-11-02 11:11 | PROVIDER DOCUMENTATION ---
This chart was entered by Nelly Jett Scribe, acting as scribe for Maci Perez MD. HPI-Fever - General Chief Complaint: Altered Mental Status Stated Complaint: CONFUSION, BACK PAIN, MALE Time Seen by Provider: 11/02/18 09:12 Source: patient, EMS Allergies/Adverse Reactions: Patient Allergies Allergy/AdvReac Type Severity Reaction Status Date / Time codeine AdvReac NAUSEA Verified 12/28/17 22:13 vancomycin AdvReac NAUSEA/VOMI Verified 12/28/17 22:13 TING Home Medications: Home Medication List Medication Instructions Recorded Confirmed Last Taken Type Pioglitazone HCl [Actos] 45 mg PO DAILY 08/24/12 12/28/17 12/28/17 History Furosemide [Lasix] 40 mg PO DAILY 08/08/14 12/28/17 12/28/17 History Omeprazole [Prilosec] 20 mg PO DAILY 06/24/15 12/28/17 12/28/17 History Potassium Chloride 1 tab PO DAILY 06/24/15 12/28/17 12/28/17 History Topiramate [Topamax] 25 mg PO BID 10/18/15 12/28/17 12/28/17 History Atorvastatin Calcium [Lipitor] 1 tab PO DAILY 10/16/16 12/28/17 12/28/17 History Trazodone HCl 2 tab PO QHS 10/16/16 12/28/17 12/27/17 History Meclizine HCl [Antivert] 1 tab PO BID PRN 10/23/16 12/28/17 03/09/17 History Gabapentin [Neurontin] 400 mg PO DIRECTED 03/09/17 12/28/17 12/28/17 History Ipratropium/Albuterol INH 1 puff INH RTQ6H 03/09/17 12/28/17 12/28/17 History [Combivent Respimat Inhaler] Metformin HCl [Glucophage] 1,000 mg PO BID 03/09/17 12/28/17 12/28/17 History Morphine Sulfate [Morphine Sulfate 30 mg PO BID 03/09/17 12/28/17 Unknown History Cr] Carvedilol [Coreg] 3.125 mg PO Q12HR #0 tablet 10/25/17 05/22/18 05/22/18 Rx Oxycodone I.r. [Oxy Ir] 10 mg PO Q6H PRN PRN #20 capsule 06/02/17 12/28/17 Unknown Rx Albuterol 2.5MG/Ipratrop 0.5MG 3 ml INH Q6H #120 neb 09/21/17 12/28/17 12/28/17 Rx [Duoneb (A & A)] Prednisone See Taper PO DAILY #30 tab 09/21/17 12/28/17 12/28/17 Rx - History of Present Illness-Fever Nature of Presenting Problem: 73 yowm presents to the ed from snf which had done imaging and labs which came back normal. [facility] did not do a UA and request one be done. pt c/o lumbar pain dysuria and "I just don't feel good" Fever Severity/Quality: reports: low grade (99.7) Onset/Duration: reports: gradual Timing: reports: still present Severity: reports: moderate Context: reports: none Recent Illness?: reports: none Fever Therapy HEADING SAW OPERATOR: Initiated Ibuprofen Cognitive Baseline: alert but confused Modifying Factors: improves with: nothing Associated Symptoms: reports: back/neck pain (lumbar), genitourinary problems (dysuria), loss of appetite, malaise, other (confusion). denies: chest pain, diarrhea, shortness of breath, vomiting Similar Symptoms Previously?: Yes Recently seen or treated by another doctor?: No - Glascow Coma Score Best Eye Response (Toni): (3) open to voice Best Verbal Response (Toni): (4) confused conversation Best Motor Response ([place]): (6) obeys commands [place] Total: 13 Review of Systems - Adult - REVIEW OF SYSTEMS - ADULT Constitutional: reports: see HPI, chills, fever Eyes: reports: no symptoms reported Ears, Nose, Mouth & Throat: reports: no symptoms reported Cardiovascular: denies: chest pain, palpitations Respiratory: reports: see HPI. denies: shortness of breath, wheezing Gastrointestinal: denies: hematemesis, diarrhea, nausea, vomiting Genitourinary: reports: no symptoms reported Musculoskeletal: reports: see HPI, back pain. denies: neck pain Integumentary: reports: no symptoms reported Neurological: reports: see HPI, other (confusion). denies: dizziness/vertigo, headache/migraines Psychiatric: reports: no symptoms reported Endocrine: reports: no symptoms reported Hematologic/Lymphatic: reports: no symptoms reported Allergic/Immunologic: reports: no symptoms reported All Other Systems: Reviewed and Negative Past History - Adult - PAST MEDICAL HISTORY-ADULT Review of Records: reports: Old Records Reviewed, Nursing Assessment Review, Medications Reviewed, Social history reviewed & non-contributory. Major Childhood Illnesses: reports: denies history Cardiovascular: reports: HTN Respiratory: reports: asthma, COPD, sleep apnea Gastrointestinal: reports: denies history Genitourinary: reports: denies history Musculoskeletal: reports: chronic pain, intervertebral disc disease Hand Dominance: Right Handed Neurological: reports: denies history Psychiatric: reports: anxiety, depression Endocrine/Immune: reports: Diabetes Other Conditions: reports: denies history - PRIOR SURGERIES/PROCEDURES Surgical/Procedure History: reports: appendectomy, cholecystectomy, tonsillectomy, orthopedic (extremity) (right AKA), joint replacement (bilateral knees x 3), back/neck, other (cataract surgery; right aka) - IMMUNIZATION STATUS Childhood Immunizations: See Nurse Assessment Flu Vaccine: See Nurse Assessment - FAMILY HISTORY Family History: reviewed, not pertinent - SOCIAL HISTORY Smoking: cigarettes, less than 1 pack/day Provider spent 3-5 mins advising pt. on dangers of tobacco.: Discussed manners to quit use, and f/u contacts for add'l counseling. Substance Use: denies Living Situation: care facility Physical Exam-General - PHYSICAL EXAM-ADULT Initial Vital Signs Reviewed: Yes (temp 99.7/HR 105/RR 26/BP 148/75) - CONSTITUTIONAL General Appearance: alert, no apparent distress - EYES Eyes: PERRL/EOMI, pale conjunctivae - HEAD, EARS, NOSE, MOUTH & THROAT HENMT: negative: moist mucous membranes (dry oral) - NECK Neck: non-tender, full range of motion, normal inspection - RESPIRATORY Respiratory: chest non-tender, wheezing, increased rate (26) - CARDIOVASCULAR Cardiovascular: normal peripheral pulses, tachycardia (105) - GASTROINTESTINAL (ABDOMEN) Abdominal Exam: normal bowel sounds, non tender, soft - GENITOURINARY Male Genitalia: deferred Rectal Exam: deferred Hemoccult Exam: deferred - LYMPHATIC Lymphatic: no adenopathy - MUSCULOSKELETAL Back Exam: normal inspection Extremity: no calf tenderness, normal capillary refill, pelvis stable, other (RBKA) - SKIN Integumentary: normal color, warm/dry. negative: normal turgor (poorr skin turgor due to dehydration) - PSYCHIATRIC Psych/Mental Status: other (somsomnolent) Progress - PLAN OF CARE/RESULTS Progress/Plan/Lab Results: Vital Signs - 8 hr 11/02/18 09:19 11/02/18 09:20 11/02/18 09:30 Temperature Pulse Rate 106 H 107 H 111 H Respiratory Rate 25 H 29 H 31 H Blood Pressure 148/75 O2 Sat by Pulse Oximetry 97 97 96 11/02/18 09:32 11/02/18 09:44 11/02/18 10:00 Temperature 99.7 F H Pulse Rate 113 H 105 H 111 H Respiratory Rate 35 H 26 H 31 H Blood Pressure 140/82 148/75 O2 Sat by Pulse Oximetry 96 97 98 11/02/18 10:02 11/02/18 10:30 11/02/18 10:32 Temperature Pulse Rate 112 H 104 H 102 H Respiratory Rate 22 16 25 H Blood Pressure 158/85 148/75 O2 Sat by Pulse Oximetry 99 98 98 Laboratory Results - last 24 hr 11/02/18 11/02/18 11/02/18 09:30 09:33 09:33 WBC 21.32 H RBC 4.12 L Hgb 12.6 L Hct 37.2 L MCV 90.3 MCH 30.6 MCHC 33.9 RDW Std Deviation 13.6 Plt Count 257 MPV 8.5 Immature Gran % (Auto) 0.3 Neut % (Auto) 90.0 H Lymph % (Auto) 3.8 L [place] % (Auto) 5.7 Eos % (Auto) 0.1 Baso % (Auto) 0.1 Immature Gran # (Auto) 0.06 H Neut # (Auto) 19.19 H Lymph # (Auto) 0.80 L [place] # (Auto) 1.22 H Eos # (Auto) 0.03 Baso # (Auto) 0.02 Segmented Neutrophils 78 H Band Neutrophils 6 H Lymphocytes 8 L Monocytes 8 PT INR PTT (Actin FS) Specimen Type Sample Site pH pCO2 pO2 HCO3 Base Excess Oxyhemoglobin ABG O2 Sat (Calculated) ABG O2 Saturation ABG Carboxyhemoglobin ABG Methemoglobin Viany Test A-a O2 Difference Total Hemoglobin Lactate Liter Flow Blood Gas Modality FiO2 % Sodium 136 Potassium 4.6 Chloride 104 Carbon Dioxide 20 L Anion Gap 12 BUN 14 Creatinine 0.7 Estimated GFR/1.73 m2 > 60 BUN/Creatinine Ratio 20 Glucose 293 H POC Glucose 228 H Calculated Osmolality 283 Calcium 9.0 Total Bilirubin 0.24 AST 11 ALT 5 L Alkaline Phosphatase 83 Creatine Kinase 36 Troponin T Total Protein 6.8 Albumin 3.5 Globulin 3.3 Albumin/Globulin Ratio 1.1 Plasma Lactate Urine Source Urine Color Urine Turbidity Urine pH Ur Specific [place] Urine Protein Ur Glucose (Stick) Ur Ketones (Stick) Urine Blood Urine Nitrite Urine Bilirubin Urobilinogen Dipstick Urine Leukocytes Urine WBC (Auto) Urine RBC (Auto) U Epithel Cells (Auto) Urine Bacteria (Auto) 11/02/18 11/02/18 11/02/18 09:33 09:33 09:33 WBC RBC Hgb Hct MCV MCH MCHC RDW Std Deviation Plt Count MPV Immature Gran % (Auto) Neut % (Auto) Lymph % (Auto) [place] % (Auto) Eos % (Auto) Baso % (Auto) Immature Gran # (Auto) Neut # (Auto) Lymph # (Auto) [place] # (Auto) Eos # (Auto) Baso # (Auto) Segmented Neutrophils Band Neutrophils Lymphocytes Monocytes PT 13.3 INR 0.94 PTT (Actin FS) 34.9 Specimen Type Sample Site pH pCO2 pO2 HCO3 Base Excess Oxyhemoglobin ABG O2 Sat (Calculated) ABG O2 Saturation ABG Carboxyhemoglobin ABG Methemoglobin Vinay Test A-a O2 Difference Total Hemoglobin Lactate Liter Flow Blood Gas Modality FiO2 % Sodium Potassium Chloride Carbon Dioxide Anion Gap BUN Creatinine Estimated GFR/1.73 m2 BUN/Creatinine Ratio Glucose POC Glucose Calculated Osmolality Calcium Total Bilirubin AST ALT Alkaline Phosphatase Creatine Kinase Troponin T < 0.010 Total Protein Albumin Globulin Albumin/Globulin Ratio Plasma Lactate 1.6 Urine Source Urine Color Urine Turbidity Urine pH Ur Specific [place] Urine Protein Ur Glucose (Stick) Ur Ketones (Stick) Urine Blood Urine Nitrite Urine Bilirubin Urobilinogen Dipstick Urine Leukocytes Urine WBC (Auto) Urine RBC (Auto) U Epithel Cells (Auto) Urine Bacteria (Auto) 11/02/18 11/02/18 10:04 11:03 WBC RBC Hgb Hct MCV MCH MCHC RDW Std Deviation Plt Count MPV Immature Gran % (Auto) Neut % (Auto) Lymph % (Auto) [place] % (Auto) Eos % (Auto) Baso % (Auto) Immature Gran # (Auto) Neut # (Auto) Lymph # (Auto) [place] # (Auto) Eos # (Auto) Baso # (Auto) Segmented Neutrophils Band Neutrophils Lymphocytes Monocytes PT INR PTT (Actin FS) Specimen Type ARTERIAL Sample Site R RADIAL pH 7.38 pCO2 32 L pO2 75 HCO3 20.7 Base Excess -5.3 L Oxyhemoglobin 94.1 L ABG O2 Sat (Calculated) 16.7 ABG O2 Saturation 97.5 ABG Carboxyhemoglobin 2.20 ABG Methemoglobin 1.3 Vinay Test YES A-a O2 Difference 85.0 Total Hemoglobin 12.6 Lactate 1.20 Liter Flow 2.0 Blood Gas Modality CANNULA FiO2 % 28.0 Sodium Potassium Chloride Carbon Dioxide Anion Gap BUN Creatinine Estimated GFR/1.73 m2 BUN/Creatinine Ratio Glucose POC Glucose Calculated Osmolality Calcium Total Bilirubin AST ALT Alkaline Phosphatase Creatine Kinase Troponin T Total Protein Albumin Globulin Albumin/Globulin Ratio Plasma Lactate Urine Source CATH Urine Color YELLOW Urine Turbidity CLEAR Urine pH 7.5 Ur Specific [place] 1.013 Urine Protein TRACE A Ur Glucose (Stick) 300 A Ur Ketones (Stick) NEGATIVE Urine Blood NEGATIVE Urine Nitrite NEGATIVE Urine Bilirubin NEGATIVE Urobilinogen Dipstick NORMAL Urine Leukocytes SMALL A Urine WBC (Auto) 10-20 A Urine RBC (Auto) <10 U Epithel Cells (Auto) <10 Urine Bacteria (Auto) NEGATIVE Orders Category Date Time Status Cardiac Monitoring DIRECTED Care 11/02/18 09:31 Active IV Insertion ORDERED Care 11/02/18 09:31 Completed Notify MD of + Sepsis Screen NOW Care 11/02/18 09:31 Active Notify Physician As Ordered Care 11/02/18 09:31 Active Update & Confirm Home Medicati ROUTINE Care 11/02/18 10:56 Active CHEST-1 VIEW [RAD] Stat Exams 11/02/18 09:31 Completed ABG [RESP] Routine Lab 11/02/18 11:03 Completed BLOOD CULTURE [BLDCUL] Stat Lab 11/02/18 09:33 Results CBC WITH DIFF [HEME] Stat Lab 11/02/18 09:33 Completed CK PROFILE [SP CHEM] Stat Lab 11/02/18 09:33 Completed COMPREHENSIVE METABOLIC PANEL [CHEM] Stat Lab 11/02/18 09:33 Completed LACTATE, PLASMA [CHEM] Lab 11/02/18 09:33 Completed LACTATE, PLASMA [CHEM] Lab 11/02/18 12:45 Uncollected LACTATE, PLASMA [CHEM] Lab 11/02/18 15:45 Uncollected PROTIME WITH INR [COAG] Stat Lab 11/02/18 09:33 Completed PTT [COAG] Stat Lab 11/02/18 09:33 Completed TROPONIN T Stat Lab 11/02/18 09:33 Completed URINALYSIS W/POSS RFLX CULT [URINALYSIS] Stat Lab 11/02/18 10:04 Completed URINE CULTURE [RM] Routine Lab 11/02/18 10:59 Received 0.9% Sodium Chloride Inj [Ns] 500 ml Med 11/02/18 09:57 Discontinued .ROUTE As directed 0.9% Sodium Chloride Inj [Ns] 500 ml Med 11/02/18 09:55 Discontinued IV 999 mls/hr Albuterol 2.5MG/Ipratrop 0.5MG [Duoneb (A & A)] Med 11/02/18 09:40 Discontinued 3 ml INH NOW ONE CefTRIAXONE [Rocephin] 1 gm Med 11/02/18 11:00 Active 0.9% Sodium Chloride Inj [Ns] 50 ml IV Q24H Dexamethasone [Decadron] Med 11/02/18 09:32 Discontinued 10 mg IV NOW ONE Aerosol Treatments Routine Oth 11/02/18 09:40 Completed Aerosol Treatments Stat Oth 11/02/18 09:40 Completed Oxygen Device Stat Oth 11/02/18 09:31 Completed Result Diagrams: 11/02/18 09:33 11/02/18 09:33 - EKG 1 Time of EKG reading by physician:: 09:29 EKG Read and Signed by:: Maci Perez EKG Interpretation (*Must complete 3 of following elements*): Abnormal Rate: 111 Rhythm: sinus tachycardia [place]: left QRS: other (pulmonary disease pattern) DE Interval: normal ST Wave: normal Comments: septal infarct, age undetermined - XRAY 1 XRAY: Bilateral XRAY Study: Chest Impression: Normal ( CHEST-1 VIEW - 11/02/2018 INDICATION: sepsis COMPARISON: 12/28/2017 FINDINGS: The lungs are normally expanded and clear. Heart size and mediastinal contours are normal. No pneumothorax or pleural effusion. There is a stable pseudonodular opacity in the left upper lobe that is due to benign bony hypertrophy. IMPRESSION: Negative exam. Electronically signed by Martín Velez 11/02/2018 10:02 AM 11/02/18 1002 Interpreting Physician: Martín Velez MD Dictated Date/Time: 11/02/18 0959 cc: Maci Perez MD; Ace Warren MD) - CONSULTS/PCP/HOSPITALIST Notification #1 *Consult/PCP/Hospitalist*: Pratima Time Discussed: 10:55 Consult Disposition: Admit Departure - Departure Date of Disposition Decision: 11/02/18 Time of Disposition Decision: 10:55 DIAGNOSIS: COPD with acute exacerbation, Pneumonia Disposition: ADMITTED INPATIENT 09 Certified Medical Emergency: Emergent Condition: Good Referrals and Follow-Ups: Ace Warren MD [Primary Care Provider] - - Critical Care Note This patient required my direct & personal management of CC.: Yes Total Time (mins): 38 Critical Care Statement: This patient required my direct personal management to treat or rule out processes, the absence of which, could potentiallly result in sudden, clinically significant life or limb threatening deterioration. Attestation - Physician/ JORDY Attestation Patient care was provided by Advanced Practice Provider:: No The physician spent face to face time with patient:: Yes Advanced Practice Provider documentation review:: Supervising physician onsite and consulted in the evaluation and care of this patient. The physician did have a face to face encounter with the patient. This chart was documented by the indicated scribe, (Nelly Jett Scribe) and accurately reflects the services I performed and decisions made by me, Maci Perez MD, as attested by the provider's signature.
[2018-11-02 11:12] LABS: ALLEN TEST YES; BE -5.3 mmoll (-3.0-3.0); BLOOD TYPE ARTERIAL; HCO3-(ACT) 20.7 mmoll (20.0-26.0); METHB 1.3 % (0.0-1.5); O2(CT) 16.7 mL/dL (15.0-23.0); O2HB 94.1 % (95.0-99.0); PCO2(98.6) 32 mmHg (35-45); PO2(98.6) 75 mmHg (60-100); SAMPLE BLOOD; SAO2 97.5 % (95.0-100.0); THB 12.6 g/dL (11.5-17.4); pH(98.6) 7.38 (7.35-7.45)
[2018-11-02 11:13] LABS: MODALITY CANNULA
[2018-11-02] MEDS ORDERED: NS 1,000 ML IV ONE (11:39)
[2018-11-02] MEDS ORDERED: NICODERM PATCH TD ONE (11:53)
[2018-11-02] MEDS ORDERED: TYLENOL PO PRN (12:33)
[2018-11-02] MEDS ORDERED: ANTIVERT PO PRN (12:33)
[2018-11-02] MEDS ORDERED: LIORESAL PO PRN (12:33)
[2018-11-02] MEDS ORDERED: ZOFRAN IV PRN (12:33)
[2018-11-02] MEDS ORDERED: DUONEB (A & A) INH PRN (12:33)
--- NOTE | 2018-11-02 12:50 | EKG Report ---
Test Performed on : 11/02/2018 09:29:45 AM Test Reason : ED. NO EKG ORDER FOR MUSE Blood Pressure : / mmHG Vent. Rate : 111 BPM Atrial Rate : 111 BPM P-R Int : 152 ms QRS Dur : 088 ms QT Int : 322 ms P-R-T Axes : 100 -69 083 degrees QTc Int : 437 ms Sinus tachycardia. Left axis deviation Pulmonary disease pattern Septal infarct , age undetermined Abnormal ECG When compared with ECG of 20-SEP-2017 14:16, Nonspecific T wave abnormality now evident in Lateral leads Unconfirmed Result
--- NOTE | 2018-11-02 12:54 | Diag Imaging Result Doc PS360 ---
CT HEAD W/O CONTRAST - 11/02/2018 INDICATION: AMS COMPARISON: 05/17/2018 FINDINGS: The ventricles and sulci are normal in size and contour. No intracranial mass or hemorrhage. The skull is intact. The sinuses mastoids and middle ears are clear. IMPRESSION: Negative exam. This exam was performed using automated exposure control, adjustment of mA or kV according to patient size, and/or use of iterative reconstruction technique Electronically signed by Martín Velez 11/02/2018 12:52 PM
--- NOTE | 2018-11-02 13:10 | HISTORY AND PHYSICAL ---
ADDENDUM: I just got off the phone with Dr. Warren. Even though the patient is a retirement patient, his actual PCP is Dr. Warren so he will take over this patient on his service tomorrow morning. Dictated by TAVO Brooks for Nasir Ruiz MD cc: Nasir Ruiz MD
--- NOTE | 2018-11-02 13:16 | HISTORY AND PHYSICAL ---
PRIMARY CARE PROVIDER: Dr. Warren CHIEF COMPLAINT: Altered mental status, cough, fever. HISTORY OF PRESENT ILLNESS: Mr. Hutton is a 73-year-old male who is a resident of [facility] private patient of Dr. Warren. He has a past medical history of COPD on home O2, continues to smoke cigarettes, diabetes mellitus type 2, dyslipidemia, hypertension, and chronic vertigo, who reports some confusion. He is unsure why he is in the hospital. He is requesting to go back to the care home. He states he has been a little bit more short of breath than normal. His cough has also increased. He has had an increase in sputum production that is white in color. He believes that he has had some subjective fevers. He did have a CT of the chest done on 10/31/2018. Per patient, he did not know why he was having the CT of the chest done, but it showed mild emphysema and fibrosis and tiny infiltrate and an area of scarring anteriorly in the right lower lobe. In the ED, he was given IV steroids, initiated on IV antibiotics, given a liter bolus. The patient was tachycardic as well as tachypneic. He had an elevated white count. His urinalysis was negative. His lactate was normal at 1.6. He also complains of dry mouth and constipation. Denied any headache, dizziness, chest pain, nausea, vomiting, diarrhea, or dysuria. He did report back pain from the stretcher. We will admit him to the medical telemetry floor, broaden his antibiotics, give him another liter bolus and continue on IV hydration. We will recheck a chest x-ray in the a.m., go ahead and treat him for hospital-acquired pneumonia as the patient is from a care home, as well as continue treatment for COPD exacerbation with IV steroids and bronchodilators and aggressive pulmonary toilet. PAST MEDICAL HISTORY: 1. COPD on home O2. Patient continues to smoke. 2. Diabetes mellitus type 2. 3. Dyslipidemia. 4. Hypertension. 5. Chronic vertigo. PAST SURGICAL HISTORY: 1. Right [id number] amputation. 2. Right hip surgery repair. 3. Multiple back surgeries. 4. Carpal tunnel release. SOCIAL HISTORY: He is now a long-term resident and [facility]. He continues to smoke at least 2 cigarettes per day or he stated how many times they would let him go outside. He does carry a 25 pack-year history of smoking. No alcohol, no illicit drug use. ALLERGIES: Codeine which causes nausea. Vancomycin, nausea, vomiting. HOME MEDICATIONS: 1. DuoNeb 3 mL inhaled q.6 hours. 2. Lipitor 1 tab p.o. daily 40 mg. 3. Coreg 3.125 mg p.o. b.i.d. 4. Lasix 40 mg p.o. daily. 5. Neurontin 400 mg p.o. q.6 hours. 6. Combivent Respimat inhaler 1 puff inhaled RT q.6 hours. 7. Antivert 1 tab p.o. t.i.d. 8. Glucophage 1000 mg p.o. b.i.d. 9. Morphine sulfate 15 mg p.o. t.i.d. 10. Prilosec 20 mg p.o. daily. 11. OxyIR 10 mg p.o. b.i.d. 12. Potassium chloride 10 mEq p.o. daily. 13. Topamax 100 mg p.o. b.i.d. 14. Trazodone 100 mg p.o. at bedtime. 15. Baclofen 10 mg p.o. q.8 hours p.r.n. muscle spasms. 16. Cymbalta 60 mg p.o. daily. 17. Advair Diskus 250/50 Diskus 1 each inhaled b.i.d. 18. Linzess 145 mcg caplets 2 caps p.o. daily. 19. Losartan potassium 50 mg p.o. every other day. 20. Milk of Magnesia. 21. Melatonin 5 mg p.o. at bedtime. 22. MiraLAX 17 g p.o. daily. 23. Senna 8.6 mg p.o. b.i.d. REVIEW OF SYSTEMS: A 10 point review of systems complete and negative except for those mentioned in the HPI. PHYSICAL EXAMINATION: VITAL SIGNS: Temperature is 99.7 degrees, heart rate 102, respirations 25, blood pressure 148/75, O2 is 98% on 2 L nasal cannula. GENERAL: Mr. Hutton is a pleasant 73-year-old male who is sitting up on the stretcher in no acute distress, asking to go back to the care home because he states the bed is uncomfortable and causing him back pain. HEENT: Atraumatic, normocephalic. PERRL. Dry mucous membranes. NECK: Supple. Trachea midline. CARDIOVASCULAR: Regular rate and rhythm. No murmurs, gallops, or rubs noted. No JVD. The patient does have some 1+ edema pitting to the ankle area on the left. He has a right AKA. NEUROLOGIC: The patient is awake, alert, oriented to name, date of , place. However, he is unsure why he was brought to the ED. LABORATORY DATA: White count is 21, hemoglobin and hematocrit is 12 and 37, platelet count is 257,000. Sodium 136, potassium 4.6, BUN 14, creatinine 0.7, blood glucose was 293. Troponin was less than 0.010. Urinalysis was negative for bacteria, negative for nitrites. Did have small leukocytes and 10 to 20 WBCs. IMAGING: Chest x-ray was essentially normal. A CT scan he had performed on 10/31/2018 showed mild emphysema and fibrosis, tiny infiltrate or new area of scarring anteriorly in the right lower lobe. ASSESSMENT AND PLAN: 1. Probable right lower lobe pneumonia with chronic obstructive pulmonary disease exacerbation. The patient has been complaining of increasing shortness of breath, increasing cough with a white sputum production, as well as having wheezes. We will treat for both pneumonia and COPD. This will be hospital-acquired, he is a care home patient. We will also check a head CT to rule out any acute findings. Continue with frequent neuro checks and orientation. Again, patient is alert and oriented to name, date of and location, as well as he knows he lives at the care home. He is requesting to go back there secondary to uncomfortable stretcher in the ED. However, he does not know why he was brought to the ER. Per care home report, increased confusion and probable urinary tract infection. 2. Probable right lower lobe pneumonia as was seen on most recent CT scan back on 10/31/2018. The patient has been febrile, productive cough, increase in shortness of breath. We will broaden the spectrum of his antibiotics. We will continue with aggressive pulmonary toilet, bronchodilators. Blood cultures have been obtained. We will obtain a sputum culture and continue to track his lactate, it has been negative. 3. Chronic obstructive pulmonary disease exacerbation. Per ED report, the patient did have some wheezes; however, he did not have any wheezes upon my examination. The patient also reported having wheezes. We will continue with bronchodilators and aggressive pulmonary toilet. 4. Clinical dehydration. We will give the patient a 2nd fluid bolus and continue with IV fluids. Recheck his labs in the a.m. 5. Diabetes mellitus type 2. We will place him on patterned blood sugars and sliding scale insulin. 6. Hypertension. We will continue his home medications. 7. He appears to have chronic pain syndrome. We will continue his home pain regimen. He is complaining of back pain from the stretcher at this time. 8. Left lower extremity 1+ pitting edema. We will continue his Lasix tomorrow after he has been rehydrated. 9. Chronic constipation. We will continue his home medications. 10. Further recommendation to follow physician evaluation, laboratory, and diagnostic data. Dictated by TAVO Brooks for Nasir Ruiz MD ADDENDUM: DR. RODRIGUEZ PRIVATE PATIENT AND HE WILL RESUME CARE IN THE AM. cc: Nasir Ruiz MD Patient presenting altered mental status, cough, fever. Chest x-ray was essentially normal. A CT scan he had performed on 10/31/2018 showed mild emphysema and fibrosis, tiny infiltrate or new area of scarring anteriorly in the right lower lobe. I agree with the assessment and plan of the BOMB LOADER. Dr. Joseph ARORA
[2018-11-02] MEDS: ZOSYN 3.375 GM in NS 50 ML IV SCH ×2 (13:30→19:48)
[2018-11-02] MEDS: SOLU-MEDROL IV SCH ×2 (13:30→22:26)
[2018-11-02] MEDS: NS 1,000 ML IV SCH ×2 (13:30→22:26)
[2018-11-02] MEDS: ZYVOX 600 MG/D5W 600 MG/300 ML IVPB IV SCH (14:15)
[2018-11-02] MEDS: NEURONTIN PO SCH ×2 (14:56→22:32)
[2018-11-02] MEDS: MS CONTIN PO SCH ×2 (14:56→22:25)
[2018-11-02] MEDS: DUONEB (A & A) INH SCH ×3 (15:56→22:59)
[2018-11-02] MEDS: HUMALOG SUBQ SCH ×2 (16:40→22:26)
[2018-11-02] MEDS: LEVAQUIN 500 MG in NS 100 ML IV SCH (16:45)
[2018-11-02 17:18] LABS: HEMOGLOBIN A1C 7.7 % (4.8-6.0)
[2018-11-02] MEDS: ADVAIR 250/50 DISKUS INH SCH (19:30)
[2018-11-02] MEDS: OXY IR PO SCH (22:25)
[2018-11-02] MEDS: COREG PO SCH (22:25)
[2018-11-02] MEDS: TOPAMAX PO SCH (22:25)
[2018-11-02] MEDS: MELATONIN PO SCH (22:25)
[2018-11-02] MEDS: SENOKOT PO SCH (22:25)
[2018-11-02] MEDS: DESYREL PO SCH (22:26)
[2018-11-03] MEDS: NEURONTIN PO SCH ×4 (01:29→19:55)
[2018-11-03] MEDS: ZOSYN 3.375 GM in NS 50 ML IV SCH ×4 (01:29→18:55)
[2018-11-03] MEDS: ZYVOX 600 MG/D5W 600 MG/300 ML IVPB IV SCH ×2 (02:54→15:42)
[2018-11-03] MEDS: DUONEB (A & A) INH SCH ×6 (03:18→23:45)
[2018-11-03] MEDS: NS 1,000 ML IV SCH ×5 (03:43→21:43)
[2018-11-03] MEDS: SOLU-MEDROL IV SCH ×3 (04:17→19:55)
[2018-11-03] MEDS ORDERED: FLEET ENEMA PR ONE (06:32)
[2018-11-03] MEDS ORDERED: LINZESS PO ONE (06:33)
--- NOTE | 2018-11-03 06:51 | PROGRESS NOTE ---
DATE: 11/03/2018 SUBJECTIVE: Mr. Hutton is feeling better. He does have cough with scanty sputum production. No high-grade fever or chills. Denied any nausea or vomiting. Patient admitted with COPD exacerbation, altered mental status. The nurse called me from [facility] stating patient was confused, disoriented, not responding appropriately. They sent him to the emergency room. In the ER, the patient found to have leukocytosis with left shift. Blood gas results reviewed. Electrolytes were benign but blood sugar was elevated. Urinalysis did reveal 10 to 20 WBC, otherwise benign. Initial impression was COPD exacerbation and we decided to admit the patient for further care. The patient does have chronic pain on pain medication. He also has headache. No typical chest pain or palpitations. When I talked to patient this morning, the patient claims he remembers eating breakfast. He remember the EMS people came to take him to the hospital. PAST MEDICAL HISTORY: Significant for COPD, chronic respiratory failure, sleep apnea, osteoarthritis, patient has a right leg amputation, chronic headache. ADMISSION HISTORY AND PHYSICAL: Noted. Vital Signs: Reviewed. Neck: Supple. No JVD. Lungs: Bilateral good air entry present. Bilateral occasional wheezing. CVS: S1 and S2 heard. Abdomen: Soft, globular. Bowel sounds present. SENIOR PROJECT ACCOUNTANT: Alert, awake, answering questions fairly well. Able to move all 4 limbs. Extremities: The patient does have right able knee amputation. LABORATORY DATA: Admission lab data noted. CONSIDERATION: 1. COPD exacerbation. 2. Altered mental status. 3. Chronic pain. 4. IDDM. 5. Chronic headache. Patient have appointment to see neurologist on November 12. 6. Chronic constipation. 7. Gastritis and reflux disease. A.m. lab data are pending. Patient had leukocytosis on admission. The patient is on broad- spectrum antibiotics. The patient wants to go back to rehab. I am going to check today's labs. Advise, we will continue current treatment. Recheck appropriate lab again. Continue bronchodilator care. If clinical condition permits, we will plan discharging patient to rehab tomorrow. I am going to give him Fleet's enema today for his constipation. cc: Ace Warren MD
[2018-11-03] MEDS: HUMALOG SUBQ SCH ×4 (06:55→20:02)
--- NOTE | 2018-11-03 07:05 | Diag Imaging Result Doc PS360 ---
EXAM: CHEST-PORTABLE 11/03/2018 HISTORY: short of breath TECHNIQUE: AP portable at 0449 COMMENT: There is increased pulmonary vascularity and interstitial opacity consistent with pulmonary edema. This is worse than on the previous study of 11/02/2018. There is some blunting of the left costophrenic angle which was not previously present. The somewhat poorly defined rounded opacity in the left apex is again noted. IMPRESSION: Pulmonary edema. Atelectasis versus pneumonia left lower lobe. Electronically signed by Aj Johnson 11/03/2018 7:03 AM
[2018-11-03] MEDS: LINZESS PO SCH ×2 (07:25→09:30)
[2018-11-03 07:31] LABS: BASO# 0.01 X1000 (0.0-0.2); HEMATOCRIT 37.2 % (42.0-52.0); HEMOGLOBIN 12.4 g/dL (14.0-18.0); IMM GRAN# 0.09 X1000 (0.0-0.04); IMM GRAN% 0.4 % (0.0-0.5); LYMPH# 1.02 X1000 (1.2-3.4); LYMPH% 4.8 % (20.5-51.1); MCH 30.3 PG (27-31); MCHC 33.3 g/dL (33-37); MONO# 0.42 X1000 (0.11-0.59); MPV 8.8 FL (7.4-10.4); NEUT% 92.8 % (42.2-75.2); PLT 233 X1000 (130-400); RBC 4.09 XMIL (4.7-6.1); WBC 21.04 X1000 (4.8-10.8)
[2018-11-03 07:59] LABS: AGAP 12; ALB/GLOB RATIO 1.2; ALBUMIN 3.6 g/dL (3.5-5.0); ALKALINE PHOSPHATASE 84 U/L (32-122); BUN 14 mg/dL (8-22); CALCIUM 9.3 mg/dL (8.8-10.2); CHLORIDE 108 mmol/L (98-107); COSMO 290; CREATININE 0.6 mg/dL (0.7-1.2); ESTIMATED GFR > 60; GLUCOSE 340 mg/dL (70-104); GOT 8 U/L (10-34); GPT < 5 U/L (10-44); POTASSIUM 4.4 mmol/L (3.5-5.1); SODIUM 138 mmol/L (136-145); TCO2 18 mmol/L (25-35); TOTAL PROTEIN 6.5 g/dL (6.3-8.3)
[2018-11-03] MEDS: MUCOMYST 20% INH SCH ×2 (08:00→19:14)
[2018-11-03] MEDS: ADVAIR 250/50 DISKUS INH SCH ×2 (08:02→19:14)
[2018-11-03] MEDS ORDERED: CYMBALTA PO SCH (09:00)
[2018-11-03] MEDS: MIRALAX PO SCH (09:29)
[2018-11-03] MEDS: LIPITOR PO SCH (09:30)
[2018-11-03] MEDS: SENOKOT PO SCH ×2 (09:30→20:01)
[2018-11-03] MEDS: PRILOSEC PO SCH (09:30)
[2018-11-03] MEDS: OXY IR PO SCH ×2 (09:30→20:02)
[2018-11-03] MEDS: KLOR-CON PO SCH (09:30)
[2018-11-03] MEDS: TOPAMAX PO SCH ×2 (09:31→20:01)
[2018-11-03] MEDS: COREG PO SCH ×2 (09:31→20:01)
[2018-11-03] MEDS: MS CONTIN PO SCH ×3 (09:31→20:02)
[2018-11-03] MEDS: LEVAQUIN 500 MG in NS 100 ML IV SCH (19:55)
[2018-11-03] MEDS: MELATONIN PO SCH (20:01)
[2018-11-03] MEDS: DESYREL PO SCH (20:01)
[2018-11-04] MEDS: ZOSYN 3.375 GM in NS 50 ML IV SCH ×4 (00:24→18:33)
[2018-11-04] MEDS: ZYVOX 600 MG/D5W 600 MG/300 ML IVPB IV SCH ×2 (02:59→15:20)
[2018-11-04] MEDS: SOLU-MEDROL IV SCH (02:59)
[2018-11-04] MEDS: NEURONTIN PO SCH ×4 (02:59→20:52)
[2018-11-04] MEDS: NS 1,000 ML IV SCH ×4 (03:39→20:53)
[2018-11-04] MEDS: DUONEB (A & A) INH SCH ×5 (03:52→19:30)
[2018-11-04] MEDS: HUMALOG SUBQ SCH ×4 (06:14→20:53)
[2018-11-04] MEDS: LINZESS PO SCH (06:14)
--- NOTE | 2018-11-04 07:04 | PROGRESS NOTE ---
DATE: 11/04/2018 SUBJECTIVE: Mr. Hutton is doing fair. The patient is still have cough with expectoration which is yellowish. No high-grade fever, some shortness of breath and wheezing. No typical chest pain or palpitation. Complaining of problem with the food. No dysuria or hematuria. The patient did have good bowel movement yesterday with enema and Linzess. No heat or cold intolerance. No typical chest pain. Headache is better. Blood sugar is staying very high. The patient is on sliding scale insulin. No nausea or vomiting. OBJECTIVE: Vital Signs: Noted. Neck: Supple. No JVD. Lungs: Bibasilar crepitation. Occasional wheezing. CVS: S1 and S2 heard. Abdomen: Soft, globular. Bowel sounds present. Extremities: No cyanosis, clubbing. No acute DVT. INFANTRY SENIOR SERGEANT: Alert, awake, answering questions fairly well. The patient does have a right [id number] amputation. CONSIDERATION: 1. COPD exacerbation due to pneumonia. 2. Urinalysis did reveal UTI. Urine culture growing gram-negative rods. ID and sensitivity is pending. 3. Chronic pain. 4. Constipation improved. 5. Diabetes mellitus. I discontinued Solu-Medrol. I am going to give oral prednisone continue rest of the treatment and close observation. 6. Chronic pain on morphine. We will continue. 7. History of migraine headache. 8. Osteoarthritis. 9. Hypertension. MEDICATION: As noted. I started patient on Lantus and Glucophage today. We will monitor him for hypoglycemia overall. PLAN: Overall plan discussed with the patient and he is in agreement. I am going to watch patient over the weekend. If clinical condition permits, we will plan discharge on Wednesday. cc: Ace Warren MD
[2018-11-04 07:26] LABS: HEMATOCRIT 35.5 % (42.0-52.0); HEMOGLOBIN 11.8 g/dL (14.0-18.0); IMM GRAN# 0.06 X1000 (0.0-0.04); IMM GRAN% 0.3 % (0.0-0.5); LYMPH# 0.73 X1000 (1.2-3.4); LYMPH% 3.9 % (20.5-51.1); MCH 30.3 PG (27-31); MCHC 33.2 g/dL (33-37); MONO% 1.1 % (1.7-9.3); MPV 8.9 FL (7.4-10.4); NEUT# 17.82 X1000 (1.4-6.5); NEUT% 94.7 % (42.2-75.2); PLT 226 X1000 (130-400); WBC 18.81 X1000 (4.8-10.8)
[2018-11-04 07:43] LABS: LYMPHS 8 % (21-51); MONO 4 % (1-9); SEGS 88 % (42-75)
[2018-11-04 07:52] LABS: AGAP 8; ALB/GLOB RATIO 1.2; ALBUMIN 3.3 g/dL (3.5-5.0); ALKALINE PHOSPHATASE 77 U/L (32-122); BUN 15 mg/dL (8-22); CALCIUM 8.8 mg/dL (8.8-10.2); CHLORIDE 105 mmol/L (98-107); COSMO 284; CREATININE 0.6 mg/dL (0.7-1.2); ESTIMATED GFR > 60; GLUCOSE 397 mg/dL (70-104); GOT 5 U/L (10-34); GPT 5 U/L (10-44); MAGNESIUM 1.9 mg/dL (1.5-2.7); SODIUM 133 mmol/L (136-145); TCO2 20 mmol/L (25-35); TOTAL BILIRUBIN 0.18 mg/dL (0.20-1.00)
[2018-11-04] MEDS: MUCOMYST 20% INH SCH ×2 (07:52→19:30)
[2018-11-04] MEDS: ADVAIR 250/50 DISKUS INH SCH ×2 (07:53→19:30)
[2018-11-04] MEDS: TOPAMAX PO SCH ×2 (08:25→20:52)
[2018-11-04] MEDS: PREDNISONE PO SCH (08:25)
[2018-11-04] MEDS: KLOR-CON PO SCH (08:25)
[2018-11-04] MEDS: COZAAR PO SCH (08:25)
[2018-11-04] MEDS: SENOKOT PO SCH ×2 (08:25→20:53)
[2018-11-04] MEDS: MS CONTIN PO SCH ×3 (08:26→20:52)
[2018-11-04] MEDS: COREG PO SCH ×2 (08:26→20:52)
[2018-11-04] MEDS: LIPITOR PO SCH (08:26)
[2018-11-04] MEDS ORDERED: INSULIN PEN NEEDLES ONE (08:28)
[2018-11-04] MEDS: MIRALAX PO SCH (08:28)
[2018-11-04] MEDS: OXY IR PO SCH ×2 (08:29→20:52)
[2018-11-04] MEDS: BASAGLAR SUBQ SCH (08:29)
[2018-11-04] MEDS: LASIX PO SCH (08:32)
[2018-11-04] MEDS: PRILOSEC PO SCH (08:35)
[2018-11-04] MEDS ORDERED: BASAGLAR SUBQ SCH (09:00)
[2018-11-04] MEDS: MELATONIN PO SCH (20:52)
[2018-11-04] MEDS: GLUCOPHAGE XR PO SCH (20:53)
[2018-11-04] MEDS: DESYREL PO SCH (20:53)
[2018-11-04] MEDS: LEVAQUIN 500 MG in NS 100 ML IV SCH (20:53)
[2018-11-05] MEDS: DUONEB (A & A) INH SCH ×7 (00:04→23:21)
[2018-11-05] MEDS: NEURONTIN PO SCH ×5 (02:19→21:24)
[2018-11-05] MEDS: NS 1,000 ML IV SCH ×3 (02:24→16:18)
[2018-11-05] MEDS: ZOSYN 3.375 GM in NS 50 ML IV SCH ×5 (04:15→21:23)
[2018-11-05] MEDS: ZYVOX 600 MG/D5W 600 MG/300 ML IVPB IV SCH (05:41)
[2018-11-05] MEDS: LINZESS PO SCH (06:17)
[2018-11-05] MEDS: HUMALOG SUBQ SCH ×4 (06:17→20:01)
[2018-11-05] MEDS: MUCOMYST 20% INH SCH ×2 (07:50→20:30)
[2018-11-05] MEDS: ADVAIR 250/50 DISKUS INH SCH ×2 (07:50→20:30)
--- NOTE | 2018-11-05 08:41 | PROGRESS NOTE ---
DATE: 11/05/2018 SUBJECTIVE: Mr. Hutton is feeling better. He still has cough with expectorant. No high-grade fever, chills. No chest pain. Does get short of breath at times. No nausea or vomiting. Denied any dysuria. Oral intake is fair. OBJECTIVE: Vital signs: Blood pressure 127/57, pulse 70, respiration 15, temperature 98.3 degrees. Skin: Senile turgor. No rash or petechiae. HEENT: Head atraumatic, normocephalic. [place] conjunctivae. Anicteric sclerae. Extraocular muscle movement normal. Fundus cannot be penetrated. Good oral hygiene. No tonsillopharyngeal congestion or exudate. Ears and nose benign. Neck: Supple. No JVD. Lungs: Bibasilar crepitations. Heart: S1 and S2 heard. Abdomen: Soft, globular. Bowel sounds present. DISEASE MANAGEMENT NURSE: Alert, awake. Able to move all 4 limbs. Patient does have right above-knee amputation. ASSESSMENT: The patient's medical problems includes 1. Chronic obstructive pulmonary disease exacerbation, chronic respiratory failure. I am going to continue current treatment. Pulmonary toilet. Close observation. 2. Urinary tract infection. Urine culture grew Pseudomonas which is sensitive to Levaquin. 3. Chronic pain. On pain medicine. 4. Constipation. 5. Gastritis, and reflux disease. 6. Diabetes mellitus. Blood sugar results reviewed. I started patient on metformin and Lantus yesterday. Will monitor Accu-Chek. Watch patient for hypoglycemia. His leukocyte count done yesterday did show some improvement. PLAN: Overall plan discussed at length with the patient. Plan is to discharge patient to rehab on Wednesday. cc: Ace Warren MD
[2018-11-05] MEDS: MIRALAX PO SCH (08:58)
[2018-11-05] MEDS: LIPITOR PO SCH (08:59)
[2018-11-05] MEDS: OXY IR PO SCH ×3 (08:59→21:22)
[2018-11-05] MEDS: COREG PO SCH ×3 (08:59→21:22)
[2018-11-05] MEDS: LASIX PO SCH (09:00)
[2018-11-05] MEDS: SENOKOT PO SCH ×3 (09:00→21:24)
[2018-11-05] MEDS: PREDNISONE PO SCH (09:01)
[2018-11-05] MEDS: GLUCOPHAGE XR PO SCH (09:01)
[2018-11-05] MEDS: TOPAMAX PO SCH ×3 (09:01→21:23)
[2018-11-05] MEDS: MS CONTIN PO SCH ×4 (09:01→21:22)
[2018-11-05] MEDS: PRILOSEC PO SCH (09:01)
[2018-11-05] MEDS: KLOR-CON PO SCH (09:02)
[2018-11-05] MEDS: BASAGLAR SUBQ SCH (09:08)
[2018-11-05] MEDS: MELATONIN PO SCH ×2 (19:50→21:24)
[2018-11-05] MEDS: DESYREL PO SCH ×2 (19:51→21:24)
[2018-11-05] MEDS: LEVAQUIN 500 MG in NS 100 ML IV SCH (21:15)
[2018-11-06] MEDS: NEURONTIN PO SCH ×4 (04:28→20:26)
[2018-11-06] MEDS: ZOSYN 3.375 GM in NS 50 ML IV SCH ×4 (05:30→20:27)
[2018-11-06] MEDS: DUONEB (A & A) INH SCH ×6 (05:52→23:30)
[2018-11-06] MEDS: LINZESS PO SCH ×2 (06:31→06:34)
[2018-11-06] MEDS: HUMALOG SUBQ SCH ×4 (06:31→20:27)
[2018-11-06 07:22] LABS: BASO# 0.01 X1000 (0.0-0.2); BASO% 0.1 % (0.0-0.8); EOS# 0.23 X1000 (0.0-0.7); EOS% 2.7 % (0.0-10.0); HEMATOCRIT 37.1 % (42.0-52.0); HEMOGLOBIN 12.6 g/dL (14.0-18.0); IMM GRAN# 0.03 X1000 (0.0-0.04); IMM GRAN% 0.4 % (0.0-0.5); LYMPH# 2.57 X1000 (1.2-3.4); LYMPH% 30.5 % (20.5-51.1); MCH 30.6 PG (27-31); MONO# 0.46 X1000 (0.11-0.59); MONO% 5.5 % (1.7-9.3); MPV 8.7 FL (7.4-10.4); NEUT# 5.12 X1000 (1.4-6.5); NEUT% 60.8 % (42.2-75.2); PLT 249 X1000 (130-400); RBC 4.12 XMIL (4.7-6.1); RDW 14.2 % (11.5-14.5); WBC 8.42 X1000 (4.8-10.8)
--- NOTE | 2018-11-06 07:51 | Diag Imaging Result Doc PS360 ---
EXAM: CHEST-PORTABLE HISTORY: dyspnea TECHNIQUE: Portable chest single view COMPARISON: 11/03/2018 FINDINGS: The lungs are well expanded. The heart is not enlarged. There are mild increased interstitial markings in both lungs. No consolidation. No pleural effusions identified. IMPRESSION: Mild decrease in the pulmonary edema. Electronically signed by Chet Hinton 11/06/2018 7:48 AM
[2018-11-06 07:52] LABS: AGAP 11; ALB/GLOB RATIO 1.1; ALBUMIN 3.2 g/dL (3.5-5.0); ALKALINE PHOSPHATASE 62 U/L (32-122); BUN 12 mg/dL (8-22); CALCIUM 8.7 mg/dL (8.8-10.2); CHLORIDE 108 mmol/L (98-107); COSMO 289; CREATININE 0.6 mg/dL (0.7-1.2); ESTIMATED GFR > 60; GLUCOSE 178 mg/dL (70-104); GOT 9 U/L (10-34); GPT 9 U/L (10-44); MAGNESIUM 1.9 mg/dL (1.5-2.7); POTASSIUM 3.9 mmol/L (3.5-5.1); SODIUM 143 mmol/L (136-145); TCO2 24 mmol/L (25-35); TOTAL BILIRUBIN 0.38 mg/dL (0.20-1.00)
[2018-11-06] MEDS: MUCOMYST 20% INH SCH ×2 (07:57→19:40)
[2018-11-06] MEDS: ADVAIR 250/50 DISKUS INH SCH ×2 (07:58→19:40)
[2018-11-06] MEDS: GLUCOPHAGE XR PO SCH (08:56)
[2018-11-06] MEDS: KLOR-CON PO SCH (08:56)
[2018-11-06] MEDS: PREDNISONE PO SCH (08:56)
[2018-11-06] MEDS: COREG PO SCH ×2 (08:56→20:26)
[2018-11-06] MEDS: LIPITOR PO SCH (08:56)
[2018-11-06] MEDS: COZAAR PO SCH (08:56)
[2018-11-06] MEDS: BASAGLAR SUBQ SCH (08:57)
[2018-11-06] MEDS: OXY IR PO SCH ×2 (08:57→20:27)
[2018-11-06] MEDS: TOPAMAX PO SCH ×2 (08:57→20:26)
[2018-11-06] MEDS: MS CONTIN PO SCH ×3 (08:57→20:27)
[2018-11-06] MEDS: PRILOSEC PO SCH (08:57)
[2018-11-06] MEDS: LASIX PO SCH (08:58)
[2018-11-06] MEDS: MIRALAX PO SCH (08:58)
[2018-11-06] MEDS: SENOKOT PO SCH (08:59)
--- NOTE | 2018-11-06 14:18 | PROGRESS NOTE ---
DATE: 11/06/2018 VITAL SIGNS: Temperature 98.3 degrees, heart rate 72, respirations 21, blood pressure 131/74, O2 saturation 100% on 2 liters nasal oxygen. LABORATORY: Hemoglobin 12.6, hematocrit 37.1, white blood count 8400, with normal differential. Sodium 143, potassium 3.9, BUN 12, creatinine 0.6, glucose 249, magnesium 1.9. AST 9, ALT 9, alkaline phosphatase 62, total protein 6.0, albumin 3.2. ASSESSMENT: The patient is clinically improving and feels less short of breath. He has a mild cough. He is eating fairly well. He has a right leg amputation and resides at [facility]. He should be able to return tomorrow on some oral antibiotics. He was found to have a urinary tract infection. He is currently receiving Levaquin 500 mg intravenous every 24 hours. PLAN: Transfer to [facility] tomorrow. cc: MD Ace Shi MD
[2018-11-06] MEDS: MELATONIN PO SCH (20:26)
[2018-11-06] MEDS: DESYREL PO SCH (20:26)
[2018-11-06] MEDS: LEVAQUIN 500 MG in NS 100 ML IV SCH (20:27)
[2018-11-07] MEDS: DUONEB (A & A) INH SCH ×3 (03:52→11:14)
[2018-11-07] MEDS: ZOSYN 3.375 GM in NS 50 ML IV SCH ×2 (05:33→06:19)
[2018-11-07] MEDS: SENOKOT PO SCH ×2 (05:34→09:16)
[2018-11-07] MEDS: NEURONTIN PO SCH ×2 (05:36→09:14)
[2018-11-07] MEDS: HUMALOG SUBQ SCH ×2 (06:19→12:01)
[2018-11-07] MEDS: LINZESS PO SCH (06:19)
[2018-11-07] MEDS ORDERED: LASIX IV ONE (06:27)
--- NOTE | 2018-11-07 07:23 | DISCHARGE SUMMARY ---
ADMISSION DATE: 11/02/2018 DISCHARGE DATE: FINAL DISCHARGE DIAGNOSES: 1. Metabolic encephalopathy. 2. Urinary tract infection. 3. Chronic obstructive pulmonary disease exacerbation. 4. Left lower lobe pneumonia. 5. Pulmonary edema. 6. Chronic pain. 7. Hyperlipidemia. 8. Hypertension. 9. Peripheral neuropathy 10. Noninsulin dependent diabetes mellitus requiring insulin. HISTORY OF PRESENT ILLNESS: Mr. Hutton is a 73-year-old, white gentleman, resident of [facility] admitted with chest congestion, cough, and expectoration. According to the nurses, the patient did have an altered mental status. The patient was sent to the emergency room and found to have leukocytosis and history suggestive of COPD exacerbation. His urinalysis did reveal UTI. The patient was admitted and treated with IV antibiotics, steroid, pulmonary toilet, and IV hydration. His clinical condition stabilized and improved. Overall, patient is doing better. Chest congestion and cough improved. Mental status improved. The patient is eager to go back to rehab. PHYSICAL EXAMINATION: Vital Signs: As noted. Neck: Supple. No JVD. Lungs: Bibasilar crepitations. Occasional wheezing. Neck: Supple. No JVD. CVS: S1 and S2 heard. Abdomen: Soft and globular. Bowel sounds are present. CERTIFICATION TECHNICIAN: Alert and awake. The patient does have right above-knee amputation. Answering questions fairly well. LABORATORY DATA: Initial urinalysis did reveal 10 to 20 WBC's, glycosuria. Lab data done yesterday, BUN was 12, creatinine 0.6. Potassium was 3.9, sodium 143, and blood sugar 179. Blood gas, pH 7.38, pCO2 32, PO2 was 75. This was done on 2 L via nasal cannula. PT/INR 0.94. PTT was 34.9. Initial leukocyte count was 21.32 thousand. It came down to 8.42. Chest x-ray done yesterday revealed decrease in pulmonary edema. The patient's urine culture grew Pseudomonas which is sensitive to Levaquin. ASSESSMENT AND PLAN: Overall, patient received maximum benefit of hospitalization. I am going to discharge him home on antibiotics tapering dose of steroid. Insulin. Monitor for hypoglycemia. Fall precaution. Oxygen. Encouraged smoking cessation. Overall plan discussed at length with the patient and he is in agreement. cc: Ace Warren MD
[2018-11-07] MEDS: ADVAIR 250/50 DISKUS INH SCH (08:45)
[2018-11-07] MEDS: MUCOMYST 20% INH SCH (08:45)
[2018-11-07] MEDS: BASAGLAR SUBQ SCH (09:13)
[2018-11-07] MEDS: TOPAMAX PO SCH (09:14)
[2018-11-07] MEDS: GLUCOPHAGE XR PO SCH (09:14)
[2018-11-07] MEDS: MS CONTIN PO SCH (09:14)
[2018-11-07] MEDS: LIPITOR PO SCH (09:14)
[2018-11-07] MEDS: LASIX PO SCH (09:15)
[2018-11-07] MEDS: PRILOSEC PO SCH (09:15)
[2018-11-07] MEDS: OXY IR PO SCH (09:15)
[2018-11-07] MEDS: COREG PO SCH (09:16)
[2018-11-07] MEDS: PREDNISONE PO SCH (09:16)
[2018-11-07] MEDS: KLOR-CON PO SCH (09:16)
[2018-11-07 11:32] VITALS: BP 126/56
--- NOTE | 2018-11-30 09:36 | DISCHARGE SUMMARY ---
ADMISSION DATE: 11/02/2018 DISCHARGE DATE: 11/07/2018 ADDENDUM TO DISCHARGE SUMMARY: Mr. Hutton presented with pneumonia which could be due to gram negative bacteria considering his presentation. cc: Ace Warren MD
--- NOTE | 2018-12-01 08:14 | DISCHARGE SUMMARY ---
ADMISSION DATE: 11/02/2018 DISCHARGE DATE: 11/07/2018 ADDENDUM REPORT: Mr. Hutton's pneumonia could be due to gram-negative pneumonia, and the patient was appropriately treated. cc: Ace Warren MD
== END 2018-11-07 14:20 | DRG 177 ==
LOC: SUPCPDRO → EDSEX → ED 09:09 → EDIPHOLD 12:18 → SUATTDRO 12:18 → 3N 20:44
PROVIDERS: ADMIT Internal Medicine; ATTEND Internal Medicine
CPT/HCPCS: 51701; 70450; 71010; 71045; 80053; 81001; 82550; 82805; 82948; 83036; 83605; 83735; 84484; 85025; 85610; 85730; 87040; 87077; 87088; 87186; 93005; 94640; 94760; 94761; 94799; 96361; 96365; 96366; 96367; 96375; 99285; A9270; J0696; J1815; J1956; J2020; J2543; J2920; J2930; J7030; J7040; J7506; J7512; P9612; XXXXX